=== PATIENT | male | born 2000 | race Caucasian/White ===

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

== ENCOUNTER 2019-01-18 17:23 | Emergency (ER) | payer OTHER ==
--- NOTE | 2019-01-18 18:19 | ED ---
General Adult HPI - General Chief complaint: Nausea/Vomiting/Diarrhea Stated complaint: NVD, FEVER Time Seen by Provider: 01/18/19 17:31 Source: patient, RN notes reviewed, old records reviewed Mode of arrival: ambulatory Limitations: no limitations - History of Present Illness Initial comments: 19-year-old male patient presents to ED with approximately 3 days of dry cough, sinus congestion, sore throat, nausea vomiting and diarrhea. Patient denies any abdominal pain. Patient denies any chest pain or shortness breath. Patient denies any other complaints. Patient denies any emesis today. Patient reports mild amount of loose stool today.Patient denies any headaches. Systemic: Pt denies fatigue, myalgia, fever/chills, rash. Pt denies weakness, n ight sweats, weight loss. Neuro: Pt denies headache, visual disturbances, syncope or pre-syncope. HEENT: Pt denies ocular discharge or irritation, otalgia, or notable lymphadenopathy. Cardiopulmonary: Pt denies chest pain, SOB, heart palpitations, dyspnea on exertion. Abdominal/GI: Pt denies abdominal pain. : Pt denies dysuria, burning w/ urination, frequency/urgency. Denies new onset urinary or bowel incontinence. MSK: Pt denies myalgia, loss of strength or function in extremities. Neuro: Pt denies new onset weakness, paresthesias. - Related Data Home Medications Medication Instructions Recorded Confirmed Phenyleph/Acetaminophn/Doxylam 1 cap PO BID PRN 01/18/19 01/18/19 [Vicks Dayquil-Nyquil Sinex Cap] guaiFENesin [Mucinex] 600 mg PO BID PRN 01/18/19 01/18/19 Previous Rx's Medication Instructions Recorded Doxycycline [Vibramycin] 100 mg PO BID 7 Days #14 cap 01/18/19 Ondansetron Odt [Zofran ODT] 4 mg PO Q8HR PRN #20 tab 01/18/19 Allergies Allergy/AdvReac Type Severity Reaction Status Date / Time aripiprazole [From Abilify] Allergy Unknown Verified 01/18/19 17:37 codeine Allergy Unknown Verified 01/18/19 17:37 Review of Systems ROS Statement: Those systems with pertinent positive or pertinent negative responses have been documented in the HPI. ROS Other: All systems not noted in ROS Statement are negative. Past Medical History Past Medical History: No Reported History Additional Past Medical History / Comment(s): hydrocephalus History of Any Multi-Drug Resistant Organisms: None Reported Past Surgical History: No Surgical Hx Reported Additional Past Surgical History / Comment(s): lumbar lp shunt Past Psychological History: No Psychological Hx Reported Smoking Status: Current every day smoker Past Alcohol Use History: None Reported Past Drug Use History: None Reported General Exam - General Exam Comments Initial Comments: Constitutional: NAD, AOX3, Pt has pleasant affect. HEENT: NC/AT, trachea midline, neck supple, no lymphadenopathy. Posterior pharynx non erythematous, without exudates. External ears appear normal, without discharge. Mucous membranes moist. Eyes PERRLA, EOM intact. There is no scleral icterus. No pallor noted. Cardiopulmonary: RRR, no murmurs, rubs or gallops, no JVD noted. Lungs CTAB in anterior and posterior cline. No peripheral edema. Abdominal exam: Abdomen soft and non-distended. Abdomen non-tender to palpation in all 4 quadrants. Bowel sounds active in LLQ. No hepatosplenomegaly. No ecchymosis Neuro: CN II-XII intact. No nuchal rigidity. MSK: No posterior calf tenderness bilaterally, homans sign negative bilaterally. Posterior tibialis and radial pulse +2 bilaterally. Sensation intact in upper and lower extremities. Full active ROM in upper and lower extremities, 5/5 stregnth. Limitations: no limitations Course Vital Signs 01/18/19 17:25 Temperature 98.3 F Pulse Rate 93 Respiratory 20 Rate Blood Pressure 137/75 O2 Sat by Pulse 99 Oximetry Medical Decision Making - Medical Decision Making 19-year-old male patient presents to ED with approximately 3 days of dry cough, sinus congestion, sore throat, nausea vomiting and diarrhea. Patient denies any abdominal pain. Patient denies any chest pain or shortness breath. Patient denies any other complaints. Patient denies any emesis today. Patient reports mild amount of loose stool today. Patient denies any headaches. Physical exam did not display acute pathology. Abdomen nontender to palpation. Chest x-ray did not display acute cardio pulmonary process. Patient to be discharged with one week of doxycycline for sinusitis. Patient additionally describes Zofran as needed for nausea. Patient will follow-up with primary care providers in 1-2 days. Patient return to ER condition worsens in any way. Return parameters discussed, patient was understanding. Case discussed with Dr. Lindo. - Lab Data Lab Results 01/18/19 Range/Units 18:25 Influenza Type A RNA Not Detected (Not Detectd) Influenza Type B (PCR) Not Detected (Not Detectd) Disposition Clinical Impression: Sinusitis, Nausea vomiting and diarrhea Disposition: HOME SELF-CARE Condition: Stable Instructions (If sedation given, give patient instructions): Acute Nausea and Vomiting (ED), Acute Diarrhea (ED), Sinusitis (ED) Additional Instructions: Patient to adhere to previously discussed treatment plan and will take medication(s) as directed. Patient to follow up with PCP in 1-2 days. Patient to return to ED if symptoms do not improve. Please take medication as prescribed. Please return to ER if condition worsens in anyway. Prescriptions: Doxycycline [Vibramycin] 100 mg PO BID 7 Days #14 cap Ondansetron Odt [Zofran ODT] 4 mg PO Q8HR PRN #20 tab PRN Reason: Nausea Is patient prescribed a controlled substance at d/c from ED?: No Referrals: None,Stated [Primary Care Provider] - 1-2 days [facility] [NON-STAFF] - 1-2 days
--- NOTE | 2019-01-18 18:31 | XR ---
EXAMINATION TYPE: XR chest 2V DATE OF EXAM: 01/18/2019 COMPARISON: NONE HISTORY: Fever TECHNIQUE: Frontal and lateral views of the chest are obtained. FINDINGS: Heart and mediastinum are normal. Lungs are clear. Diaphragm is normal. Bony thorax appear s intact. There is thoracic levoscoliosis. IMPRESSION: Scoliotic deformity. No cardiopulmonary disease.
[2019-01-18 19:41] VITALS: BP 131/88; RESP 18; TEMP 97.7
[2019-01-18 19:44] VITALS: PULSE 78
== END 2019-01-18 19:35 | disposition home or self-care (01) ==
LOC: EC 17:23
DX: J32.9 Chronic sinusitis, unspecified (principal); R11.2 Nausea with vomiting, unspecified; R19.7 Diarrhea, unspecified; G91.9 Hydrocephalus, unspecified; Z98.2 Presence of cerebrospinal fluid drainage device; F17.200 Nicotine dependence, unspecified, uncomplicated; Z88.5 Allergy status to narcotic agent; Z88.8 Allergy status to other drugs, medicaments and biological substances
CPT/HCPCS: 71046; 87502; 99284

== ENCOUNTER 2019-04-28 09:37 | Emergency (ER) | payer OTHER ==
[2019-04-28 09:43] VITALS: BP 125/56; PULSE 87; RESP 18; TEMP 97.6
--- NOTE | 2019-04-28 09:57 | ED ---
Upper Extremity HPI - General Chief Complaint: Extremity Injury, Upper Stated Complaint: POSS INFECTION ON SUTURES, 5TH DIGIT INJURY Time Seen by Provider: 04/28/19 09:44 Source: patient, RN notes reviewed Mode of arrival: ambulatory Limitations: no limitations - History of Present Illness Initial Comments: 19-year-old male presented from for possible infection to sutures. He had him placed on Tuesday at [facility] after laceration caused by razor grinder tetanus is updated no antibiotics given. Patient's noticed increasing redness last day or so. No fevers chills no drainage. Patient states that he smashed his finger in a door while back and states the nail still black and blue but no pain no redness no drainage. - Related Data Previous Rx's Medication Instructions Recorded Cephalexin [Keflex] 500 mg PO Q6HR #28 cap 04/28/19 Allergies Allergy/AdvReac Type Severity Reaction Status Date / Time aripiprazole [From Abilify] Allergy Unknown Verified 04/28/19 09:46 codeine Allergy Unknown Verified 04/28/19 09:46 Review of Systems ROS Statement: Those systems with pertinent positive or pertinent negative responses have been documented in the HPI. ROS Other: All systems not noted in ROS Statement are negative. Past Medical History Past Medical History: No Reported History Additional Past Medical History / Comment(s): hydrocephalus History of Any Multi-Drug Resistant Organisms: None Reported Past Surgical History: No Surgical Hx Reported Additional Past Surgical History / Comment(s): lumbar lp shunt Past Psychological History: No Psychological Hx Reported Smoking Status: Current every day smoker Past Alcohol Use History: None Reported Past Drug Use History: None Reported General Exam Limitations: no limitations General appearance: alert, in no apparent distress Head exam: Present: atraumatic, normocephalic, normal inspection Eye exam: Present: normal appearance, PERRL, EOMI. Absent: scleral icterus, conjunctival injection, periorbital swelling Respiratory exam: Present: normal lung sounds bilaterally. Absent: respiratory distress, wheezes, rales, rhonchi, stridor Cardiovascular Exam: Present: regular rate, normal rhythm, normal heart sounds. Absent: systolic murmur, diastolic murmur, rubs, gallop, clicks Extremities exam: Present: other (Left arm there is a laceration with sutures in place with mild erythema no purulent drainage, fifth digit there is a subungual hematoma which is old no tenderness no signs of infection.) Skin exam: Present: warm, dry, intact, normal color. Absent: rash Course Vital Signs 04/28/19 09:41 Temperature 97.6 F Pulse Rate 87 Respiratory 18 Rate Blood Pressure 125/56 O2 Sat by Pulse 100 Oximetry Medical Decision Making - Medical Decision Making 19-year-old male presented for possible infection. Patient has early signs of infection to his sutures. Patient placed on Keflex. We discussed wound care patient has a subungual hematoma which is old nail is loose there is no signs of necrotic skin no infection. Disposition Clinical Impression: Subungual hematoma, Infected wound Disposition: HOME SELF-CARE Condition: Stable Instructions (If sedation given, give patient instructions): Wound Infection (ED) Additional Instructions: Please return to the Emergency Department if symptoms worsen or any other concer ns. Prescriptions: Cephalexin [Keflex] 500 mg PO Q6HR #28 cap Is patient prescribed a controlled substance at d/c from ED?: No Referrals: None,Stated [Primary Care Provider] - 1-2 days Time of Disposition: 09:57
== END 2019-04-28 10:00 | disposition home or self-care (01) ==
LOC: EC 09:37
DX: S60.152A Contusion of left little finger with damage to nail, initial encounter (principal); T81.49XA Infection following a procedure, other surgical site, initial encounter; F17.200 Nicotine dependence, unspecified, uncomplicated; Z88.5 Allergy status to narcotic agent; Z88.8 Allergy status to other drugs, medicaments and biological substances; W23.0XXA Caught, crushed, jammed, or pinched between moving objects, initial encounter
CPT/HCPCS: 99283

== ENCOUNTER 2019-07-28 19:51 | Emergency (ER) | payer OTHER ==
[2019-07-28 20:02] VITALS: BP 127/68; PULSE 86; RESP 16; TEMP 98.4
--- NOTE | 2019-07-28 20:14 | ED ---
URI HPI - General Chief Complaint: Upper Respiratory Infection Stated Complaint: Cough,Runny Nose,Sore throat Source: patient Mode of arrival: ambulatory Limitations: no limitations - History of Present Illness Initial Comments: 19-year-old male with history of cough and congestion times one week. Patient states his cough and congestion for the past week. Patient states occasionally the pain is chest pain cough. Denies any chest pain and absence of cough he doesn't appear deep inspiration. Patient denies shortness of breath. Denies nausea vomiting diarrhea. Denies high fevers. Patient states he has a mild sore throats as a difficulty breathing or swallowing. Patient denies any hearing loss or ear pain. Patient denies any other complaints. Patient appears well upon arrival. Positive sick contacts grandfather has ever in the home has the same symptoms. Remaining abuse is negative. - Related Data Previous Rx's Medication Instructions Recorded Cephalexin [Keflex] 500 mg PO Q6HR #28 cap 04/28/19 Azithromycin [Zithromax Z-pack] 0 mg PO DIRECTED #6 tab 07/28/19 predniSONE 20 mg PO DAILY 5 Days #5 tab 07/28/19 Allergies Allergy/AdvReac Type Severity Reaction Status Date / Time aripiprazole [From Abilify] Allergy Unknown Verified 07/28/19 20:02 codeine Allergy Unknown Verified 07/28/19 20:02 Review of Systems ROS Statement: Those systems with pertinent positive or pertinent negative responses have been documented in the HPI. ROS Other: All systems not noted in ROS Statement are negative. Past Medical History Past Medical History: No Reported History Additional Past Medical History / Comment(s): hydrocephalus History of Any Multi-Drug Resistant Organisms: None Reported Past Surgical History: No Surgical Hx Reported Additional Past Surgical History / Comment(s): lumbar lp shunt Past Psychological History: No Psychological Hx Reported Smoking Status: Current every day smoker Past Alcohol Use History: None Reported Past Drug Use History: None Reported General Exam - General Exam Comments Initial Comments: General: The patient is awake and alert, in no distress, and does not appear acutely ill. Eye: +3 mm pupils are equal, round and reactive to light, extra-ocular movements are intact. No nystagmus. There is normal conjunctiva bilaterally. No signs of icterus. No photophobia Ears, nose, mouth and throat: There are moist mucous membranes and no oral lesions. Oropharynx was not erythematous there is no tonsillar enlargement exudates or lesions. Uvula midline. Tympanic membranes are not erythematous or is no effusions bulging or retraction. No tenderness to palpation of the mastoid. No anterior cervical lymphadenopathy. Rhinorrhea, clear and bilateral nares. No tripoding, no drooling. Neck: The neck is supple, there is no tenderness or JVD. No nuchal rigidity Cardiovascular: There is a regular rate and rhythm. No murmur, rub or gallop is appreciated. Respiratory: Lungs are clear to auscultation, respirations are non-labored, breath sounds are equal. No wheezes, stridor, rales, or rhonchi. No retractions or abdominal breathing. Gastrointestinal: Soft, non-distended, non-tender abdomen without masses or organomegaly noted. There is no rebound or guarding present. Bowel sounds are unremarkable. Musculoskeletal: Normal ROM, no tenderness. Strength 5/5. Sensation intact. Radial pulses equal bilaterally 2+. Neurological: A&O x 3. CN II-XII intact, There are no obvious motor or sensory deficits. Coordination appears grossly intact. Speech appears normal, no muffling. Skin: Skin is warm and dry and no rashes or lesions are noted. No extremity edema Psychiatric: Cooperative Limitations: no limitations Course Vital Signs 07/28/19 20:00 Temperature 98.4 F Pulse Rate 86 Respiratory 16 Rate Blood Pressure 127/68 O2 Sat by Pulse 99 Oximetry Medical Decision Making - Medical Decision Making 19-year-old male presents emergency department for chief complaint of congestion cough 1 week. Lungs clear chest x-ray no focal consolidation. Rapid strep negative. Patient appears well nontoxic vital signs stable afebrile. Positive sick contacts most likely viral syndrome patient discharged after discussing case with attending provider - Lab Data Lab Results 07/28/19 Range/Units 20:25 Group A Strep Rapid Negative (Negative) Disposition Clinical Impression: Upper respiratory infection Disposition: HOME SELF-CARE Condition: Good Instructions (If sedation given, give patient instructions): Upper Respiratory Infection (ED) Additional Instructions: Please use medication as discussed. Please follow-up with family doctor in the next 2 days. Please return to emergency room if the symptoms increase or worsen or for any other concerns. Prescriptions: predniSONE 20 mg PO DAILY 5 Days #5 tab Azithromycin [Zithromax Z-pack] 0 mg PO DIRECTED #6 tab Is patient prescribed a controlled substance at d/c from ED?: No Referrals: Meghan Griffin MD [Primary Care Provider] - 1-2 days Time of Disposition: 21:22
--- NOTE | 2019-07-28 20:38 | XR ---
EXAMINATION TYPE: XR chest 2V DATE OF EXAM: 07/28/2019 COMPARISON: 01/18/2019 HISTORY: Cough TECHNIQUE: Frontal and lateral views of the chest are obtained. FINDINGS: Heart and mediastinum are normal. Lungs are clear. There is thoracic levoscoliosis. Diaphr agm is normal. Bony thorax is intact. IMPRESSION: Levoscoliosis. No active cardiopulmonary disease. No change.
== END 2019-07-28 21:34 | disposition home or self-care (01) ==
LOC: EC 19:51
DX: J06.9 Acute upper respiratory infection, unspecified (principal); F17.200 Nicotine dependence, unspecified, uncomplicated; Z88.5 Allergy status to narcotic agent; Z88.8 Allergy status to other drugs, medicaments and biological substances
CPT/HCPCS: 71046; 87081; 87430; 99283

== ENCOUNTER 2020-02-20 19:18 | Inpatient (IN) | payer OTHER ==
[2020-02-20] MEDS: NALOXONE 0.4 MG/ML 10 ML VIAL IVP PRN ×2 (19:19→19:21)
[2020-02-20] MEDS ORDERED: ETOMIDATE 2 MG/ML 10 ML VIAL IVP STA (19:27)
[2020-02-20] MEDS ORDERED: SUCCINYLCHOLINE CHLORIDE VIAL 200 MG/10 ML VIAL IV STA (19:34)
[2020-02-20] MEDS ORDERED: LORazepam 2 MG/ML INJ IV PRN (19:36)
[2020-02-20] MEDS ORDERED: IPRATROPIUM-ALBUTEROL 3 ML NEB INHALATION PRN (19:36)
--- NOTE | 2020-02-20 19:38 | ED ---
General Adult HPI - General Chief complaint: Overdose Stated complaint: Overdose Time Seen by Provider: 02/20/20 19:23 Source: EMS, RN notes reviewed Mode of arrival: EMS Limitations: altered mental status, physical limitation - History of Present Illness Initial comments: Patient is unresponsive 20 male presenting to the emergency department with reported overdose. Patient supposedly took a large amount of alcohol as well as multiple muscle relaxers. Patient was helped into a room by his friend. Patient and friend then later found unresponsive. Patient given Narcan without improvement of symptoms by EMS. Patient is unresponsive and provides no history. - Related Data Home Medications Medication Instructions Recorded Confirmed No Known Home Medications 02/20/20 02/20/20 Allergies Allergy/AdvReac Type Severity Reaction Status Date / Time aripiprazole [From Abilify] Allergy Unknown Verified 02/20/20 19:47 codeine Allergy Unknown Verified 02/20/20 19:47 Review of Systems ROS Statement: Those systems with pertinent positive or pertinent negative responses have been documented in the HPI. ROS Other: All systems not noted in ROS Statement are negative. Limitations: ROS unobtainable due to patients medical condition Past Medical History Past Medical History: No Reported History Additional Past Medical History / Comment(s): hydrocephalus History of Any Multi-Drug Resistant Organisms: None Reported Past Surgical History: No Surgical Hx Reported Additional Past Surgical History / Comment(s): lumbar lp shunt Past Psychological History: No Psychological Hx Reported Smoking Status: Current every day smoker Past Alcohol Use History: None Reported Past Drug Use History: None Reported General Exam Limitations: altered mental status, physical limitation General appearance: obtunded, other (Marked decreased respirations. No response to pain.) Head exam: Present: atraumatic Eye exam: Present: normal appearance ENT exam: Present: normal oropharynx Neck exam: Present: normal inspection Respiratory exam: Present: other (Decreased respiratory rate) Cardiovascular Exam: Present: regular rate, normal rhythm GI/Abdominal exam: Present: soft. Absent: tenderness Extremities exam: Present: normal inspection Neurological exam: Present: altered Expanded Eye Response: (1) no response Motor Response: (4) withdraws to pain (Minimally with aggressive sternal rub) Verbal Response: (1) no verbal response Psychiatric exam: Present: other (Nonverbal) Skin exam: Present: other (Track oropeza) Course Vital Signs 02/20/20 02/20/20 02/20/20 19:19 19:29 19:39 Temperature 98 F 98.6 F Pulse Rate 56 L 47 L Pulse Rate [ Bilateral Supine Radial] Respiratory 16 10 L 9 L Rate Blood Pressure 143/104 164/143 O2 Sat by Pulse 94 L 100 Oximetry 02/20/20 02/20/20 02/20/20 19:45 20:00 20:15 Temperature Pulse Rate 47 L 44 L Pulse Rate [ Bilateral Supine Radial] Respiratory 9 L 16 Rate Blood Pressure 176/120 175/120 191/116 O2 Sat by Pulse 100 100 Oximetry 02/20/20 02/20/20 02/20/20 20:19 20:30 20:43 Temperature Pulse Rate 43 L 44 L Pulse Rate [ 48 L Bilateral Supine Radial] Respiratory 10 L 20 Rate Blood Pressure 177/117 179/118 O2 Sat by Pulse 100 100 Oximetry 02/20/20 02/20/20 02/20/20 20:44 20:45 20:46 Temperature Pulse Rate 43 L 44 L 44 L Pulse Rate [ Bilateral Supine Radial] Respiratory 16 22 16 Rate Blood Pressure 179/118 179/118 162/114 O2 Sat by Pulse 100 100 99 Oximetry 02/20/20 02/20/20 02/20/20 20:47 20:48 20:49 Temperature Pulse Rate 43 L 44 L 44 L Pulse Rate [ Bilateral Supine Radial] Respiratory 20 20 20 Rate Blood Pressure 162/114 162/114 162/114 O2 Sat by Pulse 99 100 98 Oximetry 02/20/20 02/20/20 02/20/20 20:50 20:51 20:52 Temperature Pulse Rate 43 L 44 L 44 L Pulse Rate [ Bilateral Supine Radial] Respiratory 20 20 20 Rate Blood Pressure 162/114 162/114 162/114 O2 Sat by Pulse 100 99 97 Oximetry 02/20/20 02/20/20 02/20/20 20:53 20:54 20:55 Temperature Pulse Rate 45 L 46 L 47 L Pulse Rate [ Bilateral Supine Radial] Respiratory 20 20 20 Rate Blood Pressure 162/114 162/114 162/114 O2 Sat by Pulse 97 100 100 Oximetry 02/20/20 02/20/20 02/20/20 20:56 20:57 20:58 Temperature Pulse Rate 47 L 46 L 43 L Pulse Rate [ Bilateral Supine Radial] Respiratory 26 H 20 20 Rate Blood Pressure 162/114 162/114 162/114 O2 Sat by Pulse 100 99 99 Oximetry 02/20/20 02/20/20 02/20/20 20:59 21:00 21:01 Temperature Pulse Rate 44 L 44 L 45 L Pulse Rate [ Bilateral Supine Radial] Respiratory 20 20 27 H Rate Blood Pressure 162/114 162/114 159/109 O2 Sat by Pulse 98 99 100 Oximetry - Reevaluation(s) Reevaluation #1: 02/20/20 19:45 Patient does not demonstrate ability to protect airway. Patient is not improved with 4 mg of Narcan. Patient was intubated by [facility] [employer] [facility] 02/20/20 21:08 Family states there was concern that patient reportedly took 20 baclofen. EKG Findings - EKG Comments: EKG Findings:: Normal sinus rhythm at 80. MD 140. QRS 104. QT 410. QTc 472. Normal axis. LVH criteria. Prominent T waves. Medical Decision Making - Medical Decision Making Patient again reevaluated and unchanged. Case was discussed with practitioner Mireya, covering for Dr. Angulo, who will admit. Case also discussed with Dr. Lopes, who will consult for critical care. - Lab Data Result diagrams: 02/20/20 19:18 02/20/20 19:18 Lab Results 02/20/20 02/20/20 02/20/20 Range/Units 19:18 19:18 19:18 WBC 17.1 H (3.8-10.6) k/uL RBC 5.30 (4.30-5.90) m/uL Hgb 16.5 (13.0-17.5) gm/dL Hct 48.9 (39.0-53.0) % MCV 92.2 (80.0-100.0) fL MCH 31.1 (25.0-35.0) pg MCHC 33.7 (31.0-37.0) g/dL RDW 12.7 (11.5-15.5) % Plt Count 266 (150-450) k/uL Neutrophils % 79 % Lymphocytes % 14 % Monocytes % 6 % Eosinophils % 0 % Basophils % 0 % Neutrophils # 13.5 H (1.3-7.7) k/uL Lymphocytes # 2.3 (1.0-4.8) k/uL Monocytes # 0.9 (0-1.0) k/uL Eosinophils # 0.1 (0-0.7) k/uL Basophils # 0.1 (0-0.2) k/uL PT 10.5 (9.0-12.0) sec INR 1.0 (<1.2) Carbon Monoxide, Quant (<10.0) % Sodium (137-145) mmol/L Potassium (3.5-5.1) mmol/L Chloride (98-107) mmol/L Carbon Dioxide (22-30) mmol/L Anion Gap mmol/L BUN (9-20) mg/dL Creatinine (0.66-1.25) mg/dL Est GFR (CKD-EPI)AfAm (>60 ml/min/1.73 sqM) Est GFR (CKD-EPI)NonAf (>60 ml/min/1.73 sqM) Glucose (74-99) mg/dL Calcium (8.4-10.2) mg/dL Magnesium (1.6-2.3) mg/dL Total Bilirubin (0.2-1.3) mg/dL AST (17-59) U/L ALT (4-49) U/L Alkaline Phosphatase (38-126) U/L Creatine Kinase (55-170) U/L Total Protein (6.3-8.2) g/dL Albumin (3.5-5.0) g/dL Salicylates mg/dL Urine Opiates Screen Not Detected (NotDetected) Ur Oxycodone Screen Not Detected (NotDetected) Urine Methadone Screen Not Detected (NotDetected) Ur Propoxyphene Screen Not Detected (NotDetected) Acetaminophen ug/mL Ur Barbiturates Screen Not Detected (NotDetected) U Tricyclic Antidepress Not Detected (NotDetected) Ur Phencyclidine Scrn Not Detected (NotDetected) Ur Amphetamines Screen Not Detected (NotDetected) U Methamphetamines Scrn Not Detected (NotDetected) U Benzodiazepines Scrn Not Detected (NotDetected) Urine Cocaine Screen Not Detected (NotDetected) U Marijuana (THC) Screen Detected H (NotDetected) Serum Alcohol mg/dL 02/20/20 02/20/20 02/20/20 Range/Units 19:18 19:18 20:55 WBC (3.8-10.6) k/uL RBC (4.30-5.90) m/uL Hgb (13.0-17.5) gm/dL Hct (39.0-53.0) % MCV (80.0-100.0) fL MCH (25.0-35.0) pg MCHC (31.0-37.0) g/dL RDW (11.5-15.5) % Plt Count (150-450) k/uL Neutrophils % % Lymphocytes % % Monocytes % % Eosinophils % % Basophils % % Neutrophils # (1.3-7.7) k/uL Lymphocytes # (1.0-4.8) k/uL Monocytes # (0-1.0) k/uL Eosinophils # (0-0.7) k/uL Basophils # (0-0.2) k/uL PT (9.0-12.0) sec INR (<1.2) Carbon Monoxide, Quant 6.4 (<10.0) % Sodium 137 (137-145) mmol/L Potassium 3.6 (3.5-5.1) mmol/L Chloride 106 (98-107) mmol/L Carbon Dioxide 26 (22-30) mmol/L Anion Gap 5 mmol/L BUN 15 (9-20) mg/dL Creatinine 0.64 L (0.66-1.25) mg/dL Est GFR (CKD-EPI)AfAm >90 (>60 ml/min/1.73 sqM) Est GFR (CKD-EPI)NonAf >90 (>60 ml/min/1.73 sqM) Glucose 99 (74-99) mg/dL Calcium 8.3 L (8.4-10.2) mg/dL Magnesium 2.0 (1.6-2.3) mg/dL Total Bilirubin 0.3 (0.2-1.3) mg/dL AST 34 (17-59) U/L ALT 12 (4-49) U/L Alkaline Phosphatase 67 (38-126) U/L Creatine Kinase 54 L 53 L (55-170) U/L Total Protein 6.2 L (6.3-8.2) g/dL Albumin 3.7 (3.5-5.0) g/dL Salicylates <1.0 mg/dL Urine Opiates Screen (NotDetected) Ur Oxycodone Screen (NotDetected) Urine Methadone Screen (NotDetected) Ur Propoxyphene Screen (NotDetected) Acetaminophen <10.0 ug/mL Ur Barbiturates Screen (NotDetected) U Tricyclic Antidepress (NotDetected) Ur Phencyclidine Scrn (NotDetected) Ur Amphetamines Screen (NotDetected) U Methamphetamines Scrn (NotDetected) U Benzodiazepines Scrn (NotDetected) Urine Cocaine Screen (NotDetected) U Marijuana (THC) Screen (NotDetected) Serum Alcohol <10 mg/dL - Radiology Data Radiology results: report reviewed (Computed tomography scan of the brain reveals no acute process), image reviewed (Chest x-ray shows appropriately placed ET tube as well as NG tube. Stable scatter left perihilar interstitial markings) Critical Care Time Critical Care Time: Yes Total Critical Care Time: 33 Disposition Clinical Impression: Accidental drug overdose, Respiratory arrest Disposition: ADMITTED IP TO THIS HOSP Is patient prescribed a controlled substance at d/c from ED?: No Referrals: None,Stated [Primary Care Provider] - 1-2 days Decision Time: 21:08
[2020-02-20] MEDS: PROPOFOL 1,000 MG in EMPTY BAG 1 BAG IV SCH (19:44)
--- NOTE | 2020-02-20 19:50 | XR ---
EXAMINATION TYPE: XR chest 1V DATE OF EXAM: 02/20/2020 COMPARISON: 07/28/2019 HISTORY: Line and tube placement TECHNIQUE: Single frontal view of the chest is obtained. FINDINGS: Levoscoliosis of the thoracic spine is seen with exaggerated left pulmonary vasculature an d interstitium. Left perihilar airspace disease is possible. Right lung remains clear. Endotracheal t ube is located approximately 4.5 cm from the winter. Orogastric tube is located appropriately in the left upper quadrant in the region of the gastric fundus with its fenestrated portion beyond the gastr oesophageal junction. IMPRESSION: 1. Endotracheal tube placed 4.5 cm from the winter and appropriately placed enteric tube. Line 2. Stable scattered left perihilar interstitial markings that may be secondary to the thoracic levosc oliosis and/or left perihilar airspace disease.
[2020-02-20 19:56] LABS: Basophils # (A) 0.1 k/uL (0-0.2); Basophils % (A) 0 %; Eosinophils # (A) 0.1 k/uL (0-0.7); Eosinophils % (A) 0 %; HCT 48.9 % (39.0-53.0); HGB 16.5 gm/dL (13.0-17.5); Lymphocytes # (A) 2.3 k/uL (1.0-4.8); Lymphocytes % (A) 14 %; MCH 31.1 pg (25.0-35.0); MCHC 33.7 g/dL (31.0-37.0); MCV 92.2 fL (80.0-100.0); Mean Platelet Volume 7.4; Monocytes # (A) 0.9 k/uL (0-1.0); Monocytes % (A) 6 %; Neutrophils # (A) 13.5 k/uL (1.3-7.7); Neutrophils % (A) 79 %; Platelet Count 266 k/uL (150-450); RDW 12.7 % (11.5-15.5); WBC 17.1 k/uL (3.8-10.6)
[2020-02-20 20:01] LABS: ALT 12 U/L (4-49); AST 34 U/L (17-59); Acetaminophen <10.0 ug/mL; African American GFR (CKD) >90 (>60 ml/min/1.73 sqM); Albumin 3.7 g/dL (3.5-5.0); Alcohol <10 mg/dL; Alkaline Phosphatase 67 U/L (38-126); Anion Gap 5 mmol/L; Blood Urea Nitrogen 15 mg/dL (9-20); Calcium 8.3 mg/dL (8.4-10.2); Carbon Dioxide 26 mmol/L (22-30); Chloride 106 mmol/L (98-107); Creatine Kinase 54 U/L (55-170); Glucose 99 mg/dL (74-99); Non-African American GFR(CKD) >90 (>60 ml/min/1.73 sqM); Potassium 3.6 mmol/L (3.5-5.1); Prothrombin Time 10.5 sec (9.0-12.0); Salicylate <1.0 mg/dL; Sodium 137 mmol/L (137-145); Total Bilirubin 0.3 mg/dL (0.2-1.3); Total Protein 6.2 g/dL (6.3-8.2)
[2020-02-20 20:13] LABS: Amphetamine Screen,Urine Not Detected (NotDetected); Barbiturate Screen,Urine Not Detected (NotDetected); Benzodiazepines Screen,Urine Not Detected (NotDetected); Cocaine Screen,Urine Not Detected (NotDetected); Methadone Screen, Urine Not Detected (NotDetected); Opiate Screen,Urine Not Detected (NotDetected); Oxycodone Screen, Urine Not Detected (NotDetected); Phencyclidine Screen,Urine Not Detected (NotDetected); Tricyclic Antidepressant,Urine Not Detected (NotDetected); Urn Cannabinoid Scrn Detected (NotDetected)
[2020-02-20] MEDS: LORazepam 2 MG/ML INJ IV PRN (20:14)
--- NOTE | 2020-02-20 20:35 | CT ---
EXAMINATION TYPE: CT brain wo con DATE OF EXAM: 02/20/2020 COMPARISON: 09/20/2012 HISTORY: Altered mental status. CT DLP: 1091.4 mGycm Automated exposure control for dose reduction was used. Ventricles and sulci appear normal. There is no mass effect nor midline shift. There is no sign of in tracranial hemorrhage. The calvarium is intact. IMPRESSION: Negative head CT scan. No change.
[2020-02-20 21:08] LABS: ABG Base Excess -2.1 mmol/L; ABG HCO3 23 mmol/L (21-25); ABG PCO2 36 mmHg (35-45); ABG PH 7.41 (7.35-7.45); ABG PO2 >400 mmHg (83-108); ABG TCO2 24 mmol/L (19-24); Allen Test Performed? Yes
[2020-02-20] MEDS ORDERED: NALOXONE 0.4 MG/ML 1 ML VIAL IV PRN (21:08)
[2020-02-20] MEDS: DEXTROSE 5%-0.45% NACL 1,000 ML IV SCH (21:43)
[2020-02-20 22:54] LABS: Glucose,Whole Blood 114 mg/dL (75-99)
[2020-02-20] MEDS: IPRATROPIUM-ALBUTEROL 3 ML NEB INHALATION SCH ×2 (23:25→23:49)
[2020-02-20] MEDS: CHLORHEXIDINE GLUCONATE 15 ML CUP MUCOUS MEM SCH (23:47)
[2020-02-21] MEDS: PROPOFOL 1,000 MG in EMPTY BAG 1 BAG IV SCH ×3 (00:38→20:19)
[2020-02-21] MEDS ORDERED: POTASSIUM BICARBONATE/CIT AC 20 MEQ TABLET.EFF NG-TUBE SCH (03:00)
[2020-02-21] MEDS: IPRATROPIUM-ALBUTEROL 3 ML NEB INHALATION SCH ×5 (04:20→19:28)
[2020-02-21] MEDS: DEXTROSE 5%-0.45% NACL 1,000 ML IV SCH ×3 (05:08→20:18)
[2020-02-21 05:44] LABS: Basophils % (A) 0 %; Eosinophils # (A) 0.1 k/uL (0-0.7); Eosinophils % (A) 1 %; HCT 49.7 % (39.0-53.0); HGB 16.2 gm/dL (13.0-17.5); Lymphocytes # (A) 2.4 k/uL (1.0-4.8); Lymphocytes % (A) 19 %; MCH 30.4 pg (25.0-35.0); MCHC 32.7 g/dL (31.0-37.0); MCV 93.1 fL (80.0-100.0); Mean Platelet Volume 7.2; Monocytes # (A) 0.9 k/uL (0-1.0); Monocytes % (A) 7 %; Neutrophils % (A) 72 %; Platelet Count 287 k/uL (150-450); RBC 5.34 m/uL (4.30-5.90); RDW 12.8 % (11.5-15.5); WBC 12.6 k/uL (3.8-10.6)
[2020-02-21 06:25] LABS: ALT 11 U/L (4-49); AST 19 U/L (17-59); African American GFR (CKD) >90 (>60 ml/min/1.73 sqM); Albumin 3.4 g/dL (3.5-5.0); Alkaline Phosphatase 65 U/L (38-126); Anion Gap 5 mmol/L; Blood Urea Nitrogen 9 mg/dL (9-20); Calcium 8.7 mg/dL (8.4-10.2); Carbon Dioxide 27 mmol/L (22-30); Chloride 105 mmol/L (98-107); Glucose 114 mg/dL (74-99); Non-African American GFR(CKD) >90 (>60 ml/min/1.73 sqM); Potassium 4.4 mmol/L (3.5-5.1); Sodium 137 mmol/L (137-145); Total Bilirubin 0.3 mg/dL (0.2-1.3); Total Protein 5.9 g/dL (6.3-8.2)
--- NOTE | 2020-02-21 06:39 | XR ---
EXAMINATION TYPE: XR chest 1V portable DATE OF EXAM: 02/21/2020 CLINICAL HISTORY: Difficulty breathing progress study. TECHNIQUE: Single AP portable upright view of the chest is obtained. COMPARISON: Chest x-ray from one day earlier FINDINGS: Stable endotracheal and orogastric tubes. No new suspicious focal airspace opacity, pleura l effusion, or pneumothorax seen bilaterally. Interval marked improvement in left perihilar airspace opacity. Cardiac silhouette size is stable and within normal limits. Underlying levoconvex scoliosis centered mid to lower thoracic spine redemonstrated. IMPRESSION: Marked interval improvement in left perihilar acute infiltrate and/or edema. No new infil trate is present.
[2020-02-21 07:38] LABS: ABG Base Excess 4.9 mmol/L; ABG HCO3 30 mmol/L (21-25); ABG Oxygen Saturation 99.5 % (94-97); ABG PCO2 47 mmHg (35-45); ABG PH 7.41 (7.35-7.45); ABG PO2 187 mmHg (83-108); ABG TCO2 31 mmol/L (19-24); Allen Test Performed? Yes
[2020-02-21] MEDS: PANTOPRAZOLE 40 MG/10 ML VIAL IV SCH (08:33)
[2020-02-21] MEDS: LORazepam 2 MG/ML INJ IV PRN (08:33)
[2020-02-21] MEDS: CHLORHEXIDINE GLUCONATE 15 ML CUP MUCOUS MEM SCH ×2 (08:33→20:18)
--- NOTE | 2020-02-21 11:47 | P.CNPUL ---
History of Present Illness Consult date: 02/21/20 Requesting physician: Zulema Angulo Reason for consult: other (Drug overdose) Chief complaint: Altered mental status History of present illness: This is a 20-year-old white male, unknown past medical history, patient was brought into the emergency room yesterday with reported overdose. Supposedly the patient took a large amount of alcohol and multiple muscle relaxers. Then the patient became unresponsive, and EMS was notified. Upon EMS arrival, patient received Narcan, he had no responses whatsoever. Patient was hemodynamically stable, but was unresponsive upon arrival to the ER. Upon arrival, patient was intubated, placed on mechanical ventilation. Poison control mostly recommended supportive care measures. His drug screen came back mostly negative except for positive for marijuana. His acetaminophen level was below 10 salicylates level was below 1 and his serum alcohol level was less than 10. Covid 19 PCR was negative. Chest x-ray showed no evidence of infiltrate. CT of the brain was also negative. Upon my evaluation today, patient is in the ICU, he is on mechanical ventilation. Assist control rate of 20, volume is 400 FiO2 is 40% PEEP of 5. ABG showed a pO2 of 187 pCO2 of 47 pH of 7.41. Patient again is hemodynamically stable, he is in sinus rhythm sometimes sinus tachycardia with a rate of 116. On propofol, and I have recommended stopping the propofol, addressing the patient's mental status, weaning parameters, and if possible the patient will be given a weaning trial in the next few hours. Review of Systems ROS unobtainable: due to endotracheal tube, due to mental status Past Medical History Past Medical History: No Reported History Additional Past Medical History / Comment(s): hydrocephalus History of Any Multi-Drug Resistant Organisms: None Reported Past Surgical History: No Surgical Hx Reported Additional Past Surgical History / Comment(s): lumbar lp shunt Past Psychological History: No Psychological Hx Reported Smoking Status: Unknown if ever smoked Past Alcohol Use History: Unable to Obtain Past Drug Use History: Marijuana Medications and Allergies Home Medications Medication Instructions Recorded Confirmed Type No Known Home Medications 02/20/20 02/20/20 History Allergies Allergy/AdvReac Type Severity Reaction Status Date / Time aripiprazole [From Abilify] Allergy Unknown Verified 02/20/20 19:47 codeine Allergy Unknown Verified 02/20/20 19:47 Physical Exam Vitals: Vital Signs Temp Pulse Pulse Resp BP Pulse Ox 04/30/20 10:26 58 L 02/21/20 10:12 69 02/21/20 09:00 64 20 148/98 98 02/21/20 08:30 62 20 146/96 98 02/21/20 08:00 99.3 F 60 13 156/102 98 02/21/20 07:30 64 20 152/108 97 02/21/20 07:00 63 20 148/106 96 02/21/20 06:30 60 20 144/100 96 02/21/20 06:00 60 20 138/94 95 02/21/20 05:30 62 20 154/101 95 02/21/20 05:00 64 20 132/92 98 02/21/20 04:39 61 02/21/20 04:30 68 20 136/95 97 02/21/20 04:25 64 02/21/20 04:00 97.9 F 59 L 20 139/99 98 02/21/20 03:44 20 02/21/20 03:30 63 16 157/107 98 02/21/20 03:00 55 L 20 158/103 98 02/21/20 02:30 62 20 144/95 97 02/21/20 02:00 64 20 143/107 98 02/21/20 01:30 70 20 137/106 99 02/21/20 01:00 68 20 134/96 99 02/21/20 00:45 74 20 134/96 99 02/21/20 00:30 62 20 135/97 99 02/21/20 00:21 63 20 135/97 99 02/21/20 00:15 58 L 20 138/98 99 02/21/20 00:00 97.5 F L 60 20 133/93 100 02/20/20 23:50 62 02/20/20 23:45 68 20 133/93 100 02/20/20 23:30 59 L 20 174/115 100 02/20/20 23:25 65 02/20/20 23:15 55 L 20 173/115 100 02/20/20 23:09 20 02/20/20 23:00 96.6 F L 52 L 20 152/103 100 02/20/20 22:50 47 L 24 02/20/20 22:00 50 L 20 152/106 100 04/29/20 21:45 50 L 20 156/107 100 02/20/20 21:30 47 L 20 162/109 100 02/20/20 21:15 46 L 20 159/109 100 02/20/20 21:01 45 L 27 H 159/109 100 02/20/20 21:00 44 L 20 162/114 99 02/20/20 20:59 44 L 20 162/114 98 02/20/20 20:58 43 L 20 162/114 99 02/20/20 20:57 46 L 20 162/114 99 02/20/20 20:56 47 L 26 H 162/114 100 02/20/20 20:55 47 L 20 162/114 100 02/20/20 20:54 46 L 20 162/114 100 02/20/20 20:53 45 L 20 162/114 97 02/20/20 20:52 44 L 20 162/114 97 02/20/20 20:51 44 L 20 162/114 99 02/20/20 20:50 43 L 20 162/114 100 02/20/20 20:49 44 L 20 162/114 98 02/20/20 20:48 44 L 20 162/114 100 02/20/20 20:47 43 L 20 162/114 99 02/20/20 20:46 44 L 16 162/114 99 02/20/20 20:45 44 L 22 179/118 100 02/20/20 20:44 43 L 16 179/118 02/20/20 20:43 44 L 20 179/118 100 02/20/20 20:30 43 L 10 L 177/117 100 02/20/20 20:19 48 L 02/20/20 20:15 44 L 16 191/116 100 02/20/20 20:00 175/120 02/20/20 19:45 47 L 9 L 176/120 100 02/20/20 19:39 98.6 F 47 L 9 L 164/143 100 02/20/20 19:29 98 F 56 L 10 L 143/104 94 L 02/20/20 19:21 16 02/20/20 19:19 10 L Intake and Output 02/20/20 02/21/20 02/21/20 22:59 06:59 14:59 Intake Total 2.803 1815.223 403.338 Output Total 275 690 225 Balance -789.063 2336.223 178.338 Intake: Amount of Fluid Infused ( 700 ml) Intake, IV Titration 2.803 1115.223 403.338 Amount Dextrose 5%-0.45% NaCl 1, 1000 375 000 ml @ 125 mls/hr IV . Q8H [facility] Rx#:[id number] Propofol 1,000 mg In 2.803 115.223 28.338 Empty Bag 1 bag @ Titrate IV .Q0M [facility] Rx#: [id number] Output: Urine 275 690 225 Other: Voiding Method Indwelling Catheter Indwelling Catheter Weight 58.4 kg 57.2 kg Physical Exam: Revealed a 20-year-old white male in no distress, on mechanical ventilation. Head: Atraumatic, normocephalic. Endotracheal tube and orogastric tube are intact. HEENT:[Neck is supple.] [No neck masses.] [No thyromegaly.] [No JVD.] PERRLA, EOMI, no icterus. Chest: [Clear throughout, no crackles, no rhonchi, no wheezes.] Cardiac Exam: [Normal S1 and S2, no S3 gallop, no murmur.] Abdomen: [Soft, nontender, no megaly, no rebound, no guarding, normal bowel sounds.] Extremities: [Positive clubbing, no edema, no cyanosis.] Neurological Exam: Sedated, on propofol, not following any instructions, not arousable. Psychiatric: Could not be assessed. We will assess was the patient is off propofol. Skin: No rashes. Results - Laboratory Findings CBC and BMP: 02/21/20 04:28 02/21/20 04:28 ABG ABG pH 7.41 (7.35-7.45) 02/21/20 07:23 ABG pCO2 47 mmHg (35-45) H 02/21/20 07:23 ABG pO2 187 mmHg (83-108) H 02/21/20 07:23 ABG O2 Saturation 99.5 % (94-97) H 02/21/20 07:23 PT/INR, D-dimer PT 10.5 sec (9.0-12.0) 02/20/20 19:18 INR 1.0 (<1.2) 02/20/20 19:18 Abnormal lab findings: Abnormal Labs 04/02/20/20 02/20/20 19:18 19:18 19:18 WBC 17.1 H Neutrophils # 13.5 H ABG pCO2 ABG pO2 ABG HCO3 ABG Total CO2 ABG O2 Saturation Creatinine 0.64 L Glucose POC Glucose (mg/dL) Calcium 8.3 L Creatine Kinase 54 L Total Protein 6.2 L Albumin U Marijuana (THC) Screen Detected H 02/20/20 02/20/20 02/20/20 20:55 21:04 22:52 WBC Neutrophils # ABG pCO2 ABG pO2 >400 H ABG HCO3 ABG Total CO2 ABG O2 Saturation 100.0 H Creatinine Glucose POC Glucose (mg/dL) 114 H Calcium Creatine Kinase 53 L Total Protein Albumin U Marijuana (THC) Screen 02/21/20 02/21/20 02/21/20 04:28 04:28 07:23 WBC 12.6 H Neutrophils # 9.0 H ABG pCO2 47 H ABG pO2 187 H ABG HCO3 30 H ABG Total CO2 31 H ABG O2 Saturation 99.5 H Creatinine 0.61 L Glucose 114 H POC Glucose (mg/dL) Calcium Creatine Kinase Total Protein 5.9 L Albumin 3.4 L U Marijuana (THC) Screen - Diagnostic Findings Chest x-ray: image reviewed (No evidence of active disease.) Assessment and Plan Assessment: Impression: Acute hypoxic respiratory failure secondary to drug overdose, Supposedly baclofen overdose.. Failure to respond to Narcan upon presentation. Digital clubbing on physical examination, exact etiology is not clear, would have to be investigated on outpatient basis. Recommendation: Continue ventilatory support. Hold propofol and assess possibility of weaning and extubation today. Continue GI and DVT prophylaxis. Supportive care measures. Consider psychiatric consultation once the patient is extubated. We'll continue to follow. Time with Patient: Greater than 30
--- NOTE | 2020-02-21 11:50 | P.HPIM ---
History of Present Illness Patient is admitted with the possible and reported overdose exact overdose medication is unknown urine drug screen was only positive for tetrahydrocannabinol, because of unresponsiveness patient was intubated for protection of airway. The friend who brought into ER later found unresponsive as well with the similar urine drug screen was subsequently intubated as well. Patient is mildly bradycardic at this time patient is on sedation with baseline settings patient is undergoing weaning trial once he is more awake after sedation vacation plan is to extubate him today. Chest x-ray from today is better than yesterday without any infiltrate no fever Review of Systems Unable to assess as patient is intubated Past Medical History Past Medical History: No Reported History Additional Past Medical History / Comment(s): hydrocephalus History of Any Multi-Drug Resistant Organisms: None Reported Past Surgical History: No Surgical Hx Reported Additional Past Surgical History / Comment(s): lumbar lp shunt Past Psychological History: No Psychological Hx Reported Smoking Status: Unknown if ever smoked Past Alcohol Use History: Unable to Obtain Past Drug Use History: Marijuana Medications and Allergies Home Medications Medication Instructions Recorded Confirmed Type No Known Home Medications 02/20/20 02/20/20 History Allergies Allergy/AdvReac Type Severity Reaction Status Date / Time aripiprazole [From Abilify] Allergy Unknown Verified 02/20/20 19:47 codeine Allergy Unknown Verified 02/20/20 19:47 Physical Exam Vitals: Vital Signs Temp Pulse Pulse Resp BP Pulse Ox 02/21/20 10:26 58 L 02/21/20 10:12 69 02/21/20 09:00 64 20 148/98 98 02/21/20 08:30 62 20 146/96 98 02/21/20 08:00 99.3 F 60 13 156/102 98 02/21/20 07:30 64 20 152/108 97 02/21/20 07:00 63 20 148/106 96 02/21/20 06:30 60 20 144/100 96 02/21/20 06:00 60 20 138/94 95 02/21/20 05:30 62 20 154/101 95 02/21/20 05:00 64 20 132/92 98 02/21/20 04:39 61 02/21/20 04:30 68 20 136/95 97 02/21/20 04:25 64 02/21/20 04:00 97.9 F 59 L 20 139/99 98 02/21/20 03:44 20 02/21/20 03:30 63 16 157/107 98 02/21/20 03:00 55 L 20 158/103 98 02/21/20 02:30 62 20 144/95 97 02/21/20 02:00 64 20 143/107 98 02/21/20 01:30 70 20 137/106 99 02/21/20 01:00 68 20 134/96 99 02/21/20 00:45 74 20 134/96 99 02/21/20 00:30 62 20 135/97 99 02/21/20 00:21 63 20 135/97 99 02/21/20 00:15 58 L 20 138/98 99 02/21/20 00:00 97.5 F L 60 20 133/93 100 02/20/20 23:50 62 02/20/20 23:45 68 20 133/93 100 02/20/20 23:30 59 L 20 174/115 100 02/20/20 23:25 65 02/20/20 23:15 55 L 20 173/115 100 02/20/20 23:09 20 02/20/20 23:00 96.6 F L 52 L 20 152/103 100 02/20/20 22:50 47 L 24 02/20/20 22:00 50 L 20 152/106 100 02/20/20 21:45 50 L 20 156/107 100 02/20/20 21:30 47 L 20 162/109 100 02/20/20 21:15 46 L 20 159/109 100 02/20/20 21:01 45 L 27 H 159/109 100 02/20/20 21:00 44 L 20 162/114 99 02/20/20 20:59 44 L 20 162/114 98 02/20/20 20:58 43 L 20 162/114 99 02/20/20 20:57 46 L 20 162/114 99 02/20/20 20:56 47 L 26 H 162/114 100 02/20/20 20:55 47 L 20 162/114 100 02/20/20 20:54 46 L 20 162/114 100 02/20/20 20:53 45 L 20 162/114 97 02/20/20 20:52 44 L 20 162/114 97 02/20/20 20:51 44 L 20 162/114 99 02/20/20 20:50 43 L 20 162/114 100 02/20/20 20:49 44 L 20 162/114 98 02/20/20 20:48 44 L 20 162/114 100 02/20/20 20:47 43 L 20 162/114 99 02/20/20 20:46 44 L 16 162/114 99 02/20/20 20:45 44 L 22 179/118 100 02/20/20 20:44 43 L 16 179/118 100 02/20/20 20:43 44 L 20 179/118 100 02/20/20 20:30 43 L 10 L 177/117 100 02/20/20 20:19 48 L 02/20/20 20:15 44 L 16 191/116 100 02/20/20 20:00 175/120 02/20/20 19:45 47 L 9 L 176/120 100 02/20/20 19:39 98.6 F 47 L 9 L 164/143 100 02/20/20 19:29 98 F 56 L 10 L 143/104 94 L 02/20/20 19:21 16 02/20/20 19:19 10 L Intake and Output 02/20/20 02/21/20 02/21/20 22:59 06:59 14:59 Intake Total 2.803 1815.223 403.338 Output Total 275 690 225 Balance -688.359 2016.223 178.338 Intake: Amount of Fluid Infused ( 700 ml) Intake, IV Titration 2.803 1115.223 403.338 Amount Dextrose 5%-0.45% NaCl 1, 1000 375 000 ml @ 125 mls/hr IV . Q8H [facility] Rx#:[id number] Propofol 1,000 mg In 2.803 115.223 28.338 Empty Bag 1 bag @ Titrate IV .Q0M [facility] Rx#: [id number] Output: Urine 275 690 225 Other: Voiding Method Indwelling Catheter Indwelling Catheter Weight 58.4 kg 57.2 kg PHYSICAL EXAMINATION: GENERAL: Patient is intubated is coming out of sedation is bit agitated now HEENT: Pupils are round and equally reacting to light. EOMI. No scleral icterus. No conjunctival pallor. Normocephalic, atraumatic. No pharyngeal erythema. No thyromegaly. CARDIOVASCULAR: S1 and S2 present. No murmurs, rubs, or gallops. PULMONARY: Chest is clear to auscultation, no wheezing or crackles. ABDOMEN: Soft, nontender, nondistended, normoactive bowel sounds. No palpable organomegaly. MUSCULOSKELETAL: No joint swelling or deformity. EXTREMITIES: No cyanosis, clubbing, or pedal edema. NEUROLOGICAL: Moving 4 limbs SKIN: No rashes. Results CBC & Chem 7: 02/21/20 04:28 02/21/20 04:28 Labs: Abnormal Lab Results - Last 24 Hours (Table) 02/20/20 02/20/20 02/20/20 Range/Units 19:18 19:18 19:18 WBC 17.1 H (3.8-10.6) k/uL Neutrophils # 13.5 H (1.3-7.7) k/uL ABG pCO2 (35-45) mmHg ABG pO2 (83-108) mmHg ABG HCO3 (21-25) mmol/L ABG Total CO2 (19-24) mmol/L ABG O2 Saturation (94-97) % Creatinine 0.64 L (0.66-1.25) mg/dL Glucose (74-99) mg/dL POC Glucose (mg/dL) (75-99) mg/dL Calcium 8.3 L (8.4-10.2) mg/dL Creatine Kinase 54 L (55-170) U/L Total Protein 6.2 L (6.3-8.2) g/dL Albumin (3.5-5.0) g/dL U Marijuana (THC) Screen Detected H (NotDetected) 02/20/20 02/20/20 02/20/20 Range/Units 20:55 21:04 22:52 WBC (3.8-10.6) k/uL Neutrophils # (1.3-7.7) k/uL ABG pCO2 (35-45) mmHg ABG pO2 >400 H (83-108) mmHg ABG HCO3 (21-25) mmol/L ABG Total CO2 (19-24) mmol/L ABG O2 Saturation 100.0 H (94-97) % Creatinine (0.66-1.25) mg/dL Glucose (74-99) mg/dL POC Glucose (mg/dL) 114 H (75-99) mg/dL Calcium (8.4-10.2) mg/dL Creatine Kinase 53 L (55-170) U/L Total Protein (6.3-8.2) g/dL Albumin (3.5-5.0) g/dL U Marijuana (THC) Screen (NotDetected) 02/21/20 02/21/20 02/21/20 Range/Units 04:28 04:28 07:23 WBC 12.6 H (3.8-10.6) k/uL Neutrophils # 9.0 H (1.3-7.7) k/uL ABG pCO2 47 H (35-45) mmHg ABG pO2 187 H (83-108) mmHg ABG HCO3 30 H (21-25) mmol/L ABG Total CO2 31 H (19-24) mmol/L ABG O2 Saturation 99.5 H (94-97) % Creatinine 0.61 L (0.66-1.25) mg/dL Glucose 114 H (74-99) mg/dL POC Glucose (mg/dL) (75-99) mg/dL Calcium (8.4-10.2) mg/dL Creatine Kinase (55-170) U/L Total Protein 5.9 L (6.3-8.2) g/dL Albumin 3.4 L (3.5-5.0) g/dL U Marijuana (THC) Screen (NotDetected) Microbiology - Last 24 Hours (Table) 02/20/20 20:37 Gram Stain - Preliminary Sputum Sputum Culture - Preliminary Thrombosis Risk Factor Assmnt - Choose All That Apply Any of the Below Risk Factors Present?: No Other Risk Factors: No Thrombosis Risk Factor Assessment Level: Very Low Risk Assessment and Plan Plan: Acute respiratory failure, altered mental status secondary to toxic encephalopathy and acute respiratory failure is secondary to drug overdose patient is intubated for protection of airway patient doesn't have hypoxic and hypercapnic respiratory failure. Continue weaning trial if patient is more awake and if he meets weaning parameters patient will be extubated today. Possible culprit drug is believed to be Car fentanyl Her leukocytosis improving no evidence of infection reactive in nature -Marijuana use
[2020-02-22] MEDS: IPRATROPIUM-ALBUTEROL 3 ML NEB INHALATION SCH ×7 (00:41→23:42)
[2020-02-22] MEDS: DEXTROSE 5%-0.45% NACL 1,000 ML IV SCH ×3 (02:24→20:08)
[2020-02-22] MEDS: PROPOFOL 1,000 MG in EMPTY BAG 1 BAG IV SCH ×4 (02:48→14:17)
[2020-02-22 04:48] LABS: Basophils % (A) 0 %; Eosinophils # (A) 0.1 k/uL (0-0.7); Eosinophils % (A) 1 %; HCT 47.2 % (39.0-53.0); HGB 15.9 gm/dL (13.0-17.5); Lymphocytes % (A) 14 %; MCHC 33.7 g/dL (31.0-37.0); MCV 92.1 fL (80.0-100.0); Mean Platelet Volume 7.1; Monocytes % (A) 7 %; Neutrophils # (A) 11.2 k/uL (1.3-7.7); Neutrophils % (A) 77 %; Platelet Count 230 k/uL (150-450); RBC 5.13 m/uL (4.30-5.90); RDW 12.8 % (11.5-15.5); WBC 14.5 k/uL (3.8-10.6)
[2020-02-22 05:37] LABS: ALT 13 U/L (4-49); AST 54 U/L (17-59); African American GFR (CKD) >90 (>60 ml/min/1.73 sqM); Albumin 3.6 g/dL (3.5-5.0); Alkaline Phosphatase 111 U/L (38-126); Anion Gap 6 mmol/L; Blood Urea Nitrogen 5 mg/dL (9-20); Calcium 9.3 mg/dL (8.4-10.2); Carbon Dioxide 26 mmol/L (22-30); Chloride 106 mmol/L (98-107); Glucose 118 mg/dL (74-99); Non-African American GFR(CKD) >90 (>60 ml/min/1.73 sqM); Sodium 138 mmol/L (137-145); Total Bilirubin 0.7 mg/dL (0.2-1.3); Total Protein 6.1 g/dL (6.3-8.2)
[2020-02-22 06:09] LABS: Potassium 4.7 mmol/L (3.5-5.1)
[2020-02-22 07:35] LABS: ABG Base Excess 6.1 mmol/L; ABG HCO3 30 mmol/L (21-25); ABG Oxygen Saturation 98.6 % (94-97); ABG PCO2 45 mmHg (35-45); ABG PH 7.44 (7.35-7.45); ABG PO2 194 mmHg (83-108); ABG TCO2 32 mmol/L (19-24); Allen Test Performed? Yes
[2020-02-22] MEDS: CHLORHEXIDINE GLUCONATE 15 ML CUP MUCOUS MEM SCH ×2 (08:57→20:07)
[2020-02-22] MEDS: PANTOPRAZOLE 40 MG/10 ML VIAL IV SCH (08:57)
[2020-02-22] MEDS: HALOPERIDOL LACTATE 5 MG/ML 1 ML VIAL IVP PRN ×2 (09:24→12:04)
--- NOTE | 2020-02-22 09:45 | XR ---
EXAMINATION TYPE: XR chest 1V portable DATE OF EXAM: 02/22/2020 COMPARISON: 02/21/2020 HISTORY: Ventilatory dependent respiratory failure. TECHNIQUE: Single frontal view of the chest is obtained. FINDINGS: Cephalad placement of the endotracheal tube terminating 6.8 cm from the winter. Enteric tu be courses off the distal [id number] appearing overall appropriately placed. There is no focal air space opacity, pleural effusion, or pneumothorax seen. Resolved left perihilar airspace disease. Th e cardiac silhouette size is within normal limits. The osseous structures are intact. Severe levosc oliosis of the thoracic spine. IMPRESSION: 1. Resolved left perihilar airspace disease. 2. Cephalad placement of the endotracheal tube terminating 6.8 cm from winter. This should be advance d 2 to 3 cm for optimal placement.
--- NOTE | 2020-02-22 13:01 | P.PN ---
Subjective Progress Note Date: 02/22/20 Principal diagnosis: Drug overdose This is a 20-year-old white male, unknown past medical history, patient was brought into the emergency room yesterday with reported overdose. Supposedly the patient took a large amount of alcohol and multiple muscle relaxers. Then the patient became unresponsive, and EMS was notified. Upon EMS arrival, patient received Narcan, he had no responses whatsoever. Patient was hemodynamically stable, but was unresponsive upon arrival to the ER. Upon arrival, patient was intubated, placed on mechanical ventilation. Poison control mostly recommended supportive care measures. His drug screen came back mostly negative except for positive for marijuana. His acetaminophen level was below 10 salicylates level was below 1 and his serum alcohol level was less than 10. Covid 19 PCR was negative. Chest x-ray showed no evidence of infiltrate. CT of the brain was also negative. Upon my evaluation today, patient is in the ICU, he is on mechanical ventilation. Assist control rate of 20, volume is 400 FiO2 is 40% PEEP of 5. ABG showed a pO2 of 187 pCO2 of 47 pH of 7.41. Patient again is hemodynamically stable, he is in sinus rhythm sometimes sinus tachycardia with a rate of 116. On propofol, and I have recommended stopping the propofol, addressing the patient's mental status, weaning parameters, and if possible the patient will be given a weaning trial in the next few hours. Patient was reevaluated today on 02/22/20, patient remains in the ICU, intubated and mechanically ventilated. Presently on assist control rate of 20 tidal volume is 400 FiO2 is 30% PEEP of 5. His ABG showed a pO2 of 194 pCO2 of 45 pH of 7.44. Patient is on propofol at 50 mcg/m, IV fluid D5 45 at 1 25 mL per hour. His chest x-ray showed no evidence of infiltrates. Patient was given a sedation interruption trial, however as soon as the propofol when down to a lower dose, patient became extremely agitated, restless, violent in bed, and he was about to pull out his endotracheal tube and his lines. Then I had to put him back again on propofol, he was bolused with propofol, and felt that the patient is not quite ready for weaning. When he was agitated, patient would not open his eyes, would not follow any instructions, and would not maintain any eye contact. Obviously he is not ready for weaning at this point yet. Hence I placed him back on propofol, back on his before meals mode of mechanical ventilation, and we'll start enteral feeding. May also recommended neurological evaluation on this patient. Objective - Vital Signs Vital signs: Vital Signs Temp 98.3 F 02/22/20 08:00 Pulse 82 02/22/20 11:23 Resp 20 02/22/20 11:00 BP 121/73 02/22/20 11:00 Pulse Ox 99 02/22/20 11:00 Intake & Output 02/21/20 02/22/20 02/22/20 18:59 06:59 18:59 Intake Total 2259.953 6988.730 689.113 Output Total 1165 780 505 Balance 488.338 834.730 184.113 Weight 57.9 kg 57.9 kg Intake: Intake, IV Titration 6807.474 0964.730 689.113 Amount Dextrose 5%-0.45% NaCl 1, 1625 1375 620 000 ml @ 125 mls/hr IV . Q8H [facility] Rx#:[id number] Propofol 1,000 mg In 28.338 239.730 69.113 Empty Bag 1 bag @ Titrate IV .Q0M [facility] Rx#: [id number] Output: Urine 1165 780 505 Other: Voiding Method Indwelling Catheter Indwelling Catheter Indwelling Catheter - Exam Physical Exam: Revealed a 20-year-old white male in no distress, on mechanical ventilation. Head: Atraumatic, normocephalic. Endotracheal tube and orogastric tube are intact. HEENT:[Neck is supple.] [No neck masses.] [No thyromegaly.] [No JVD.] PERRLA, EOMI, no icterus. Chest: [Clear throughout, no crackles, no rhonchi, no wheezes.] Cardiac Exam: [Normal S1 and S2, no S3 gallop, no murmur.] Abdomen: [Soft, nontender, no megaly, no rebound, no guarding, normal bowel sounds.] Extremities: [Positive clubbing, no edema, no cyanosis.] Neurological Exam: Sedated, on propofol, extreme agitation was noted, would not follow any instructions, off propofol for a very short time. Psychiatric: Could not be assessed. Skin: No rashes. - Labs CBC & Chem 7: 02/22/20 04:28 02/22/20 04:28 Labs: Abnormal Lab Results - Last 24 Hours (Table) 02/22/20 02/22/20 02/22/20 Range/Units 01:33 04:28 04:28 WBC 14.5 H (3.8-10.6) k/uL Neutrophils # 11.2 H (1.3-7.7) k/uL ABG pO2 (83-108) mmHg ABG HCO3 (21-25) mmol/L ABG Total CO2 (19-24) mmol/L ABG O2 Saturation (94-97) % Sodium 135 L (137-145) mmol/L BUN 5 L (9-20) mg/dL Creatinine 0.59 L (0.66-1.25) mg/dL Glucose 118 H (74-99) mg/dL Total Protein 6.1 L (6.3-8.2) g/dL 02/22/20 Range/Units 07:29 WBC (3.8-10.6) k/uL Neutrophils # (1.3-7.7) k/uL ABG pO2 194 H (83-108) mmHg ABG HCO3 30 H (21-25) mmol/L ABG Total CO2 32 H (19-24) mmol/L ABG O2 Saturation 98.6 H (94-97) % Sodium (137-145) mmol/L BUN (9-20) mg/dL Creatinine (0.66-1.25) mg/dL Glucose (74-99) mg/dL Total Protein (6.3-8.2) g/dL Microbiology - Last 24 Hours (Table) 02/20/20 20:37 Gram Stain - Preliminary Sputum Sputum Culture - Preliminary Assessment and Plan Assessment: Impression: Acute hypoxic respiratory failure secondary to drug overdose, Supposedly baclofen overdose.. Failure to respond to Narcan upon presentation. Digital clubbing on physical examination, exact etiology is not clear, would have to be investigated on outpatient basis. Extreme agitation off propofol, hence could not wean the patient today. And I have recommended neurological evaluation. Recommendation: Continue ventilatory support. Resume propofol, keep the patient sedated, not ready for weaning. Start enteral feeding. Neurology consultation. Continue GI and DVT prophylaxis. Supportive care measures. Consider psychiatric consultation once the patient is extubated. We'll continue to follow. Critical care time is 35 minutes Time with Patient: Greater than 30
[2020-02-22] MEDS ORDERED: BACLOFEN 10 MG TAB PO PRN (13:28)
[2020-02-22] MEDS ORDERED: MIDAZOLAM HCL 50 MG in SODIUM CHLORIDE 0.9% 40 ML IV SCH (14:00)
--- NOTE | 2020-02-22 14:30 | P.CNNES ---
History of Present Illness Consult date: 02/22/20 Reason for Consult: Drug overdose/neurotoxicity Chief complaint: Potential drug overdose withdrawal on baclofen and alcohol withdrawal History of Present Illness: This is a new neurology consult requested for further advice and recommendations for 20-year-old male who is brought in along with his friend who is also admitted in ICU intubated, for bradycardia and sedation. The patient was found down like his friend unresponsive and then became very agitated and unresponsive again. He was attended to by EMS in the field and then later had to be intubated for acute respiratory failure. He is undergoing further workup for toxic meta-toxic encephalopathy. The patient has the same risk factors involved as his friend namely drug abuse involving baclofen and alcohol and marijuana. The patient however according to his mother does take baclofen as prescription. He has a history of hydrocephalus as a child requiring a shunt. He is most likely based on this remote history a patient with cerebral palsy still requiring baclofen for spasticity. Apparently the impression is that he abuses it with his friend while they drink alcohol and uses marijuana. It is unclear if he uses other substances of abuse. On admission he had a computed tomography scan of the head that was negative. His labs were significant for persistent elevated white count with left shift. Sodium has remained low at 135. The patient continues to remain hypertensive with diastolics in the 3 digits on and off propofol. Gram stain of sputum has now come back positive for gram-positive cocci in pairs and clusters as well as rare gram-negative axillae. This patient has had no clear spontaneous eye opening on attempts to lower sedation. He also appears to be quite difficult to tolerate lowering of sedation. This raises suspicion for baclofen withdrawal. Past Medical History Past Medical History: No Reported History Additional Past Medical History / Comment(s): hydrocephalus History of Any Multi-Drug Resistant Organisms: None Reported Past Surgical History: No Surgical Hx Reported Additional Past Surgical History / Comment(s): lumbar lp shunt Past Psychological History: No Psychological Hx Reported Smoking Status: Unknown if ever smoked Past Alcohol Use History: Unable to Obtain Past Drug Use History: Marijuana Medications and Allergies Home Medications Medication Instructions Recorded Confirmed Type No Known Home Medications 02/20/20 02/20/20 History Allergies Allergy/AdvReac Type Severity Reaction Status Date / Time aripiprazole [From Abilify] Allergy Unknown Verified 02/20/20 19:47 codeine Allergy Unknown Verified 02/20/20 19:47 Physical Examination - Vital Signs Vital Signs: Vital Signs Temp Pulse Resp BP Pulse Ox 02/22/20 13:00 90 20 96/58 98 02/22/20 12:00 98.3 F 126 H 20 106/73 100 02/22/20 11:23 82 02/22/20 11:13 84 02/22/20 11:00 84 20 121/73 99 02/22/20 10:00 98 20 125/77 99 02/22/20 09:00 61 20 120/75 100 02/22/20 08:00 98.3 F 67 20 127/82 99 02/22/20 07:39 70 02/22/20 07:29 66 02/22/20 07:00 80 20 160/111 100 02/22/20 06:30 105 H 18 148/101 100 02/22/20 06:00 80 20 136/88 99 02/22/20 05:30 81 20 140/100 99 02/22/20 05:00 81 20 157/104 100 02/22/20 04:36 67 02/22/20 04:30 101 H 20 145/103 100 02/22/20 04:07 93 02/22/20 04:00 98.4 F 85 20 132/84 99 02/22/20 03:30 78 20 135/85 99 02/22/20 03:00 75 20 144/100 100 02/22/20 02:30 79 20 138/93 100 02/22/20 02:00 68 20 147/98 99 02/22/20 01:30 87 20 148/100 98 02/22/20 01:00 90 20 150/106 95 02/22/20 00:55 71 02/22/20 00:41 77 02/22/20 00:30 84 20 126/75 99 02/22/20 00:01 73 20 130/86 100 02/22/20 00:00 98.6 F 67 20 128/84 100 02/21/20 23:30 74 20 126/87 99 02/21/20 23:00 83 20 147/100 99 02/21/20 22:30 108 H 18 172/122 99 02/21/20 22:00 81 20 120/76 99 02/21/20 21:30 87 20 114/64 99 04/30/20 21:00 93 20 114/70 98 02/21/20 20:30 94 20 117/77 98 02/21/20 20:00 98.9 F 92 20 150/105 99 02/21/20 19:43 86 02/21/20 19:30 85 20 130/93 99 02/21/20 19:29 100 02/21/20 19:00 76 20 124/88 98 02/21/20 18:30 73 20 126/88 97 02/21/20 18:00 77 20 130/92 98 02/21/20 17:30 79 20 137/78 98 02/21/20 17:00 80 20 133/88 98 02/21/20 16:30 95 20 129/80 98 02/21/20 16:00 98.3 F 93 20 122/71 99 02/21/20 15:57 96 02/21/20 15:46 100 02/21/20 15:30 112 H 20 142/91 97 02/21/20 15:00 129 H 28 H 145/101 100 02/21/20 14:30 59 L 21 151/100 100 Intake and Output 02/21/20 02/22/20 02/22/20 22:59 06:59 14:59 Intake Total 903.203 6819.068 1009.113 Output Total 705 540 655 Balance 241.662 628.068 354.113 Intake: Intake, IV Titration 732.921 1942.068 939.113 Amount Dextrose 5%-0.45% NaCl 1, 875 1000 870 000 ml @ 125 mls/hr IV . Q8H [facility] Rx#:[id number] Propofol 1,000 mg In 71.662 168.068 69.113 Empty Bag 1 bag @ Titrate IV .Q0M [facility] Rx#: [id number] Tube Feeding 40 Other 30 Output: Urine 705 540 655 Other: Voiding Method Indwelling Catheter Indwelling Catheter Indwelling Catheter Weight 57.9 kg 57.9 kg The exam performed was with the patient intubated. Propofol was lowered. The pump pocket only be lowered briefly as the patient's blood pressure increased to 104/108 with tachypnea. Gen. exam: Small frail frame for the patient's stated age. HEENT: Clear sclera. Mucous membranes moist. Neck appears supple. Pulses radial pedal pulses are equal and symmetric. Skin: Multiple tattoos no rash bruising or petechia noted. No needle oropeza. Extremities: Clubbing of the digits noted. Slight dysmorphic features noted in the chest with past cavum and small feet out of proportion for his body habitus. Neurological exam Mental status: Off sedation there was no spontaneous eye opening. Pupils: 3 mm sluggishly reactive to light. Cranial nerves: Roving eye movements no nystagmus noted. There is a slight notable left gaze deviation. Face appears symmetric. Cough/gag reflex is intact. Motor examination increased tone noted bilaterally in the hands on sedation and off sedation. Consistent with spasticity. Increased tone noted also in the lower extremities equally. Off sedation there was minimal movement spontaneously. No fasciculations or tremor noted. Next Deep tendon reflexes are absent throughout. No ankle clonus elicited. No response elicited from plantar stimulation. Results - Laboratory Findings CBC and BMP: 02/22/20 04:28 02/22/20 04:28 Abnormal Lab Findings: Abnormal Labs 02/20/20 02/20/20 02/20/20 19:18 19:18 19:18 WBC 17.1 H Neutrophils # 13.5 H ABG pCO2 ABG pO2 ABG HCO3 ABG Total CO2 ABG O2 Saturation Sodium BUN Creatinine 0.64 L Glucose POC Glucose (mg/dL) Calcium 8.3 L Creatine Kinase 54 L Total Protein 6.2 L Albumin U Marijuana (THC) Screen Detected H 02/20/20 02/20/20 02/20/20 20:55 21:04 22:52 WBC Neutrophils # ABG pCO2 ABG pO2 >400 H ABG HCO3 ABG Total CO2 ABG O2 Saturation 100.0 H Sodium BUN Creatinine Glucose POC Glucose (mg/dL) 114 H Calcium Creatine Kinase 53 L Total Protein Albumin U Marijuana (THC) Screen 02/21/20 02/21/20 02/21/20 04:28 04:28 07:23 WBC 12.6 H Neutrophils # 9.0 H ABG pCO2 47 H ABG pO2 187 H ABG HCO3 30 H ABG Total CO2 31 H ABG O2 Saturation 99.5 H Sodium BUN Creatinine 0.61 L Glucose 114 H POC Glucose (mg/dL) Calcium Creatine Kinase Total Protein 5.9 L Albumin 3.4 L U Marijuana (THC) Screen 02/22/20 02/22/20 02/22/20 01:33 04:28 04:28 WBC 14.5 H Neutrophils # 11.2 H ABG pCO2 ABG pO2 ABG HCO3 ABG Total CO2 ABG O2 Saturation Sodium 135 L BUN 5 L Creatinine 0.59 L Glucose 118 H POC Glucose (mg/dL) Calcium Creatine Kinase Total Protein 6.1 L Albumin U Marijuana (THC) Screen 02/22/20 07:29 WBC Neutrophils # ABG pCO2 ABG pO2 194 H ABG HCO3 30 H ABG Total CO2 32 H ABG O2 Saturation 98.6 H Sodium BUN Creatinine Glucose POC Glucose (mg/dL) Calcium Creatine Kinase Total Protein Albumin U Marijuana (THC) Screen - Diagnostic Findings EKG: report reviewed Chest x-ray: report reviewed (CT of the head reviewed.) Assessment and Plan Assessment: 20-year-old white male brought in with his friend and similar condition of acute respiratory failure requiring's immediate ventilation and now difficulty with lowering sedation due to increased agitation. The patient has a history per his mother of being on baclofen. I suspect this patient with his history of hydrocephalus and shunt as a child has mild cerebral palsy requiring him to be on baclofen. Nevertheless he presented in acute respiratory report failure and now extreme difficulty weaning. This case was also discussed with poison control. I agree with. Their assessment of the increased risk for not only baclofen toxicity but now baclofen withdrawal. Due to the prolonged half-life of baclofen patients can be on a ventilator for up to 7-10 days and her clinical presentation can appear as an anoxic brain injury. This important to restart baclofen at 10 mg every 8 scheduled then titrate accordingly until the patient can be safely weaned off the ventilator without severe agitation and respiratory distress. In addition since this patient has a history of abuse with alcohol even though alcohol negative on screen, there could be an increased likelihood of alcohol withdrawal during this admission. Therefore recommendations would be to switch from propofol to Versed for sedation for benzo for detection. Once the patient is extubated and more stable C1 protocol could be implemented. Due to this patient's early neurological condition as a child he would be more susceptible for seizure risks in this setting. Would recommend an EEG and if abnormal would consider starting this patient on Keppra 500 mg every 12 Summary 1. Acute respiratory failure secondary to drug overdose with baclofen and possibly synthetic drugs. 2. Childhood history of hydrocephalus and spasticity. Legally on prescription for baclofen. 3. Autonomic instability/acute respiratory failure/toxic encephalopathy 4. Inability to wean and lower sedation at this time without extreme agitation and autonomic instability Plan: Recommendations: 1. Begin baclofen 10 mg via NG tube every 8 hours scheduled. Titrate based on persistent agitation when trying to wean and lower sedation. Would titrate slowly only at 5 mg Dilia. 2. Would recommend transitioning off of propofol onto Versed drip for sedation. The this benzodiazepine would get better protection for potential alcohol withdrawal. Once the patient is more stable CIWA protocol could be implemented. 3. Labs: CK and prolactin level area 4. EEG today. If abnormal will start Keppra 500 mg every 12. Due to this patient's history of neurological problems as a child and currently with evidence of cerebral palsy this patient would be at a higher risk for seizures in the setting. Thank you for this consult. Neurology will be covering this weekend for Dr. Mendoza. On Tuesday Dr. Mendoza will take over the case. If there any questions over the weekend I can be reached either be a perfect serve or on my mobile at [phone] This patient's prognosis remains very guarded. Would anticipate this patient may have a very prolonged course on the ventilator if indeed he is undergoing baclofen withdrawal. Amaris Mendoza MD Board Certified in neurology and Sleep Medicine
--- NOTE | 2020-02-22 14:49 | P.PN ---
Subjective Progress Note Date: 02/22/20 Principal diagnosis: Patient is admitted with the possible and reported overdose exact overdose medication is unknown urine drug screen was only positive for tetrahydrocannabinol, because of unresponsiveness patient was intubated for protection of airway. The friend who brought into ER later found unresponsive as well with the similar urine drug screen was subsequently intubated as well. Patient is mildly bradycardic at this time patient is on sedation with baseline settings patient is undergoing weaning trial once he is more awake after sedation vacation plan is to extubate him today. Chest x-ray from today is better than yesterday without any infiltrate no fever 02/22/2020 Patient is seen and evaluated in follow-up and remains in the ICU intubated and on mechanical vent. Weaning was attempted today although patient became extremely agitated and restless and unable to follow any commands and was reinitiated on propofol. Neurology consulted and pending at this time. Per ER notes it was suggested of possible overdose baclofen ingestion per family although unwitnessed. Testing was sent out for baclofen level although this is a send out will await report. Patient to remain sedated at this time. This morning's chest x-ray shows resolved left periHilar airspace disease. Endotracheal tube noted. Objective - Vital Signs Vital signs: Vital Signs Temp 98.3 F 02/22/20 08:00 Pulse 82 02/22/20 11:23 Resp 20 02/22/20 11:00 BP 121/73 02/22/20 11:00 Pulse Ox 99 02/22/20 11:00 Intake & Output 02/21/20 02/22/20 02/22/20 18:59 06:59 18:59 Intake Total 1517.968 3557.730 689.113 Output Total 1165 780 505 Balance 488.338 834.730 184.113 Weight 57.9 kg 57.9 kg Intake: Intake, IV Titration 5186.533 3208.730 689.113 Amount Dextrose 5%-0.45% NaCl 1, 1625 1375 620 000 ml @ 125 mls/hr IV . Q8H [facility] Rx#:[id number] Propofol 1,000 mg In 28.338 239.730 69.113 Empty Bag 1 bag @ Titrate IV .Q0M [facility] Rx#: [id number] Output: Urine 1165 780 505 Other: Voiding Method Indwelling Catheter Indwelling Catheter Indwelling Catheter - Exam GENERAL: 20-year-old male intubated and remains sedated on propofol with previous attempt at weaning although experienced extreme agitation and restlessness with inability to follow commands. HEENT: Pupils are round and equally reacting to light. EOMI. No scleral icterus. No conjunctival pallor. Normocephalic, atraumatic. No pharyngeal erythema. No thyromegaly. CARDIOVASCULAR: S1 and S2 present. No murmurs, rubs, or gallops. PULMONARY: Chest is clear to auscultation, no wheezing or crackles. ABDOMEN: Soft, nondistended, normoactive bowel sounds. No palpable organomegaly. MUSCULOSKELETAL: No joint swelling or deformity. EXTREMITIES: No cyanosis, or pedal edema. NEUROLOGICAL: Intubated and sedated SKIN: No rashes. - Labs CBC & Chem 7: 02/22/20 04:28 02/22/20 04:28 Labs: Abnormal Lab Results - Last 24 Hours (Table) 02/22/20 02/22/20 02/22/20 Range/Units 01:33 04:28 04:28 WBC 14.5 H (3.8-10.6) k/uL Neutrophils # 11.2 H (1.3-7.7) k/uL ABG pO2 (83-108) mmHg ABG HCO3 (21-25) mmol/L ABG Total CO2 (19-24) mmol/L ABG O2 Saturation (94-97) % Sodium 135 L (137-145) mmol/L BUN 5 L (9-20) mg/dL Creatinine 0.59 L (0.66-1.25) mg/dL Glucose 118 H (74-99) mg/dL Total Protein 6.1 L (6.3-8.2) g/dL 02/22/20 Range/Units 07:29 WBC (3.8-10.6) k/uL Neutrophils # (1.3-7.7) k/uL ABG pO2 194 H (83-108) mmHg ABG HCO3 30 H (21-25) mmol/L ABG Total CO2 32 H (19-24) mmol/L ABG O2 Saturation 98.6 H (94-97) % Sodium (137-145) mmol/L BUN (9-20) mg/dL Creatinine (0.66-1.25) mg/dL Glucose (74-99) mg/dL Total Protein (6.3-8.2) g/dL Microbiology - Last 24 Hours (Table) 02/20/20 20:37 Gram Stain - Preliminary Sputum Sputum Culture - Preliminary Assessment and Plan Assessment: -Acute respiratory failure, altered mental status secondary to toxic encephalopathy and acute respiratory failure is secondary to drug overdose patient is intubated for protection of airway patient doesn't have hypoxic and hypercapnic respiratory failure. Possible culprit drug is baclofen. Pending additional drug screen report that was a send out today. -Mild leukocytosis; no evidence of infection, most likely reactive in nature -Marijuana use Plan: Continue with close monitoring in the ICU as patient is intubated and on mechani sherie vent. No further attempts at weaning today as this morning's attempt was with display of increased agitation and attempts at pulling out endotracheal tube. Intensive is following closely. Neurology consulted and pending at this time. Will await toxicology report as it was a send out today. Possible overdose drug culprit is baclofen. Further recommendations to follow.
[2020-02-22 15:13] LABS: Comprehensive Drug Screen Ur SeeBelow; Creatinine, Random Urine 127 mg/dL
[2020-02-22] MEDS: MIDAZOLAM HCL 200 MG in SODIUM CHLORIDE 0.9% 60 ML IV SCH (17:16)
--- NOTE | 2020-02-22 19:51 | OP ---
OPERATIVE REPORT OPERATIVE PROCEDURE: Placement of a right femoral triple-lumen catheter. PREOPERATIVE DIAGNOSIS: Acute respiratory failure secondary to drug overdose. POSTOPERATIVE DIAGNOSIS: Acute respiratory failure secondary to drug overdose. ANESTHESIA USED: 2 mL of 1% lidocaine. PROCEDURE DESCRIPTION: The patient was placed in a supine position. The right groin was prepared in a sterile fashion and drapes were applied. The right groin was locally anesthetized with lidocaine. Then the right femoral vein was easily cannulated, a guidewire was placed, and a triple-lumen catheter was inserted over the guidewire. The guidewire was removed. Good blood flow was noted in the 3 different ports of the triple-lumen catheter. The procedure was well tolerated. No evidence of any immediate complications. Line was secured using 3.0 silk sutures. MMODL / IJN: [id number] /
--- NOTE | 2020-02-22 19:53 | OP ---
OPERATIVE REPORT OPERATIVE PROCEDURE: Placement of a right femoral arterial line. PREOPERATIVE DIAGNOSIS: Respiratory failure secondary to drug overdose. POSTOPERATIVE DIAGNOSIS: Respiratory failure secondary to drug overdose. ANESTHESIA USED: None deployed. PROCEDURE DESCRIPTION: The right groin was prepared in a sterile fashion and drapes were applied. The right femoral artery was palpated, easily cannulated, and a guidewire was placed. A Cook's femoral arterial line was placed over the guidewire, and the guidewire was removed. Good blood flow and good waveform were noted in the line, and there was no evidence of any immediate complication. Line was secured using 3.0 silk sutures. MMODL / IJN: [id number] /
[2020-02-22] MEDS: QUEtiapine 50 MG TAB PO SCH (20:08)
--- NOTE | 2020-02-22 22:34 | EEG ---
ELECTROENCEPHALOGRAM REPORT DATE OF SERVICE: 02/22/2020. HISTORY: This is an inpatient EEG performed on a 20-year-old gentleman in the ICU who was brought in after being found down and unresponsive, requiring intubation in the field. The history is significant for substance abuse with baclofen, alcohol and marijuana. The patient's drug screen was only positive for marijuana. There is presumed initially toxicity followed by baclofen withdrawal. Current medications are baclofen and Keppra. Sedation was turned off midway into this study in order to avoid excessive agitation. TECHNICAL REPORT: This is an inpatient EEG performed on the Nanoference EEG monitor with electrodes placed according to the international 10-20 system and a single EKG channel. Simultaneous video EEG monitoring was performed. This EEG was reviewed in both longitudinal bipolar common average referential and transverse montages. Photic stimulation was performed. The recording begins with severe generalized slowing and suppression of the background. Theta frequencies primarily 5-6 Hz are prominent throughout the study over the midline vertex. At 17:00:01 a single sharp wave is noted over the right frontal head region. Throughout the study, there are periods of severe suppression consistent with electrode decremental response lasting between 1 and 3 seconds. At 17:07:08 sedation was turned off for 5 minutes. The background was still extremely suppressed. 17:09:47: Semi-rhythmic bifrontal sharp wave activities were seen over a one- second duration. When reviewed in the referential montage, maximum negativity occurred over the right frontal parietal head region. At 17:13:30 there was questionable arrhythmia versus EKG artifact. Throughout this entire recording, there is severe suppression in the posterior head region. Photic stimulation was performed at various flash frequencies and did not elicit any driving response or any significant change in the suppression of the background. IMPRESSION: This EEG does not contain a normal wake sleep or drowsy architecture. This EEG is consistent with generalized encephalopathy seen in diffuse cerebral dysfunction. This EEG did contain two episodes of epileptiform activity which appear lateralized to the right frontal polar head region. No abnormalities were noted in photic. There was a questionable abnormality noted in the EKG either as atrial fibrillation versus artifact. CLINICAL CORRELATION: This EEG is consistent with generalized diffuse cerebral dysfunction as seen in encephalopathic states. This EEG also suggests this patient has an increased risk for seizures with lateralized epileptiform activity over the right frontal parietal head region. RECOMMENDATIONS: Neuro imaging studies are recommended to rule out possible underlying structural mass lesion due to the epileptiform discharges that were noted over the right frontal parietal head region. Serial EEGs are recommended and/or if clinically indicated, a more prolonged overnight study would be important. A verbal report of this EEG was given to the nurse, notifying her of increased risk for seizure activity and need to begin medications. MMODL / IJN: [id number] / MTDD
[2020-02-23 04:50] LABS: Basophils % (A) 0 %; Eosinophils # (A) 0.1 k/uL (0-0.7); Eosinophils % (A) 1 %; HCT 40.1 % (39.0-53.0); HGB 13.2 gm/dL (13.0-17.5); Lymphocytes # (A) 1.9 k/uL (1.0-4.8); Lymphocytes % (A) 20 %; MCH 31.2 pg (25.0-35.0); MCV 94.6 fL (80.0-100.0); Mean Platelet Volume 7.1; Monocytes # (A) 0.9 k/uL (0-1.0); Monocytes % (A) 9 %; Neutrophils # (A) 6.4 k/uL (1.3-7.7); Neutrophils % (A) 68 %; Platelet Count 197 k/uL (150-450); RBC 4.23 m/uL (4.30-5.90); RDW 12.8 % (11.5-15.5); WBC 9.5 k/uL (3.8-10.6)
[2020-02-23] MEDS: IPRATROPIUM-ALBUTEROL 3 ML NEB INHALATION SCH ×6 (05:25→23:44)
[2020-02-23 05:26] LABS: ALT 9 U/L (4-49); AST 13 U/L (17-59); African American GFR (CKD) >90 (>60 ml/min/1.73 sqM); Albumin 2.8 g/dL (3.5-5.0); Alkaline Phosphatase 57 U/L (38-126); Anion Gap 4 mmol/L; Blood Urea Nitrogen 6 mg/dL (9-20); Calcium 8.5 mg/dL (8.4-10.2); Carbon Dioxide 28 mmol/L (22-30); Chloride 105 mmol/L (98-107); Glucose 102 mg/dL (74-99); Non-African American GFR(CKD) >90 (>60 ml/min/1.73 sqM); Potassium 3.8 mmol/L (3.5-5.1); Sodium 137 mmol/L (137-145); Total Bilirubin 0.4 mg/dL (0.2-1.3); Total Protein 5.3 g/dL (6.3-8.2)
[2020-02-23 05:54] LABS: Glucose,Whole Blood 138 mg/dL (75-99)
--- NOTE | 2020-02-23 06:38 | XR ---
EXAMINATION TYPE: XR chest 1V portable DATE OF EXAM: 02/23/2020 HISTORY: Tube placement. REFERENCE: Previous study dated 02/22/2020. FINDINGS: The patient's ET tube and NG tube remain in place, unchanged in appearance. The lungs appear clear. Pleural space are clear. Heart there is a moderate levoscoliosis IMPRESSION: NO ACUTE INTRATHORACIC ABNORMALITY.
[2020-02-23] MEDS: DEXTROSE 5%-0.45% NACL 1,000 ML IV SCH ×3 (06:55→19:53)
[2020-02-23] MEDS: MIDAZOLAM HCL 200 MG in SODIUM CHLORIDE 0.9% 60 ML IV SCH ×2 (06:58→18:07)
[2020-02-23 07:56] LABS: ABG HCO3 28 mmol/L (21-25); ABG Oxygen Saturation 98.7 % (94-97); ABG PCO2 43 mmHg (35-45); ABG PH 7.43 (7.35-7.45); ABG PO2 121 mmHg (83-108); ABG TCO2 30 mmol/L (19-24)
[2020-02-23 07:57] LABS: Allen Test Performed? no
[2020-02-23] MEDS: CHLORHEXIDINE GLUCONATE 15 ML CUP MUCOUS MEM SCH ×2 (08:16→19:51)
[2020-02-23] MEDS: PANTOPRAZOLE 40 MG/10 ML VIAL IV SCH (08:16)
[2020-02-23] MEDS: HALOPERIDOL LACTATE 5 MG/ML 1 ML VIAL IVP PRN (09:49)
[2020-02-23] MEDS: LORazepam 2 MG/ML INJ IV PRN (10:00)
[2020-02-23] MEDS: PROPOFOL 1,000 MG in EMPTY BAG 1 BAG IV SCH ×2 (10:39→14:30)
[2020-02-23] MEDS: METOPROLOL TARTRATE 25 MG TAB PO SCH ×2 (12:50→19:51)
[2020-02-23 13:32] LABS: Glucose,Whole Blood 98 mg/dL (75-99)
--- NOTE | 2020-02-23 13:38 | P.PN ---
Subjective Progress Note Date: 02/23/20 Principal diagnosis: Drug overdose This is a 20-year-old white male, unknown past medical history, patient was brought into the emergency room yesterday with reported overdose. Supposedly the patient took a large amount of alcohol and multiple muscle relaxers. Then the patient became unresponsive, and EMS was notified. Upon EMS arrival, patient received Narcan, he had no responses whatsoever. Patient was hemodynamically stable, but was unresponsive upon arrival to the ER. Upon arrival, patient was intubated, placed on mechanical ventilation. Poison control mostly recommended supportive care measures. His drug screen came back mostly negative except for positive for marijuana. His acetaminophen level was below 10 salicylates level was below 1 and his serum alcohol level was less than 10. Covid 19 PCR was negative. Chest x-ray showed no evidence of infiltrate. CT of the brain was also negative. Upon my evaluation today, patient is in the ICU, he is on mechanical ventilation. Assist control rate of 20, volume is 400 FiO2 is 40% PEEP of 5. ABG showed a pO2 of 187 pCO2 of 47 pH of 7.41. Patient again is hemodynamically stable, he is in sinus rhythm sometimes sinus tachycardia with a rate of 116. On propofol, and I have recommended stopping the propofol, addressing the patient's mental status, weaning parameters, and if possible the patient will be given a weaning trial in the next few hours. Patient was reevaluated today on 02/22/20, patient remains in the ICU, intubated and mechanically ventilated. Presently on assist control rate of 20 tidal volume is 400 FiO2 is 30% PEEP of 5. His ABG showed a pO2 of 194 pCO2 of 45 pH of 7.44. Patient is on propofol at 50 mcg/m, IV fluid D5 45 at 1 25 mL per hour. His chest x-ray showed no evidence of infiltrates. Patient was given a sedation interruption trial, however as soon as the propofol when down to a lower dose, patient became extremely agitated, restless, violent in bed, and he was about to pull out his endotracheal tube and his lines. Then I had to put him back again on propofol, he was bolused with propofol, and felt that the patient is not quite ready for weaning. When he was agitated, patient would not open his eyes, would not follow any instructions, and would not maintain any eye contact. Obviously he is not ready for weaning at this point yet. Hence I placed him back on propofol, back on his before meals mode of mechanical ventilation, and we'll start enteral feeding. May also recommended neurological evaluation on this patient. Reevaluated today on 02/23/20, patient remains in the ICU, intubated, mechanically ventilated. EEG showed evidence of diffuse cerebral dysfunction. Patient remains on assist control mode of mechanical ventilation, tidal volume is 400 FiO2 is 30%, assist control rate of 20 PEEP of 5. ABG showed a pO2 of 121 pCO2 of 43 pH of 7.43. Chest x-ray remains clear, no evidence of infiltrate. Patient continues to have episodes of extreme agitation to the point of practically sitting in bed, thrashing restless, and biting on the endotracheal tube. Could not get the patient in the last 24 hours to open his eyes, maintain any eye contact, or follow any simple instructions. Considering the extreme agitation, patient was placed on Versed which I have increased to 20 mg per hour, and I recommended propofol to be restarted and go as high as 50 mcg/kg/m. Patient remains tachycardic, rate is in the 130-140, and I recommended small d ose of beta nereyda/Lopressor. 25 mg twice a day. I have also recommended that the patient to receive Ativan as needed for extreme agitation. The last resort would be to start the patient on Nimbex. However I will try to avoid paralytics as much as possible. Objective - Vital Signs Vital signs: Vital Signs Temp 100.6 F H 02/23/20 12:00 Pulse 141 H 02/23/20 13:00 Resp 20 02/23/20 13:00 BP 115/66 02/23/20 13:00 Pulse Ox 97 02/23/20 13:00 Intake & Output 02/22/20 02/23/20 02/23/20 18:59 06:59 18:59 Intake Total 1462.227 0398.06 172.758 Output Total 1145 870 50 Balance 736.725 999.06 122.758 Weight 57.9 kg Intake: Intake, IV Titration 9580.605 9093.06 143.758 Amount Dextrose 5%-0.45% NaCl 1, 1495 1500 125 000 ml @ 125 mls/hr IV . Q8H [facility] Rx#:[id number] Midazolam HCl 200 mg In 68.5 18.758 Sodium Chloride 0.9% 60 ml @ 10 MG/HR 5 mls/hr IV .Q20H [facility] Rx#:[id number] Midazolam HCl 50 mg In 1.667 Sodium Chloride 0.9% 40 ml @ 1 MG/HR 1 mls/hr IV .Q24H [facility] Rx#:[id number] Propofol 1,000 mg In 185.058 33.56 Empty Bag 1 bag @ Titrate IV .Q0M [facility] Rx#: [id number] Tube Feeding 140 267 29 Other 60 Output: Urine 1145 870 50 Other: Voiding Method Indwelling Catheter Indwelling Catheter ABP, PAP, CO, CI - Last Documented Arterial Blood Pressure 129/73 - Exam Physical Exam: Revealed a 20-year-old white male in no distress, on mechanical ventilation. Head: Atraumatic, normocephalic. Endotracheal tube and orogastric tube are intact. HEENT:[Neck is supple.] [No neck masses.] [No thyromegaly.] [No JVD.] PERRLA, EOMI, no icterus. Chest: [Clear throughout, no crackles, no rhonchi, no wheezes.] Cardiac Exam: Tachycardic, sinus tachycardia. [Normal S1 and S2, no S3 gallop, no murmur.] Abdomen: [Soft, nontender, no megaly, no rebound, no guarding, normal bowel sounds.] Extremities: [Positive clubbing, no edema, no cyanosis.] Neurological Exam: Sedated, with propofol and Versed. Psychiatric: Could not be assessed. Skin: No rashes. - Labs CBC & Chem 7: 02/23/20 04:30 02/23/20 04:30 Labs: Abnormal Lab Results - Last 24 Hours (Table) 02/22/20 02/23/20 02/23/20 Range/Units 13:50 04:30 04:30 RBC 4.23 L (4.30-5.90) m/uL ABG pO2 (83-108) mmHg ABG HCO3 (21-25) mmol/L ABG Total CO2 (19-24) mmol/L ABG O2 Saturation (94-97) % BUN 6 L (9-20) mg/dL Creatinine 0.62 L (0.66-1.25) mg/dL Glucose 102 H (74-99) mg/dL POC Glucose (mg/dL) (75-99) mg/dL AST 13 L (17-59) U/L C-Reactive Protein 17.0 H (<10.0) mg/L Total Protein 5.3 L (6.3-8.2) g/dL Albumin 2.8 L (3.5-5.0) g/dL 02/23/20 02/23/20 Range/Units 05:52 07:52 RBC (4.30-5.90) m/uL ABG pO2 121 H (83-108) mmHg ABG HCO3 28 H (21-25) mmol/L ABG Total CO2 30 H (19-24) mmol/L ABG O2 Saturation 98.7 H (94-97) % BUN (9-20) mg/dL Creatinine (0.66-1.25) mg/dL Glucose (74-99) mg/dL POC Glucose (mg/dL) 138 H (75-99) mg/dL AST (17-59) U/L C-Reactive Protein (<10.0) mg/L Total Protein (6.3-8.2) g/dL Albumin (3.5-5.0) g/dL Microbiology - Last 24 Hours (Table) 02/20/20 20:37 Gram Stain - Final Sputum Sputum Culture - Final Assessment and Plan Assessment: Impression: Acute hypoxic respiratory failure secondary to drug overdose, Supposedly baclofen overdose.. Failure to respond to Narcan upon presentation. Digital clubbing on physical examination, exact etiology is not clear, would have to be investigated on outpatient basis. Extreme agitation requiring significant amount of propofol and Versed for sedation, may consider adding fentanyl. Try to avoid paralytic agents. Possible baclofen withdrawal. Recommendation: Continue ventilatory support. Continue propofol and Versed. Continue enteral feeding Continue GI and DVT prophylaxis. Supportive care measures. We'll continue to follow. Critical care time is 32 minutes Time with Patient: Greater than 30
--- NOTE | 2020-02-23 15:31 | P.PN ---
Subjective Patient is admitted with the possible and reported overdose exact overdose medication is unknown urine drug screen was only positive for tetrahydroc annabinol, because of unresponsiveness patient was intubated for protection of airway. The friend who brought into ER later found unresponsive as well with the similar urine drug screen was subsequently intubated as well. Patient is mildly bradycardic at this time patient is on sedation with baseline settings patient is undergoing weaning trial once he is more awake after sedation vacation plan is to extubate him today. Chest x-ray from today is better than yesterday without any infiltrate no fever 02/22/2020 Patient is seen and evaluated in follow-up and remains in the ICU intubated and on mechanical vent. Weaning was attempted today although patient became extremely agitated and restless and unable to follow any commands and was reinitiated on propofol. Neurology consulted and pending at this time. Per ER notes it was suggested of possible overdose baclofen ingestion per family although unwitnessed. Testing was sent out for baclofen level although this is a send out will await report. Patient to remain sedated at this time. This morning's chest x-ray shows resolved left periHilar airspace disease. 02/23/2020 As for toxicology patient appears to have overdosed on baclofen which he sharing with his friend who was also intubated at this time. Neurology evaluated the patient patient again remains on high sedation EEG showed epileptiform focus patient does have history of cerebral palsy and has been using baclofen for spasticity patient was started back on baclofen is of concern of baclofen withdrawal and patient aspirin neurology will benefit from continuous EEG monitoring. Patient was started on antiseizure medications. Patient has autonomic instability patient appears to have overdosed on baclofen alcohol and marijuana may be synthetic marijuana. Patient is presently on Versed. A she is also antipsychotic which was resumed. Patient remains on ventilator support with PEEP of 5 episode of 30% and volume of 400 set up respiratory rate of 20 bleeding or the ventilator. Patient was having episodes of agitation patient is occasionally tachycardic was started on beta nereyda. Review of systems: Unable to obtain due to his clinical condition All inpatient medications were reviewed and appropriate changes in these medications as dictated in the interval history and assessment and plan. Objective - Vital Signs Vital signs: Vital Signs Temp 100.6 F H 02/23/20 12:00 Pulse 107 H 02/23/20 15:00 Resp 20 05/02/20 15:00 BP 118/64 02/23/20 15:00 Pulse Ox 100 02/23/20 15:00 Intake & Output 02/22/20 02/23/20 02/23/20 18:59 06:59 18:59 Intake Total 6914.310 5995.06 797.758 Output Total 1145 870 955 Balance 736.725 999.06 -157.242 Weight 57.9 kg Intake: Intake, IV Titration 3864.577 8723.06 768.758 Amount Dextrose 5%-0.45% NaCl 1, 1495 1500 750 000 ml @ 125 mls/hr IV . Q8H [facility] Rx#:[id number] Midazolam HCl 200 mg In 68.5 18.758 Sodium Chloride 0.9% 60 ml @ 10 MG/HR 5 mls/hr IV .Q20H [facility] Rx#:[id number] Midazolam HCl 50 mg In 1.667 Sodium Chloride 0.9% 40 ml @ 1 MG/HR 1 mls/hr IV .Q24H [facility] Rx#:[id number] Propofol 1,000 mg In 185.058 33.56 Empty Bag 1 bag @ Titrate IV .Q0M [facility] Rx#: [id number] Tube Feeding 140 267 29 Other 60 Output: Urine 1145 870 955 Other: Voiding Method Indwelling Catheter Indwelling Catheter ABP, PAP, CO, CI - Last Documented Arterial Blood Pressure 121/68 - Exam GENERAL: 20-year-old male intubated and remains sedated on propofol with p revious attempt at weaning although experienced extreme agitation and restlessness with inability to follow commands. HEENT: Pupils are round and equally reacting to light. EOMI. No scleral icterus. No conjunctival pallor. Normocephalic, atraumatic. No pharyngeal erythema. No thyromegaly. CARDIOVASCULAR: S1 and S2 present. No murmurs, rubs, or gallops. PULMONARY: Chest is clear to auscultation, no wheezing or crackles. ABDOMEN: Soft, nondistended, normoactive bowel sounds. No palpable organomegaly. MUSCULOSKELETAL: No joint swelling or deformity. EXTREMITIES: No cyanosis, or pedal edema. NEUROLOGICAL: Intubated and sedated SKIN: No rashes. - Labs CBC & Chem 7: 02/23/20 04:30 02/23/20 04:30 Labs: Abnormal Lab Results - Last 24 Hours (Table) 02/22/20 02/23/20 02/23/20 Range/Units 13:50 04:30 04:30 RBC 4.23 L (4.30-5.90) m/uL ABG pO2 (83-108) mmHg ABG HCO3 (21-25) mmol/L ABG Total CO2 (19-24) mmol/L ABG O2 Saturation (94-97) % BUN 6 L (9-20) mg/dL Creatinine 0.62 L (0.66-1.25) mg/dL Glucose 102 H (74-99) mg/dL POC Glucose (mg/dL) (75-99) mg/dL AST 13 L (17-59) U/L C-Reactive Protein 17.0 H (<10.0) mg/L Total Protein 5.3 L (6.3-8.2) g/dL Albumin 2.8 L (3.5-5.0) g/dL 02/23/20 02/23/20 Range/Units 05:52 07:52 RBC (4.30-5.90) m/uL ABG pO2 121 H (83-108) mmHg ABG HCO3 28 H (21-25) mmol/L ABG Total CO2 30 H (19-24) mmol/L ABG O2 Saturation 98.7 H (94-97) % BUN (9-20) mg/dL Creatinine (0.66-1.25) mg/dL Glucose (74-99) mg/dL POC Glucose (mg/dL) 138 H (75-99) mg/dL AST (17-59) U/L C-Reactive Protein (<10.0) mg/L Total Protein (6.3-8.2) g/dL Albumin (3.5-5.0) g/dL Microbiology - Last 24 Hours (Table) 02/20/20 20:37 Gram Stain - Final Sputum Sputum Culture - Final Assessment and Plan Plan: -Acute hypoxic respiratory failure, altered mental status secondary to toxic encephalopathy and acute respiratory failure is secondary to drug overdose patient is intubated for protection of airway. Possibility of baclofen overdose patient appears to have been undergoing baclofen withdrawals at this time. Patient has extreme agitation. Patient was started back on baclofen as recommended by toxicology. Patient is requiring high amounts of sedation, presently possible withdrawal from baclofen -Epileptiform activity on the EEG patient was started on antiseizure medications patient does have history of cerebral palsy for which patient is on baclofen for rigidity. -History of cerebral palsy -Alcohol abuse and marijuana overdose -Mild leukocytosis; no evidence of infection, most likely reactive in nature
[2020-02-23] MEDS ORDERED: ACETAMINOPHEN IV (For NPO) 1,000 MG in EMPTY BAG 1 BAG IVPB PRN (16:29)
[2020-02-23 17:52] LABS: Glucose,Whole Blood 115 mg/dL (75-99)
[2020-02-23] MEDS: BACLOFEN 10 MG TAB PO SCH (19:51)
[2020-02-23] MEDS: QUEtiapine 50 MG TAB PO SCH (19:51)
[2020-02-23] MEDS: levETIRAcetam IV 500 MG in SODIUM CHLORIDE 0.9% 100 ML IVPB SCH (19:52)
[2020-02-23 23:48] LABS: Glucose,Whole Blood 100 mg/dL (75-99)
[2020-02-24] MEDS: IPRATROPIUM-ALBUTEROL 3 ML NEB INHALATION SCH ×6 (03:02→23:49)
[2020-02-24] MEDS: DEXTROSE 5%-0.45% NACL 1,000 ML IV SCH ×3 (03:25→18:42)
[2020-02-24] MEDS: MIDAZOLAM HCL 200 MG in SODIUM CHLORIDE 0.9% 60 ML IV SCH (03:26)
[2020-02-24 04:46] LABS: Basophils # (A) 0.1 k/uL (0-0.2); Basophils % (A) 0 %; Eosinophils # (A) 0.2 k/uL (0-0.7); Eosinophils % (A) 1 %; HCT 39.3 % (39.0-53.0); HGB 12.3 gm/dL (13.0-17.5); Lymphocytes # (A) 1.3 k/uL (1.0-4.8); Lymphocytes % (A) 9 %; MCH 30.1 pg (25.0-35.0); MCHC 31.4 g/dL (31.0-37.0); MCV 95.9 fL (80.0-100.0); Mean Platelet Volume 7.5; Monocytes # (A) 1.2 k/uL (0-1.0); Monocytes % (A) 9 %; Neutrophils # (A) 11.3 k/uL (1.3-7.7); Neutrophils % (A) 80 %; Platelet Count 193 k/uL (150-450); RDW 12.7 % (11.5-15.5); WBC 14.2 k/uL (3.8-10.6)
[2020-02-24 04:58] LABS: ALT 8 U/L (4-49); AST 14 U/L (17-59); African American GFR (CKD) >90 (>60 ml/min/1.73 sqM); Albumin 2.7 g/dL (3.5-5.0); Alkaline Phosphatase 63 U/L (38-126); Anion Gap 5 mmol/L; Blood Urea Nitrogen 8 mg/dL (9-20); Calcium 8.5 mg/dL (8.4-10.2); Carbon Dioxide 30 mmol/L (22-30); Chloride 105 mmol/L (98-107); Glucose 111 mg/dL (74-99); Non-African American GFR(CKD) >90 (>60 ml/min/1.73 sqM); Potassium 4.2 mmol/L (3.5-5.1); Sodium 140 mmol/L (137-145); Total Bilirubin 0.6 mg/dL (0.2-1.3); Total Protein 5.2 g/dL (6.3-8.2)
[2020-02-24] MEDS: PROPOFOL 1,000 MG in EMPTY BAG 1 BAG IV SCH ×5 (05:16→23:16)
--- NOTE | 2020-02-24 06:29 | XR ---
EXAMINATION TYPE: XR chest 1V portable DATE OF EXAM: 02/24/2020 HISTORY: Tube placement. REFERENCE: Previous study dated 02/23/2020. FINDINGS: The patient's ET tube and NG tube remain in place, unchanged in appearance. There is a moderate levoscoliosis. The lungs remain clear. Pleural space are clear. The heart is not enlarged. IMPRESSION: NO ACUTE INTRATHORACIC DISEASE.
[2020-02-24 07:17] LABS: ABG Base Excess 3.5 mmol/L; ABG HCO3 28 mmol/L (21-25); ABG Oxygen Saturation 98.5 % (94-97); ABG PCO2 46 mmHg (35-45); ABG PO2 117 mmHg (83-108); ABG TCO2 30 mmol/L (19-24)
[2020-02-24 07:18] LABS: Allen Test Performed? no
[2020-02-24] MEDS: PANTOPRAZOLE 40 MG/10 ML VIAL IV SCH (08:56)
[2020-02-24] MEDS: BACLOFEN 10 MG TAB PO SCH ×3 (08:56→21:39)
[2020-02-24] MEDS: levETIRAcetam IV 500 MG in SODIUM CHLORIDE 0.9% 100 ML IVPB SCH (08:56)
[2020-02-24] MEDS: METOPROLOL TARTRATE 25 MG TAB PO SCH ×2 (08:56→21:39)
[2020-02-24] MEDS: CHLORHEXIDINE GLUCONATE 15 ML CUP MUCOUS MEM SCH ×2 (08:56→21:39)
--- NOTE | 2020-02-24 10:59 | P.PN ---
Subjective Progress Note Date: 02/24/20 Principal diagnosis: Baclofen overdose This is a 20-year-old white male, unknown past medical history, patient was brought into the emergency room yesterday with reported overdose. Supposedly the patient took a large amount of alcohol and multiple muscle relaxers. Then the patient became unresponsive, and EMS was notified. Upon EMS arrival, patient received Narcan, he had no responses whatsoever. Patient was hemodynamically stable, but was unresponsive upon arrival to the ER. Upon arrival, patient was intubated, placed on mechanical ventilation. Poison control mostly recommended supportive care measures. His drug screen came back mostly negative except for positive for marijuana. His acetaminophen level was below 10 salicylates level was below 1 and his serum alcohol level was less than 10. Covid 19 PCR was negative. Chest x-ray showed no evidence of infiltrate. CT of the brain was also negative. Upon my evaluation today, patient is in the ICU, he is on mechanical ventilation. Assist control rate of 20, volume is 400 FiO2 is 40% PEEP of 5. ABG showed a pO2 of 187 pCO2 of 47 pH of 7.41. Patient again is hemodynamically stable, he is in sinus rhythm sometimes sinus tachycardia with a rate of 116. On propofol, and I have recommended stopping the propofol, addressing the patient's mental status, weaning parameters, and if possible the patient will be given a weaning trial in the next few hours. Patient was reevaluated today on 02/22/20, patient remains in the ICU, intubated and mechanically ventilated. Presently on assist control rate of 20 tidal volume is 400 FiO2 is 30% PEEP of 5. His ABG showed a pO2 of 194 pCO2 of 45 pH of 7.44. Patient is on propofol at 50 mcg/m, IV fluid D5 45 at 1 25 mL per hour. His chest x-ray showed no evidence of infiltrates. Patient was given a sedation interruption trial, however as soon as the propofol when down to a lower dose, patient became extremely agitated, restless, violent in bed, and he was about to pull out his endotracheal tube and his lines. Then I had to put him back again on propofol, he was bolused with propofol, and felt that the patient is not quite ready for weaning. When he was agitated, patient would not open his eyes, would not follow any instructions, and would not maintain any eye contact. Obviously he is not ready for weaning at this point yet. Hence I placed him back on propofol, back on his before meals mode of mechanical ventilation, and we'll start enteral feeding. May also recommended neurological evaluation on this patient. Reevaluated today on 02/23/20, patient remains in the ICU, intubated, mechanically ventilated. EEG showed evidence of diffuse cerebral dysfunction. Patient remains on assist control mode of mechanical ventilation, tidal volume is 400 FiO2 is 30%, assist control rate of 20 PEEP of 5. ABG showed a pO2 of 121 pCO2 of 43 pH of 7.43. Chest x-ray remains clear, no evidence of infiltrate. Patient continues to have episodes of extreme agitation to the point of practically sitting in bed, thrashing restless, and biting on the endotracheal tube. Could not get the patient in the last 24 hours to open his eyes, maintain any eye contact, or follow any simple instructions. Considering the extreme agitation, patient was placed on Versed which I have increased to 20 mg per hour, and I recommended propofol to be restarted and go as high as 50 mcg/kg/m. Patient remains tachycardic, rate is in the 130-140, and I recommended small dose of beta nereyda/Lopressor. 25 mg twice a day. I have also recommended that the patient to receive Ativan as needed for extreme agitation. The last resort would be to start the patient on Nimbex. However I will try to avoid paralytics as much as possible. Reevaluated today on 02/24/20. Patient remains in the ICU, intubated and mechanically ventilated. His ventilator settings are assist control rate of 20 tidal volume is 400 FiO2 is 30% and PEEP is 5. ABG showed a pO2 of 117 pCO2 of 45 pH of 7.40. Patient remains fully sedated, not paralyzed. He is on Versed at 20 mg per hour, propofol at 50 mcg/kg/m, his IV fluid is at 1 25 mL/h, patient is also on baclofen 10 mg 3 times a day for baclofen withdrawal possibility as recommended by poison control and by neurology on the case, he is also on Keppra. No major issues overnight, patient does get irritated very easily, and could not control his agitation with propofol alone or Versed alone. Had to use both. At any rate the plan today is to decrease sedation, assess mental status if possible before the patient gets extremely agitated, and I have no plans to wean him more extubate him today. I have seen the patient yesterday coming out of sedation, and he gets extremely wild and agitated. And does not comprehend does not follow any instructions, and does not maintain any eye contact. Objective - Vital Signs Vital signs: Vital Signs Temp 98.8 F 02/24/20 08:00 Pulse 87 02/24/20 10:00 Resp 20 02/24/20 10:00 BP 116/66 02/24/20 09:00 Pulse Ox 97 02/24/20 10:00 Intake & Output 02/23/20 02/24/20 02/24/20 18:59 06:59 18:59 Intake Total 3133.264 4505.167 789.351 Output Total 2253 1850 479 Balance -499.000 215.167 310.351 Weight 58.1 kg 57.5 kg Intake: Intake, IV Titration 9909.564 1948.167 752.351 Amount Dextrose 5%-0.45% NaCl 1, 1625 1375 500 000 ml @ 125 mls/hr IV . Q8H [facility] Rx#:[id number] Midazolam HCl 200 mg In 100.000 93.167 63.167 Sodium Chloride 0.9% 60 ml @ 10 MG/HR 5 mls/hr IV .Q20H [facility] Rx#:[id number] Propofol 1,000 mg In 100 89.184 Empty Bag 1 bag @ Titrate IV .Q0M [facility] Rx#: [id number] levETIRAcetam IV 500 mg 100 In Sodium Chloride 0.9% 100 ml @ 400 mls/hr IVPB Q12HR [facility] Rx#:[id number] Tube Feeding 29 407 37 Other 90 Output: Urine 2253 1850 479 Other: Voiding Method Indwelling Catheter Indwelling Catheter Indwelling Catheter ABP, PAP, CO, CI - Last Documented Arterial Blood Pressure 106/56 - Exam Physical Exam: Revealed a 20-year-old white male in no distress, on mechanical ventilation. Head: Atraumatic, normocephalic. Endotracheal tube and orogastric tube are intact. HEENT:[Neck is supple.] [No neck masses.] [No thyromegaly.] [No JVD.] PERRLA, EOMI, no icterus. Chest: [Clear throughout, no crackles, no rhonchi, no wheezes.] Cardiac Exam: Tachycardic, sinus tachycardia. [Normal S1 and S2, no S3 gallop, no murmur.] Abdomen: [Soft, nontender, no megaly, no rebound, no guarding, normal bowel sounds.] Extremities: [Positive clubbing, no edema, no cyanosis.] Neurological Exam: Sedated, with propofol and Versed. Psychiatric: Could not be assessed. Skin: No rashes. - Labs CBC & Chem 7: 02/24/20 04:30 02/24/20 04:30 Labs: Abnormal Lab Results - Last 24 Hours (Table) 02/23/20 02/23/20 02/24/20 Range/Units 17:50 23:47 04:30 WBC 14.2 H (3.8-10.6) k/uL RBC 4.10 L (4.30-5.90) m/uL Hgb 12.3 L (13.0-17.5) gm/dL Neutrophils # 11.3 H (1.3-7.7) k/uL Monocytes # 1.2 H (0-1.0) k/uL ABG pCO2 (35-45) mmHg ABG pO2 (83-108) mmHg ABG HCO3 (21-25) mmol/L ABG Total CO2 (19-24) mmol/L ABG O2 Saturation (94-97) % BUN (9-20) mg/dL Creatinine (0.66-1.25) mg/dL Glucose (74-99) mg/dL POC Glucose (mg/dL) 115 H 100 H (75-99) mg/dL AST (17-59) U/L Total Protein (6.3-8.2) g/dL Albumin (3.5-5.0) g/dL 02/24/20 02/24/20 Range/Units 04:30 07:14 WBC (3.8-10.6) k/uL RBC (4.30-5.90) m/uL Hgb (13.0-17.5) gm/dL Neutrophils # (1.3-7.7) k/uL Monocytes # (0-1.0) k/uL ABG pCO2 46 H (35-45) mmHg ABG pO2 117 H (83-108) mmHg ABG HCO3 28 H (21-25) mmol/L ABG Total CO2 30 H (19-24) mmol/L ABG O2 Saturation 98.5 H (94-97) % BUN 8 L (9-20) mg/dL Creatinine 0.63 L (0.66-1.25) mg/dL Glucose 111 H (74-99) mg/dL POC Glucose (mg/dL) (75-99) mg/dL AST 14 L (17-59) U/L Total Protein 5.2 L (6.3-8.2) g/dL Albumin 2.7 L (3.5-5.0) g/dL Microbiology - Last 24 Hours (Table) 02/20/20 20:37 Gram Stain - Final Sputum Sputum Culture - Final Assessment and Plan Assessment: Impression: Acute hypoxic respiratory failure secondary to drug overdose, Supposedly baclofen overdose.. Failure to respond to Narcan upon presentation. Possible baclofen withdrawal, hence baclofen via nasogastric tube was recommended by poison control, and recommended by neurology on the case. Digital clubbing on physical examination, exact etiology is not clear, would hav e to be investigated on outpatient basis. Extreme agitation requiring significant amount of propofol and Versed for sedation, Recommendation: Continue ventilatory support. Continue propofol and Versed. Titrate both doses down, and hopefully try to assess mental status on a lower dose of both but make sure that patient does not get extreme agitation in the process. Continue enteral feeding Continue GI and DVT prophylaxis. Supportive care measures. We'll continue to follow. Critical care time is 34 minutes Time with Patient: Greater than 30
[2020-02-24 11:48] LABS: Glucose,Whole Blood 73 mg/dL (75-99)
[2020-02-24] MEDS ORDERED: LORazepam 2 MG/ML INJ IV STA (11:57)
[2020-02-24] MEDS: levETIRAcetam IV 1,000 MG in SALINE 1 100ML.BAG IVPB SCH ×2 (12:14→23:04)
--- NOTE | 2020-02-24 15:45 | P.PN ---
Subjective Patient is admitted with the possible and reported overdose exact overdose medication is unknown urine drug screen was only positive for tetrahydroc annabinol, because of unresponsiveness patient was intubated for protection of airway. The friend who brought into ER later found unresponsive as well with the similar urine drug screen was subsequently intubated as well. Patient is mildly bradycardic at this time patient is on sedation with baseline settings patient is undergoing weaning trial once he is more awake after sedation vacation plan is to extubate him today. Chest x-ray from today is better than yesterday without any infiltrate no fever 02/22/2020 Patient is seen and evaluated in follow-up and remains in the ICU intubated and on mechanical vent. Weaning was attempted today although patient became extremely agitated and restless and unable to follow any commands and was reinitiated on propofol. Neurology consulted and pending at this time. Per ER notes it was suggested of possible overdose baclofen ingestion per family although unwitnessed. Testing was sent out for baclofen level although this is a send out will await report. Patient to remain sedated at this time. This morning's chest x-ray shows resolved left periHilar airspace disease. 02/23/2020 As for toxicology patient appears to have overdosed on baclofen which he sharing with his friend who was also intubated at this time. Neurology evaluated the patient patient again remains on high sedation EEG showed epileptiform focus patient does have history of cerebral palsy and has been using baclofen for spasticity patient was started back on baclofen is of concern of baclofen withdrawal and patient aspirin neurology will benefit from continuous EEG monitoring. Patient was started on antiseizure medications. Patient has autonomic instability patient appears to have overdosed on baclofen alcohol and marijuana may be synthetic marijuana. Patient is presently on Versed. A she is also antipsychotic which was resumed. Patient remains on ventilator support with PEEP of 5 episode of 30% and volume of 400 set up respiratory rate of 20 bleeding or the ventilator. Patient was having episodes of agitation patient is occasionally tachycardic was started on beta nereyda. 02/24/2020 Patient sedation is bit down. 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 Objective - Vital Signs Vital signs: Vital Signs Temp 98.9 F 02/24/20 12:00 Pulse 103 H 02/24/20 15:34 Resp 20 02/24/20 15:00 BP 115/61 02/24/20 15:00 Pulse Ox 100 02/24/20 15:00 Intake & Output 02/23/20 02/24/20 02/24/20 18:59 06:59 18:59 Intake Total 6606.744 1995.167 1621.478 Output Total 2253 1850 1126 Balance -499.000 215.167 495.478 Weight 58.1 kg 57.5 kg Intake: Intake, IV Titration 0465.234 4797.167 1537.478 Amount Dextrose 5%-0.45% NaCl 1, 1625 1375 1125 000 ml @ 125 mls/hr IV . Q8H [facility] Rx#:[id number] Midazolam HCl 200 mg In 100.000 93.167 74.875 Sodium Chloride 0.9% 60 ml @ 10 MG/HR 5 mls/hr IV .Q20H [facility] Rx#:[id number] Propofol 1,000 mg In 100 137.603 Empty Bag 1 bag @ Titrate IV .Q0M [facility] Rx#: [id number] levETIRAcetam IV 1,000 mg 100 In Saline 1 100ml.bag @ 400 mls/hr IVPB Q12H [facility] Rx#:[id number] levETIRAcetam IV 500 mg 100 In Sodium Chloride 0.9% 100 ml @ 400 mls/hr IVPB Q12HR [facility] Rx#:[id number] Tube Feeding 29 407 84 Other 90 Output: Urine 2253 1850 1126 Other: Voiding Method Indwelling Catheter Indwelling Catheter Indwelling Catheter ABP, PAP, CO, CI - Last Documented Arterial Blood Pressure 113/58 - Exam GENERAL: 20-year-old male intubated and remains sedated on propofol with previous attempt at weaning although experienced extreme agitation and restlessness with inability to follow commands. HEENT: Pupils are round and equally reacting to light. EOMI. No scleral icterus. No conjunctival pallor. Normocephalic, atraumatic. No pharyngeal erythema. No thyromegaly. CARDIOVASCULAR: S1 and S2 present. No murmurs, rubs, or gallops. PULMONARY: Chest is clear to auscultation, no wheezing or crackles. ABDOMEN: Soft, nondistended, normoactive bowel sounds. No palpable organomegaly. MUSCULOSKELETAL: No joint swelling or deformity. EXTREMITIES: No cyanosis, or pedal edema. NEUROLOGICAL: Intubated and sedated SKIN: No rashes. - Labs CBC & Chem 7: 02/24/20 04:30 02/24/20 04:30 Labs: Abnormal Lab Results - Last 24 Hours (Table) 02/23/20 02/23/20 02/24/20 Range/Units 17:50 23:47 04:30 WBC 14.2 H (3.8-10.6) k/uL RBC 4.10 L (4.30-5.90) m/uL Hgb 12.3 L (13.0-17.5) gm/dL Neutrophils # 11.3 H (1.3-7.7) k/uL Monocytes # 1.2 H (0-1.0) k/uL ABG pCO2 (35-45) mmHg ABG pO2 (83-108) mmHg ABG HCO3 (21-25) mmol/L ABG Total CO2 (19-24) mmol/L ABG O2 Saturation (94-97) % BUN (9-20) mg/dL Creatinine (0.66-1.25) mg/dL Glucose (74-99) mg/dL POC Glucose (mg/dL) 115 H 100 H (75-99) mg/dL AST (17-59) U/L Total Protein (6.3-8.2) g/dL Albumin (3.5-5.0) g/dL 02/24/20 02/24/20 02/24/20 Range/Units 04:30 07:14 11:47 WBC (3.8-10.6) k/uL RBC (4.30-5.90) m/uL Hgb (13.0-17.5) gm/dL Neutrophils # (1.3-7.7) k/uL Monocytes # (0-1.0) k/uL ABG pCO2 46 H (35-45) mmHg ABG pO2 117 H (83-108) mmHg ABG HCO3 28 H (21-25) mmol/L ABG Total CO2 30 H (19-24) mmol/L ABG O2 Saturation 98.5 H (94-97) % BUN 8 L (9-20) mg/dL Creatinine 0.63 L (0.66-1.25) mg/dL Glucose 111 H (74-99) mg/dL POC Glucose (mg/dL) 73 L (75-99) mg/dL AST 14 L (17-59) U/L Total Protein 5.2 L (6.3-8.2) g/dL Albumin 2.7 L (3.5-5.0) g/dL Assessment and Plan Plan: -Acute hypoxic respiratory failure, altered mental status secondary to toxic encephalopathy and acute respiratory failure is secondary to drug overdose patient is intubated for protection of airway. Possibility of baclofen overdose patient appears to have been undergoing baclofen withdrawals at this time. Patient has extreme agitation. Patient was started back on baclofen as recommended by toxicology. Patient is requiring high amounts of sedation, presently possible withdrawal from baclofen -Epileptiform activity on the EEG patient was started on antiseizure medications patient does have history of cerebral palsy for which patient is on baclofen for rigidity. 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
[2020-02-24] MEDS: ACETAMINOPHEN IV (For NPO) 1,000 MG in EMPTY BAG 1 BAG IVPB PRN (17:02)
[2020-02-24 17:56] LABS: Amorphous Sediment,Urine Rare /hpf; Appearance,Urine Cloudy (Clear); Bacteria,Urine Rare /hpf; Bilirubin,Urine Negative (Negative); Blood,Urine Negative (Negative); Color,Urine Light Yellow; Glucose,Urine (UA) Negative (Negative); Ketones,Urine Negative (Negative); Leukocyte Esterase,Urine Negative (Negative); Mucus,Urine Rare /hpf; Nitrite,Urine Negative (Negative); Protein,Urine Negative (Negative); RBC,Urine 1 /hpf (0-5); Specific Gravity,Urine 1.012 (1.001-1.035); WBC,Urine 1 /hpf (0-5)
[2020-02-24 18:17] LABS: Glucose,Whole Blood 137 mg/dL (75-99)
[2020-02-24] MEDS: QUEtiapine 50 MG TAB PO SCH (21:39)
[2020-02-24 23:11] LABS: Glucose,Whole Blood 144 mg/dL (75-99)
[2020-02-25] MEDS: IPRATROPIUM-ALBUTEROL 3 ML NEB INHALATION SCH ×2 (03:41→07:11)
[2020-02-25 04:42] LABS: Basophils # (A) 0.1 k/uL (0-0.2); Basophils % (A) 0 %; Eosinophils # (A) 0.2 k/uL (0-0.7); Eosinophils % (A) 1 %; HCT 39.9 % (39.0-53.0); HGB 12.3 gm/dL (13.0-17.5); Lymphocytes # (A) 1.4 k/uL (1.0-4.8); Lymphocytes % (A) 10 %; MCH 29.5 pg (25.0-35.0); MCHC 30.9 g/dL (31.0-37.0); MCV 95.7 fL (80.0-100.0); Mean Platelet Volume 7.6; Monocytes # (A) 1.1 k/uL (0-1.0); Monocytes % (A) 8 %; Neutrophils # (A) 10.6 k/uL (1.3-7.7); Neutrophils % (A) 79 %; Platelet Count 226 k/uL (150-450); RBC 4.17 m/uL (4.30-5.90); RDW 12.6 % (11.5-15.5); WBC 13.5 k/uL (3.8-10.6)
[2020-02-25 04:52] LABS: African American GFR (CKD) >90 (>60 ml/min/1.73 sqM); Anion Gap 4 mmol/L; Blood Urea Nitrogen 9 mg/dL (9-20); Calcium 8.4 mg/dL (8.4-10.2); Carbon Dioxide 27 mmol/L (22-30); Chloride 107 mmol/L (98-107); Glucose 118 mg/dL (74-99); Non-African American GFR(CKD) >90 (>60 ml/min/1.73 sqM); Potassium 3.9 mmol/L (3.5-5.1); Sodium 138 mmol/L (137-145)
[2020-02-25] MEDS: PROPOFOL 1,000 MG in EMPTY BAG 1 BAG IV SCH (05:00)
[2020-02-25 05:29] LABS: ABG HCO3 27 mmol/L (21-25); ABG Oxygen Saturation 98.1 % (94-97); ABG PCO2 41 mmHg (35-45); ABG PH 7.43 (7.35-7.45); ABG PO2 103 mmHg (83-108); ABG TCO2 29 mmol/L (19-24); Allen Test Performed? Yes
[2020-02-25] MEDS: DEXTROSE 5%-0.45% NACL 1,000 ML IV SCH (05:44)
[2020-02-25] MEDS ORDERED: POTASSIUM BICARBONATE/CIT AC 20 MEQ TABLET.EFF NG-TUBE SCH (06:00)
--- NOTE | 2020-02-25 07:24 | XR ---
EXAMINATION TYPE: XR chest 1V portable DATE OF EXAM: 02/25/2020 COMPARISON: 02/24/2020 HISTORY: Endotracheal tube placement TECHNIQUE: Single frontal view of the chest is obtained. FINDINGS: There is no focal air space opacity, pleural effusion, or pneumothorax seen. Levoscoliosis and rotation exaggerate the left hilar vasculature. Endotracheal tube is placed approximately 5.6 cm from the winter unchanged from the prior and enteric tube courses off the distal [id number]. Atte ntion on follow-up exams to the endotracheal tube is this is slightly cephalad in position. The cardi ac silhouette size is within normal limits. The osseous structures are intact. IMPRESSION: No acute process.
[2020-02-25] MEDS: CHLORHEXIDINE GLUCONATE 15 ML CUP MUCOUS MEM SCH (08:15)
[2020-02-25] MEDS: METOPROLOL TARTRATE 25 MG TAB PO SCH ×2 (08:15→20:24)
[2020-02-25] MEDS: BACLOFEN 10 MG TAB PO SCH ×3 (08:15→20:26)
[2020-02-25] MEDS: PANTOPRAZOLE 40 MG/10 ML VIAL IV SCH (08:15)
[2020-02-25] MEDS: ACETAMINOPHEN IV (For NPO) 1,000 MG in EMPTY BAG 1 BAG IVPB PRN (08:27)
[2020-02-25 09:14] VITALS: BMI 19.8
[2020-02-25] MEDS: DEXTROSE 5%-0.9% NACL 1,000 ML IV SCH (11:18)
[2020-02-25] MEDS: levETIRAcetam IV 1,000 MG in SALINE 1 100ML.BAG IVPB SCH ×2 (11:48→22:54)
[2020-02-25 11:58] LABS: Glucose,Whole Blood 122 mg/dL (75-99)
--- NOTE | 2020-02-25 12:01 | P.PN ---
Subjective Progress Note Date: 02/25/20 Patient admitted to the hospital on 02/20/2020 due to overdose on multiple medications. His friend at detention house was also admitted with same issue. Apparently patient overdose on baclofen, Robaxin, some alcohol and also does marijuana. Patient finally extubated today at 9 AM. Patient is still slightly encephalopathic, but follows commands. Patient is not speaking, but following commands well, although with inconsistency and slow response. Patient apparently had some rhythmic seizure type activity yesterday at noon. At that time he was being weaned off Versed and 4 was decreased. Patient was given Ativan 1 mg. He had high fever of 102.4 yesterday. Now he is afebrile. Objective - Vital Signs Vital signs: Vital Signs Temp 98 F 02/25/20 10:00 Pulse 113 H 02/25/20 11:00 Resp 20 02/25/20 11:00 BP 140/84 02/25/20 11:00 Pulse Ox 97 02/25/20 11:00 Intake & Output 02/24/20 02/25/20 02/25/20 18:59 06:59 18:59 Intake Total 2620.059 2136.50 999.05 Output Total 1501 1785 995 Balance 1119.059 351.50 4.05 Weight 59 kg 59 kg Intake: IV 1425 625 Dextrose 5%-0.45% NaCl 1, 1325 625 000 ml @ 125 mls/hr IV . Q8H [facility] Rx#:[id number] levETIRAcetam IV 1,000 mg 100 In Saline 1 100ml.bag @ 400 mls/hr IVPB Q12H [facility] Rx#:[id number] Intake, IV Titration 2489.059 134.50 156.05 Amount ACETAMINOPHEN IV (For NPO 400 ) 1,000 mg In Empty Bag 1 bag @ 400 mls/hr IVPB Q6HR [facility] Rx#:[id number] ACETAMINOPHEN IV (For NPO 100 ) 1,000 mg In Empty Bag 1 bag @ 400 mls/hr IVPB Q6HR [facility] Rx#:[id number] Dextrose 5%-0.45% NaCl 1, 1625 000 ml @ 125 mls/hr IV . Q8H [facility] Rx#:[id number] Midazolam HCl 200 mg In 74.875 Sodium Chloride 0.9% 60 ml @ 10 MG/HR 5 mls/hr IV .Q20H [facility] Rx#:[id number] Propofol 1,000 mg In 189.184 134.50 56.05 Empty Bag 1 bag @ Titrate IV .Q0M [facility] Rx#: [id number] levETIRAcetam IV 1,000 mg 100 In Saline 1 100ml.bag @ 400 mls/hr IVPB Q12H [facility] Rx#:[id number] levETIRAcetam IV 500 mg 100 In Sodium Chloride 0.9% 100 ml @ 400 mls/hr IVPB Q12HR [facility] Rx#:[id number] Tube Feeding 131 517 188 Other 60 30 Output: Urine 1501 1785 995 Other: Voiding Method Indwelling Catheter Indwelling Catheter Indwelling Catheter # Bowel Movements 125 ABP, PAP, CO, CI - Last Documented Arterial Blood Pressure 161/94 - Exam Patient is just extubated a few hours ago. He is following commands. 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 He does wiggle his feet, knees and appeared to have goo d strength. Appears generalized weak. Pupils are round and reactive. Patient smiles for no apparent reason, almost psychogenic. Plantars are flat. - Labs CBC & Chem 7: 02/25/20 04:20 02/25/20 04:20 Labs: Abnormal Lab Results - Last 24 Hours (Table) 02/24/20 02/24/20 02/24/20 Range/Units 16:47 18:16 23:10 WBC (3.8-10.6) k/uL RBC (4.30-5.90) m/uL Hgb (13.0-17.5) gm/dL MCHC (31.0-37.0) g/dL Neutrophils # (1.3-7.7) k/uL Monocytes # (0-1.0) k/uL ABG HCO3 (21-25) mmol/L ABG Total CO2 (19-24) mmol/L ABG O2 Saturation (94-97) % Creatinine (0.66-1.25) mg/dL Glucose (74-99) mg/dL POC Glucose (mg/dL) 137 H 144 H (75-99) mg/dL Amorphous Sediment Rare H (None) /hpf Urine Bacteria Rare H (None) /hpf Urine Mucus Rare H (None) /hpf 0502/25/20 02/25/20 Range/Units 04:20 04:20 05:24 WBC 13.5 H (3.8-10.6) k/uL RBC 4.17 L (4.30-5.90) m/uL Hgb 12.3 L (13.0-17.5) gm/dL MCHC 30.9 L (31.0-37.0) g/dL Neutrophils # 10.6 H (1.3-7.7) k/uL Monocytes # 1.1 H (0-1.0) k/uL ABG HCO3 27 H (21-25) mmol/L ABG Total CO2 29 H (19-24) mmol/L ABG O2 Saturation 98.1 H (94-97) % Creatinine 0.58 L (0.66-1.25) mg/dL Glucose 118 H (74-99) mg/dL POC Glucose (mg/dL) (75-99) mg/dL Amorphous Sediment (None) /hpf Urine Bacteria (None) /hpf Urine Mucus (None) /hpf Microbiology - Last 24 Hours (Table) 02/25/20 03:55 Sputum Culture - Preliminary Sputum Assessment and Plan Assessment: * Polysubstance abuse with drug overdose with baclofen, possibly Robaxin, some alcohol and marijuana use. * Reported childhood history of hydrocephalus and spasticity. * Status post ventilator dependent respiratory failure, now extubated today. Plan: * Patient is on Keppra 1000 mg twice a day for seizure prophylaxis. Patient had possible some seizure type episode yesterday. * We will review the EEG. * Patient is slightly encephalopathic, but does follow commands. Hopefully will improve rapidly over the next few days.
--- NOTE | 2020-02-25 14:05 | PN ---
PROGRESS NOTE PULMONARY/CRITICAL CARE PROGRESS NOTE: DATE OF SERVICE: 02/25/2020 CRITICAL CARE TIME: 34 minutes This is a 20-year-old male who was admitted on February 19 with a drug overdose. His drug screen was only positive for marijuana. They believe he may have taken an excess of baclofen and Robaxin. Anyway, yesterday, he apparently had a seizure and was placed on Keppra. An EEG was ordered. I suspect that one of the neurologists thought that the patient may be having nonconvulsive status. There was some talk of transfer with possible continuous EEG monitoring. This morning, he is on the volume assist-control mode rate of 20, tidal volume 400, FiO2 of 30%, PEEP of 5. Blood gases show a PO2 of 103, pCO2 of 41 and pH of 7.4. He is on propofol at 50 mcg/kg per minute, D5 of 0.45 at 125 mL an hour and Vital high-protein at 47 with a goal of 47 mL an hour. Today, will do a daily interruption of sedation. We will place him on PSV 5, CPAP of 5. Will get some weaning parameters. If everything looks good, he has a positive cuff leak, the patient will likely be extubated. Again, his drug screen was only positive for THC. The suspected overdose was baclofen and Robaxin. Current vital signs are reviewed, temperature 98, heart rate 113, respiratory rate 20, blood pressure 140/84 mean 102, saturations are 97%. Appears in no acute distress. Currently sedated. HEENT: Examination is grossly unremarkable. There is an orally placed endotracheal tube and NG tube. NECK: Supple. Full range of motion. No adenopathy. Neck veins are flat. CARDIOVASCULAR: Examination reveals regular rhythm and rate. Heart rate about 110 beats per minute. It is regular. S1, S2 normal. LUNGS: Mostly clear. A few scattered mild rhonchi. No wheezes or crackles. ABDOMEN: Soft, bowel sounds are heard. EXTREMITIES: Intact. No edema. SKIN: Without rash. NEUROLOGIC: Examination is difficult to assess because he is on a high dose of propofol. LAB DATA: Reviewed. White count 13.5, hemoglobin 12.3, hematocrit 39.9, platelet count 326 1000. Blood gases already been noted. Sodium 138, potassium 3.9, chloride 107, CO2 is 27, anion gap is 4. BUN and creatinine were 9 and 0.58. Calcium 8.4. Microbiology including sputum sampling was negative. Chest x-ray from February 24 shows no acute process. Medications include baclofen, D5 at 0.45 at 1:25, Ativan, metoprolol, Versed, Narcan, Protonix, and Seroquel. ASSESSMENT: 1. Acute hypoxemic respiratory failure secondary to drug overdose, suspected to be baclofen and/or Robaxin. 2. Possible baclofen withdrawal syndrome. 3. New onset seizure disorder February 24, 2020, currently on Keppra. 4. Extreme agitation, status post withdrawal of sedatives, which has prevented extubation. PLAN: The patient will have a daily interruption of sedation today. He may just need to be extubated without weaning parameters. We will try to do a cuff leak. We will hold the propofol. The patient will remain on fluids. Postop vital high-protein and evacuate the stomach. Additional recommendations and suggestions are forthcoming. Will continue to follow. Prognosis is guarded. He may or may not be needed. He may or may not be extubated today. He is being followed by Neurology. Apparent seizure yesterday. EEG is pending. CRITICAL CARE TIME: 34 minutes. MMODL / IJN: [id number] /
[2020-02-25] MEDS ORDERED: ACETAMINOPHEN TAB 325 MG TAB PO PRN (15:31)
[2020-02-25] MEDS: AMOXIC-POT CLAV 875-125MG 1 EACH TAB PO SCH (18:50)
[2020-02-25] MEDS: NICOTINE 21MG/24HR PATCH TRANSDERM SCH (22:54)
[2020-02-26] MEDS: DEXTROSE 5%-0.9% NACL 1,000 ML IV SCH (02:56)
[2020-02-26 04:17] LABS: Basophils # (A) 0.1 k/uL (0-0.2); Basophils % (A) 0 %; Eosinophils # (A) 0.1 k/uL (0-0.7); Eosinophils % (A) 1 %; HCT 41.3 % (39.0-53.0); HGB 13.3 gm/dL (13.0-17.5); Lymphocytes # (A) 1.4 k/uL (1.0-4.8); Lymphocytes % (A) 10 %; MCH 30.1 pg (25.0-35.0); MCHC 32.2 g/dL (31.0-37.0); MCV 93.6 fL (80.0-100.0); Mean Platelet Volume 7.4; Monocytes # (A) 1.2 k/uL (0-1.0); Monocytes % (A) 8 %; Neutrophils # (A) 11.7 k/uL (1.3-7.7); Neutrophils % (A) 79 %; Platelet Count 313 k/uL (150-450); RBC 4.41 m/uL (4.30-5.90); RDW 12.3 % (11.5-15.5); WBC 14.8 k/uL (3.8-10.6)
[2020-02-26 04:39] LABS: ALT 17 U/L (4-49); AST 29 U/L (17-59); African American GFR (CKD) >90 (>60 ml/min/1.73 sqM); Albumin 3.4 g/dL (3.5-5.0); Alkaline Phosphatase 90 U/L (38-126); Anion Gap 10 mmol/L; Blood Urea Nitrogen 9 mg/dL (9-20); Calcium 9.1 mg/dL (8.4-10.2); Carbon Dioxide 23 mmol/L (22-30); Chloride 104 mmol/L (98-107); Glucose 106 mg/dL (74-99); Non-African American GFR(CKD) >90 (>60 ml/min/1.73 sqM); Potassium 3.8 mmol/L (3.5-5.1); Sodium 137 mmol/L (137-145); Total Bilirubin 0.7 mg/dL (0.2-1.3); Total Protein 6.5 g/dL (6.3-8.2)
[2020-02-26] MEDS ORDERED: Potassium Replacement Protocol 1 EACH MISC MISCELLANE PRN (05:25)
[2020-02-26] MEDS ORDERED: POTASSIUM CHLORIDE ER 20 MEQ TAB.ER PO SCH (06:00)
--- NOTE | 2020-02-26 07:25 | XR ---
EXAMINATION TYPE: XR chest 1V portable DATE OF EXAM: 02/26/2020 COMPARISON: 02/25/2020 HISTORY: Chest pain TECHNIQUE: Single frontal view of the chest is obtained. FINDINGS: Endotracheal and NG tubes have been removed. Mild residual right infrahilar infiltrate noted. The cardiac silhouette size is within normal limits. The osseous structures are intact. IMPRESSION: 1. Endotracheal and NG tubes have been removed. Mild residual right infrahilar infiltrate noted.
--- NOTE | 2020-02-26 08:19 | P.PN ---
Subjective Progress Note Date: 02/25/20 Principal diagnosis: Patient is admitted with the possible and reported overdose exact overdose medication is unknown urine drug screen was only positive for tetrahydrocannabinol, because of unresponsiveness patient was intubated for protection of airway. The friend who brought into ER later found unresponsive as well with the similar urine drug screen was subsequently intubated as well. Patient is mildly bradycardic at this time patient is on sedation with baseline settings patient is undergoing weaning trial once he is more awake after sedation vacation plan is to extubate him today. Chest x-ray from today is better than yesterday without any infiltrate no fever 02/22/2020 Patient is seen and evaluated in follow-up and remains in the ICU intubated and on mechanical vent. Weaning was attempted today although patient became extremely agitated and restless and unable to follow any commands and was reinitiated on propofol. Neurology consulted and pending at this time. Per ER notes it was suggested of possible overdose baclofen ingestion per family although unwitnessed. Testing was sent out for baclofen level although this is a send out will await report. Patient to remain sedated at this time. This morning's chest x-ray shows resolved left periHilar airspace disease. Endotracheal tube noted. 02/23/2020 As for toxicology patient appears to have overdosed on baclofen which he sharing with his friend who was also intubated at this time. Neurology evaluated the patient patient again remains on high sedation EEG showed epileptiform focus patient does have history of cerebral palsy and has been using baclofen for spasticity patient was started back on baclofen is of concern of baclofen withdrawal and patient aspirin neurology will benefit from continuous EEG monitoring. Patient was started on antiseizure medications. Patient has autonomic instability patient appears to have overdosed on baclofen alcohol and marijuana may be synthetic marijuana. Patient is presently on Versed. A she is also antipsychotic which was resumed. Patient remains on ventilator support with PEEP of 5 episode of 30% and volume of 400 set up respiratory rate of 20 bleeding or the ventilator. Patient was having episodes of agitation patient is occasionally tachycardic was started on beta nereyda. 02/24/2020 Patient sedation is bit down. 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 Patient is currently receiving EEG and is pending at this time. Neurology following. Patient continues on Keppra. Patient was febrile this morning at 101.3. Drug screen only showing positive for marijuana. Patient also remains on baclofen with concerns of possible nadeen lofen withdrawal and will closely monitor. Objective - Vital Signs Vital signs: Vital Signs Temp 102.3 F H 02/25/20 16:00 Pulse 117 H 02/25/20 16:00 Resp 29 H 02/25/20 16:00 BP 144/93 02/25/20 16:00 Pulse Ox 96 02/25/20 16:00 Intake & Output 02/24/20 02/25/20 02/25/20 18:59 06:59 18:59 Intake Total 2620.059 2136.50 1374.05 Output Total 1501 1785 1980 Balance 1119.059 351.50 -605.95 Weight 59 kg 59 kg Intake: IV 1425 1000 Dextrose 5%-0.45% NaCl 1, 1325 625 000 ml @ 125 mls/hr IV . Q8H [facility] Rx#:[id number] Dextrose 5%-0.9% NaCl 1, 375 000 ml @ 75 mls/hr IV . [id number] [facility] Rx#:[id number] levETIRAcetam IV 1,000 mg 100 In Saline 1 100ml.bag @ 400 mls/hr IVPB Q12H [facility] Rx#:[id number] Intake, IV Titration 2489.059 134.50 156.05 Amount ACETAMINOPHEN IV (For NPO 400 ) 1,000 mg In Empty Bag 1 bag @ 400 mls/hr IVPB Q6HR [facility] Rx#:[id number] ACETAMINOPHEN IV (For NPO 100 ) 1,000 mg In Empty Bag 1 bag @ 400 mls/hr IVPB Q6HR [facility]N Rx#:[id number] Dextrose 5%-0.45% NaCl 1, 1625 000 ml @ 125 mls/hr IV . Q8H [facility] Rx#:[id number] Midazolam HCl 200 mg In 74.875 Sodium Chloride 0.9% 60 ml @ 10 MG/HR 5 mls/hr IV .Q20H [facility] Rx#:[id number] Propofol 1,000 mg In 189.184 134.50 56.05 Empty Bag 1 bag @ Titrate IV .Q0M [facility] Rx#: [id number] levETIRAcetam IV 1,000 mg 100 In Saline 1 100ml.bag @ 400 mls/hr IVPB Q12H [facility] Rx#:[id number] levETIRAcetam IV 500 mg 100 In Sodium Chloride 0.9% 100 ml @ 400 mls/hr IVPB Q12HR [facility] Rx#:[id number] Tube Feeding 131 517 188 Other 60 30 Output: Urine 1501 1785 1980 Other: Voiding Method Indwelling Catheter Indwelling Catheter Indwelling Catheter # Bowel Movements 125 ABP, PAP, CO, CI - Last Documented Arterial Blood Pressure 167/102 - Exam GENERAL: 20-year-old male intubated and propofol has been turned off with attempts at weaning today. Currently receiving an EEG. HEENT: Pupils are round and equally reacting to light. EOMI. No scleral icterus. No conjunctival pallor. Normocephalic, atraumatic. No pharyngeal erythema. No thyromegaly. CARDIOVASCULAR: S1 and S2 present. No murmurs, rubs, or gallops. PULMONARY: Chest is clear to auscultation, no wheezing or crackles. ABDOMEN: Soft, nondistended, normoactive bowel sounds. No palpable organomegaly. MUSCULOSKELETAL: No joint swelling or deformity. EXTREMITIES: No cyanosis, or pedal edema. NEUROLOGICAL: Off sedation possible attempts at weaning this morning, patient was agitated and following commands. SKIN: No rashes. - Labs CBC & Chem 7: 02/26/20 04:00 02/26/20 04:00 Labs: Abnormal Lab Results - Last 24 Hours (Table) 02/24/20 02/24/20 02/24/20 Range/Units 16:47 18:16 23:10 WBC (3.8-10.6) k/uL RBC (4.30-5.90) m/uL Hgb (13.0-17.5) gm/dL MCHC (31.0-37.0) g/dL Neutrophils # (1.3-7.7) k/uL Monocytes # (0-1.0) k/uL ABG HCO3 (21-25) mmol/L ABG Total CO2 (19-24) mmol/L ABG O2 Saturation (94-97) % Creatinine (0.66-1.25) mg/dL Glucose (74-99) mg/dL POC Glucose (mg/dL) 137 H 144 H (75-99) mg/dL Amorphous Sediment Rare H (None) /hpf Urine Bacteria Rare H (None) /hpf Urine Mucus Rare H (None) /hpf 02/25/20 02/25/20 02/25/20 Range/Units 04:20 04:20 05:24 WBC 13.5 H (3.8-10.6) k/uL RBC 4.17 L (4.30-5.90) m/uL Hgb 12.3 L (13.0-17.5) gm/dL MCHC 30.9 L (31.0-37.0) g/dL Neutrophils # 10.6 H (1.3-7.7) k/uL Monocytes # 1.1 H (0-1.0) k/uL ABG HCO3 27 H (21-25) mmol/L ABG Total CO2 29 H (19-24) mmol/L ABG O2 Saturation 98.1 H (94-97) % Creatinine 0.58 L (0.66-1.25) mg/dL Glucose 118 H (74-99) mg/dL POC Glucose (mg/dL) (75-99) mg/dL Amorphous Sediment (None) /hpf Urine Bacteria (None) /hpf Urine Mucus (None) /hpf 02/25/20 Range/Units 11:56 WBC (3.8-10.6) k/uL RBC (4.30-5.90) m/uL Hgb (13.0-17.5) gm/dL MCHC (31.0-37.0) g/dL Neutrophils # (1.3-7.7) k/uL Monocytes # (0-1.0) k/uL ABG HCO3 (21-25) mmol/L ABG Total CO2 (19-24) mmol/L ABG O2 Saturation (94-97) % Creatinine (0.66-1.25) mg/dL Glucose (74-99) mg/dL POC Glucose (mg/dL) 122 H (75-99) mg/dL Amorphous Sediment (None) /hpf Urine Bacteria (None) /hpf Urine Mucus (None) /hpf Microbiology - Last 24 Hours (Table) 05/04/20 03:55 Gram Stain - Preliminary Sputum Sputum Culture - Preliminary Assessment and Plan Assessment: -Acute hypoxic respiratory failure, altered mental status secondary to toxic encephalopathy and acute respiratory failure is secondary to drug overdose patient is intubated for protection of airway. Possibility of baclofen overdose patient appears to have been undergoing baclofen withdrawals at this time. Patient is currently off sedation with attempts at weaning today. Patient is following simple commands. Patient was started back on baclofen as recommended by toxicology. -Epileptiform activity on the EEG patient was started on antiseizure medications patient does have history of cerebral palsy for which patient is on baclofen for rigidity. Currently remains on Keppra and neurology following -History of COMPUTER FORENSICS INVESTIGATOR shunt secondary to congenital hydrocephalus Arnold-chiari malformation -Alcohol abuse and marijuana overdose -Mild leukocytosis; no evidence of infection, most likely reactive in nature
[2020-02-26] MEDS: PANTOPRAZOLE 40 MG/10 ML VIAL IV SCH (08:33)
[2020-02-26] MEDS: AMOXIC-POT CLAV 875-125MG 1 EACH TAB PO SCH ×2 (08:33→20:34)
[2020-02-26] MEDS: BACLOFEN 10 MG TAB PO SCH ×3 (08:33→20:34)
[2020-02-26] MEDS: SODIUM CHLORIDE 0.9% 1,000 ML IV SCH ×2 (08:33→20:34)
[2020-02-26] MEDS: METOPROLOL TARTRATE 25 MG TAB PO SCH ×2 (08:33→20:34)
--- NOTE | 2020-02-26 11:21 | EEG ---
ELECTROENCEPHALOGRAM REPORT DATE OF SERVICE: 02/25/2020 PREAMBLE: This is a 20-year-old male who came to the hospital with overdose on baclofen, alcohol and marijuana. The patient has history of spasticity for cerebral palsy for which he receives baclofen. He has history of hydrocephalus as a child. The patient was brought to the hospital unresponsive. This is a followup EEG. EEG FINDINGS: This is a 21-channel portable EEG recording in a patient utilizing 10-20 international system and referential and bipolar montages. The background consists of fairly well- developed and regulated, predominantly 8-9 Hz alpha intermixed with some dysrhythmic generalized 3-4 Hz delta activity. There is possible electrode artifact noted in the T5 electrode. Patient's background does not seem to be reactive to eye opening and closing. Different stages of sleep were not seen. Photic driving response was not seen. No definitive focal or generalized epileptiform activity was seen. IMPRESSION: This is an abnormal EEG due to: 1. Intermittent generalized slowing. This is suggestive of intermittent generalized cerebral dysfunction, as can be seen with toxic metabolic encephalopathy or due to diffuse structural brain abnormality. When compared to the EEG from 02/22/2020, there is remarkable electrographic improvement. 2. No definitive epileptiform activity seen. 3. Study was mildly technically limited due to electrode artifact at T5. MMODL / IJN: [id number] / [facility]
--- NOTE | 2020-02-26 11:32 | P.PN ---
Subjective Progress Note Date: 02/26/20 Principal diagnosis: Acute hypoxemic respiratory failure secondary to drug overdose secondary to baclofen and alcohol The patient is seen today 02/26/2020 in follow-up in the intensive care unit. He was successfully extubated yesterday. He is currently awake and alert in no acute distress. He is maintaining good O2 saturations in the 90s on room air. He is somewhat slow to respond but appropriate. He states he did take 14 or 15 baclofen tablets on top of alcohol stating he was just "dumb". He denied any suicidal ideations. Repeat EEG reveals intermittent generalized slowing however there is remarkable electrographic improvement compared to 02/22/2020. No definitive epileptic activity seen. Blood culture reveals no growth. Sputum culture reveals no growth. White count 14.8. Hemoglobin 13.3. Sodium 137. Potassium 3.8. Creatinine 0.49. Chest x-rays improved revealing mild residual right infrahilar infiltrate. He is continued on Keppra and baclofen. Neurology remains on the case. Objective - Vital Signs Vital signs: Vital Signs Temp 99.2 F 02/26/20 08:00 Pulse 95 02/26/20 10:00 Resp 16 02/26/20 10:00 BP 148/98 02/26/20 08:00 Pulse Ox 95 02/26/20 08:00 Intake & Output 02/25/20 02/26/20 02/26/20 18:59 06:59 18:59 Intake Total 1764.05 1225 Output Total 2430 2745 Balance -665.95 -1520 Weight 59 kg 58.5 kg Intake: IV 1150 1075 Dextrose 5%-0.45% NaCl 1, 625 000 ml @ 125 mls/hr IV . Q8H [facility] Rx#:[id number] Dextrose 5%-0.9% NaCl 1, 525 975 000 ml @ 75 mls/hr IV . [id number] [facility] Rx#:[id number] levETIRAcetam IV 1,000 mg 100 In Saline 1 100ml.bag @ 400 mls/hr IVPB Q12H [facility] Rx#:[id number] Intake, IV Titration 156.05 Amount ACETAMINOPHEN IV (For NPO 100 ) 1,000 mg In Empty Bag 1 bag @ 400 mls/hr IVPB Q6HR PRN Rx#:[id number] Propofol 1,000 mg In 56.05 Empty Bag 1 bag @ Titrate IV .Q0M [facility] Rx#: [id number] Oral 240 150 Tube Feeding 188 Other 30 Output: Urine 2430 2745 Other: Voiding Method Indwelling Catheter Indwelling Catheter Indwelling Catheter # Bowel Movements 3 ABP, PAP, CO, CI - Last Documented Arterial Blood Pressure 152/85 - Exam GENERAL EXAM: Alert, comfortable 20-year-old gentleman, on room air, comfortable in no apparent distress. HEAD: Normocephalic. EYES: Normal reaction of pupils, equal size. NOSE: Clear with pink turbinates. THROAT: No erythema or exudates. NECK: No masses, no JVD. CHEST: No chest wall deformity. LUNGS: Equal air entry with no crackles, wheeze, rhonchi or dullness. CVS: S1 and S2 normal with no audible murmur, regular rhythm. ABDOMEN: No hepatosplenomegaly, normal bowel sounds, no guarding or rigidity. SPINE: No scoliosis or deformity SKIN: No rashes CENTRAL NERVOUS SYSTEM: No focal deficits, tone is normal in all 4 extremities. EXTREMITIES: There is no peripheral edema. No clubbing, no cyanosis. Peripheral pulses are intact. - Labs CBC & Chem 7: 02/26/20 04:00 02/26/20 04:00 Labs: Abnormal Lab Results - Last 24 Hours (Table) 02/25/20 02/25/20 02/26/20 Range/Units 04:20 11:56 04:00 WBC 14.8 H (3.8-10.6) k/uL Neutrophils # 11.7 H (1.3-7.7) k/uL Monocytes # 1.2 H (0-1.0) k/uL Creatinine (0.66-1.25) mg/dL Glucose (74-99) mg/dL POC Glucose (mg/dL) 122 H (75-99) mg/dL Albumin (3.5-5.0) g/dL Procalcitonin 0.19 H (0.02-0.09) ng/mL 02/26/20 Range/Units 04:00 WBC (3.8-10.6) k/uL Neutrophils # (1.3-7.7) k/uL Monocytes # (0-1.0) k/uL Creatinine 0.49 L (0.66-1.25) mg/dL Glucose 106 H (74-99) mg/dL POC Glucose (mg/dL) (75-99) mg/dL Albumin 3.4 L (3.5-5.0) g/dL Procalcitonin (0.02-0.09) ng/mL Microbiology - Last 24 Hours (Table) 02/24/20 17:19 Blood Culture - Preliminary Blood No Growth after 24 hours 02/25/20 03:55 Gram Stain - Preliminary Sputum Sputum Culture - Preliminary Assessment and Plan Assessment: 1 Acute hypoxemic respiratory failure secondary to an acute overdose on baclofen 2 New onset seizure suspected secondary to baclofen withdrawal, follow-up EEG shows remarkable improvement in the generalized slowing. No epileptic seizure activity. 3 Chronic tobacco dependence 4 Marijuana use Plan: The patient was seen and evaluated by Dr. Bran Chest x-ray and labs reviewed Augmentin 875 twice a day 3 days Transferred to the general medical floor with sitter at the bedside 16/05 Psychiatric consultation though the patient denies suicide attempt We'll continue to follow and make further recommendations based on his clinical status I, the cosigning physician, performed a history & physical examination of the patient. Lungs sounds are clear. Maintaining good O2 saturations in the 90s on room air. I discussed the assessment and plan of care with my nurse practitioner, Mahi Rai. I attest to the above note as dictated by her.
[2020-02-26] MEDS: levETIRAcetam IV 1,000 MG in SALINE 1 100ML.BAG IVPB SCH (12:05)
--- NOTE | 2020-02-26 15:28 | P.CN ---
Psychiatric Consult - . Consult date: 02/26/20 Consult:: IDENTIFYING DATA: He is a 20-year-old single male admitted to the ICU for further evaluation and treatment of a drug overdose. According to the information and medical record he and a friend were found unresponsive and did not respond to Narcan. In our ED he was obtunded. HISTORY OF PRESENT ILLNESS: I reviewed the medical record and interviewed the patient. I attempted to speak with his mother but she did not answer the phone. He was lying comfortably in the ICU with the one-to-one and attendance. He began the interview by assuring me that he did not attempt suicide. He talked about "getting high" with a friend. He alleged that he took several capsules of Neurontin. He has no recollection of events until he became fully conscious in the ICU. ED note indicates that he "supposedly took a large amount of alcohol as well as multiple muscle relaxants." Other notes indicate that he was abusing baclofen, alcohol and marijuana. His UDS on presentation to the ED was positive only for marijuana. His serum alcohol level was less than 10. He denied that he had been depressed and was having thoughts of or suicide. He denied suicidal plan or intent. He denied that he has had suicide attempts or gestures. He denied experiencing psychiatric symptoms or concerns including anxiety, obsessions, compulsions, panic attacks, hallucinations, paranoia or disturbances of thought and thinking. He denied use of drugs with the exception of marijuana. PAST PSYCHIATRIC HISTORY: He was diagnosed with ADHD when he was 4 years old and treated with psychostimulants, trazodone and apparently antipsychotic medications (he alleges he does not remember the name of all the medications that he was prescribed) until he graduated from high school. He denied a history of psychiatric hospitalizations. He only met with mental health provider through [facility] for the treatment of ADHD. PAST MEDICAL HISTORY: A history of hydrocephalus as a child with a ventral peritoneal shunt placement. The chart indicates that he may have a history of cerebral palsy and is prescribed of baclofen for spasticity.. ALLERGIES: Aripiprazole, codeine. SUBSTANCE USE HISTORY: He denied use of drugs with the exception of marijuana and alcohol. He denied that friends or family have complained him about his marijuana use. He denied the use of heroin, cocaine, methamphetamine, or opioid pain medications, sedatives, benzodiazepines and stimulants. He is never been any substance abuse treatment program. FAMILY PSYCHIATRIC/SUBSTANCE USE HISTORY: He believes that his father had history of alcohol use problems. SOCIAL HISTORY: He was born and raised in [place] by his mother. He alleged that his father was not involved in his upbringing. He graduated from high school and denied that he was in special education. 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 MENTAL STATUS EXAM: He presented as a thin casually groomed male who is laying comfortably in bed. He made eye contact and appeared to attend to the interview. Poor dentition but no prominent physical abnormalities. He isn't anxious facial expression. He was alert and oriented to person, place and time. He showed no abnormality of psychomotor activity. He had no abnormal movements. Her speech was spontaneous, halting and digressive. His affect was anxious and blunted. He denied suicidal ideation and wishes. He denied homicidal ideation. He denied feeling hopeless, helpless or worthless. He ruminated about his circumstances that this hospitalization and perseverated that he did not attempt suicide. He did not express clear ideas reference, paranoid ideation or delusions. His thinking was concrete but his associations were coherent and logical. He denied hallucinations and did not appear to be responding to internal stimuli. We completed the [facility] Orientation Memory and Concentration test. His total weighted error score was 10. He showed impairment in concentration and attention and short-term memory A total weighted error score greater than 10 is consistent with cognitive impairment. He was fully oriented to month and year. He had difficulty registering the memory phrase "Jacob Mojica, [address] [place] [address]). He correctly estimated the time and was able to count backwards from 20 to one. He was unable to name the months of year reverse order and made 3 errors when attempting recall the memory phrase. IMPRESSIONS: He is a 20-year-old single male who has history of hydrocephalus, possible cerebral palsy and ADHD who [facility] un[facility] following an overdose of medication. He repeatedly denied that the overdose was intentional. He and a friend were abusing prescription medications to get high. He contends that he only took Neurontin but the chart suggests that he had also abused baclofen, marijuana and alcohol. On cognitive screening he showed impairments with concentration, attention and short-term memory suggesting that he is not fully recovered from the overdose. PLAN: Continue with one-to-one until he is fully recovered from the overdose. Obtain collateral information from family. He may require transfer to the psychiatric unit. We'll follow.. 02/26/20 13:45 02/26/20 15:27
--- NOTE | 2020-02-26 15:28 | P.PN ---
Subjective Progress Note Date: 02/26/20 Principal diagnosis: Patient is admitted with the possible and reported overdose exact overdose medication is unknown urine drug screen was only positive for tetrahydrocannabinol, because of unresponsiveness patient was intubated for protection of airway. The friend who brought into ER later found unresponsive as well with the similar urine drug screen was subsequently intubated as well. Patient is mildly bradycardic at this time patient is on sedation with baseline settings patient is undergoing weaning trial once he is more awake after sedation vacation plan is to extubate him today. Chest x-ray from today is better than yesterday without any infiltrate no fever 02/22/2020 Patient is seen and evaluated in follow-up and remains in the ICU intubated and on mechanical vent. Weaning was attempted today although patient became extremely agitated and restless and unable to follow any commands and was reinitiated on propofol. Neurology consulted and pending at this time. Per ER notes it was suggested of possible overdose baclofen ingestion per family although unwitnessed. Testing was sent out for baclofen level although this is a send out will await report. Patient to remain sedated at this time. This morning's chest x-ray shows resolved left periHilar airspace disease. Endotracheal tube noted. 02/23/2020 As for toxicology patient appears to have overdosed on baclofen which he sharing with his friend who was also intubated at this time. Neurology evaluated the patient patient again remains on high sedation EEG showed epileptiform focus patient does have history of cerebral palsy and has been using baclofen for spasticity patient was started back on baclofen is of concern of baclofen withdrawal and patient aspirin neurology will benefit from continuous EEG monitoring. Patient was started on antiseizure medications. Patient has autonomic instability patient appears to have overdosed on baclofen alcohol and marijuana may be synthetic marijuana. Patient is presently on Versed. A she is also antipsychotic which was resumed. Patient remains on ventilator support with PEEP of 5 episode of 30% and volume of 400 set up respiratory rate of 20 bleeding or the ventilator. Patient was having episodes of agitation patient is occasionally tachycardic was started on beta nereyda. 02/24/2020 Patient sedation is bit down. 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 Patient is currently receiving EEG and is pending at this time. Neurology following. Patient continues on Keppra. Patient was febrile this morning at 101.3. Drug screen only showing positive for marijuana. Patient also remains on baclofen with concerns of possible nadeen lofen withdrawal and will closely monitor. 02/26/2020 Patient is seen in follow-up today and was recently extubated yesterday and is alert and oriented 3. Neurology following. Patient remains on Keppra and gabapentin initiated. Patient was having some generalized pain requesting something for pain. Patient also remains on oral Augmentin. Patient currently denies any suicidal or homicidal ideations and states he was not attempting to kill himself by overdosing. Patient states he was attempting to get high with smoking marijuana and taking large amounts of gabapentin. Patient is awaiting transfer out of the ICU at this time. Patient continues to have a slightly elevated white blood count at 14.8 along with intermittent low-grade fevers and will continue with antibiotics at this time. Current sodium is 137 with a potassium of 3.8 and creatinine is 0.49. PT/OT to evaluate the patient. Psychiatry consult pending at this time. Objective - Vital Signs Vital signs: Vital Signs Temp 99.2 F 02/26/20 08:00 Pulse 90 02/26/20 13:30 Resp 18 02/26/20 13:30 BP 148/98 02/26/20 08:00 Pulse Ox 95 02/26/20 08:00 Intake & Output 02/25/20 02/26/20 02/26/20 18:59 06:59 18:59 Intake Total 1764.05 1225 550 Output Total 2430 2745 960 Balance -665.95 -1520 -410 Weight 59 kg 58.5 kg Intake: IV 1150 1075 250 Dextrose 5%-0.45% NaCl 1, 625 000 ml @ 125 mls/hr IV . Q8H [facility] Rx#:[id number] Dextrose 5%-0.9% NaCl 1, 525 975 150 000 ml @ 75 mls/hr IV . [id number] [facility] Rx#:[id number] levETIRAcetam IV 1,000 mg 100 100 In Saline 1 100ml.bag @ 400 mls/hr IVPB Q12H [facility] Rx#:[id number] Intake, IV Titration 156.05 300 Amount ACETAMINOPHEN IV (For NPO 100 ) 1,000 mg In Empty Bag 1 bag @ 400 mls/hr IVPB Q6HR [facility] Rx#:[id number] Propofol 1,000 mg In 56.05 Empty Bag 1 bag @ Titrate IV .Q0M [facility] Rx#: [id number] Sodium Chloride 0.9% 1, 300 000 ml @ 75 mls/hr IV . [id number] [facility] Rx#:[id number] Oral 240 150 Tube Feeding 188 Other 30 Output: Urine 2430 2745 860 Emesis 100 Other: Voiding Method Indwelling Catheter Indwelling Catheter Indwelling Catheter # Bowel Movements 3 ABP, PAP, CO, CI - Last Documented Arterial Blood Pressure 152/85 - Exam GENERAL: 20-year-old male, awake, alert and oriented 3, recently extubated yesterday. HEENT: Pupils are round and equally reacting to light. EOMI. No scleral icterus. No conjunctival pallor. Normocephalic, atraumatic. No pharyngeal erythema. No thyromegaly. Multiple dental caries and poor dentition noted CARDIOVASCULAR: S1 and S2 present. No murmurs, rubs, or gallops. PULMONARY: Chest is clear to auscultation, no wheezing or crackles. ABDOMEN: Soft, nondistended, normoactive bowel sounds. No palpable organomegaly. MUSCULOSKELETAL: No joint swelling or deformity. EXTREMITIES: No cyanosis, or pedal edema. NEUROLOGICAL: Awake, alert and oriented 3, moving all 4 extremities, no focal deficits noted. SKIN: No rashes. - Labs CBC & Chem 7: 02/26/20 04:00 02/26/20 04:00 Labs: Abnormal Lab Results - Last 24 Hours (Table) 02/25/20 02/26/20 02/26/20 Range/Units 04:20 04:00 04:00 WBC 14.8 H (3.8-10.6) k/uL Neutrophils # 11.7 H (1.3-7.7) k/uL Monocytes # 1.2 H (0-1.0) k/uL Creatinine 0.49 L (0.66-1.25) mg/dL Glucose 106 H (74-99) mg/dL Albumin 3.4 L (3.5-5.0) g/dL Procalcitonin 0.19 H (0.02-0.09) ng/mL Microbiology - Last 24 Hours (Table) 02/25/20 03:55 Gram Stain - Preliminary Sputum Sputum Culture - Preliminary Gram Neg Bacilli 02/24/20 17:19 Blood Culture - Preliminary Blood No Growth after 24 hours Assessment and Plan Assessment: -Acute hypoxic respiratory failure, altered mental status secondary to toxic encephalopathy and acute respiratory failure is secondary to drug overdose patient was recently intubated for protection of airway. Possibility of baclofen overdose patient appears to have been undergoing baclofen withdrawals at this time. Patient was extubated yesterday, alert and oriented 3, following commands. -Epileptiform activity on the EEG patient was started on antiseizure medications patient does have history of cerebral palsy for which patient is on baclofen for rigidity. Currently remains on Keppra and neurology following. Repeat EEG shows no epileptiform activity although intermittent generalized slowing suggestive of cerebral dysfunction that can likely be seen with toxic metabolic encephalopathy or diffuse structural brain abnormality. 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
[2020-02-26] MEDS: GABAPENTIN 100 MG CAP PO SCH ×2 (16:42→20:34)
--- NOTE | 2020-02-26 16:55 | P.PN ---
Subjective Progress Note Date: 02/26/20 Patient admitted to the hospital on 02/20/2020 due to overdose on multiple medications. His friend at [facility] house was also admitted with same issue. Apparently patient overdose on baclofen, Robaxin, some alcohol and also does marijuana. Patient was extubated yesterday at 9 AM. Today patient is much more alert and awake, P a somewhat irritable, agitated. Patient completely denying any drug overdose. He states he has history of hydrocephalus and underwent some surgery at age 6-7. No evidence of craniotomy noted on the computed tomography scan. Objective - Vital Signs Vital signs: Vital Signs Temp 98.0 F 02/26/20 15:00 Pulse 70 02/26/20 15:00 Resp 15 02/26/20 15:00 BP 146/81 02/26/20 15:00 Pulse Ox 97 02/26/20 15:00 Intake & Output 02/25/20 02/26/20 02/26/20 18:59 06:59 18:59 Intake Total 1764.05 1225 550 Output Total 2430 2745 960 Balance -665.95 -1520 -410 Weight 59 kg 58.5 kg Intake: IV 1150 1075 250 Dextrose 5%-0.45% NaCl 1, 625 000 ml @ 125 mls/hr IV . Q8H [facility] Rx#:[id number] Dextrose 5%-0.9% NaCl 1, 525 975 150 000 ml @ 75 mls/hr IV . [id number] [facility] Rx#:[id number] levETIRAcetam IV 1,000 mg 100 100 In Saline 1 100ml.bag @ 400 mls/hr IVPB Q12H [facility] Rx#:[id number] Intake, IV Titration 156.05 300 Amount ACETAMINOPHEN IV (For NPO 100 ) 1,000 mg In Empty Bag 1 bag @ 400 mls/hr IVPB Q6HR [facility] Rx#:[id number] Propofol 1,000 mg In 56.05 Empty Bag 1 bag @ Titrate IV .Q0M [facility] Rx#: [id number] Sodium Chloride 0.9% 1, 300 000 ml @ 75 mls/hr IV . [id number] [facility] Rx#:[id number] Oral 240 150 Tube Feeding 188 Other 30 Output: Urine 2430 2745 860 Emesis 100 Other: Voiding Method Indwelling Catheter Indwelling Catheter Urinal # Bowel Movements 3 ABP, PAP, CO, CI - Last Documented Arterial Blood Pressure 152/85 - Exam Patient is alert and awake, speech and language functions are normal. Cranial nerves are normal. Muscle strength is normal in the arms and legs. Reflexes are symmetric and plantars withdrawal. Sensory to touch is equal. No obvious ataxia. Gait deferred. - Labs CBC & Chem 7: 02/26/20 04:00 02/26/20 04:00 Labs: Abnormal Lab Results - Last 24 Hours (Table) 02/25/20 02/26/20 02/26/20 Range/Units 04: 04:00 04:00 WBC 14.8 H (3.8-10.6) k/uL Neutrophils # 11.7 H (1.3-7.7) k/uL Monocytes # 1.2 H (0-1.0) k/uL Creatinine 0.49 L (0.66-1.25) mg/dL Glucose 106 H (74-99) mg/dL Albumin 3.4 L (3.5-5.0) g/dL Procalcitonin 0.19 H (0.02-0.09) ng/mL Microbiology - Last 24 Hours (Table) 02/25/20 03:55 Gram Stain - Preliminary Sputum Sputum Culture - Preliminary Gram Neg Bacilli 02/24/20 17:19 Blood Culture - Preliminary Blood No Growth after 24 hours Assessment and Plan Assessment: * Polysubstance abuse with drug overdose with baclofen, possibly Robaxin, some alcohol and marijuana use. * Reported childhood history of hydrocephalus and spasticity. * Status post ventilator dependent respiratory failure, now extubated today. Plan: * Decrease Keppra to 750 mg twice a day. * EEG was reviewed, which was intermittent generalized slowing. This is suggestive of intermittent generalized cerebral dysfunction, as can be seen in toxic metabolic encephalopathy due to diffuse structural brain abnormality. When compared to the EEG from 02/22/2020, there is remarkable electrographic improvement. No definitive epileptiform activity seen.. * Psychiatry following the patient.
[2020-02-26] MEDS: levETIRAcetam 250 MG TAB PO SCH (20:34)
[2020-02-27] MEDS: BACLOFEN 10 MG TAB PO SCH ×2 (08:18→16:07)
[2020-02-27] MEDS: AMOXIC-POT CLAV 875-125MG 1 EACH TAB PO SCH (08:18)
[2020-02-27] MEDS: NICOTINE 21MG/24HR PATCH TRANSDERM SCH (08:19)
[2020-02-27] MEDS: levETIRAcetam 250 MG TAB PO SCH (08:19)
[2020-02-27] MEDS: GABAPENTIN 100 MG CAP PO SCH ×2 (08:19→16:07)
[2020-02-27] MEDS: METOPROLOL TARTRATE 25 MG TAB PO SCH (08:19)
[2020-02-27] MEDS: PANTOPRAZOLE 40 MG/10 ML VIAL IV SCH (08:21)
[2020-02-27] MEDS: LORazepam 2 MG/ML INJ IV PRN (08:24)
[2020-02-27 10:36] LABS: Basophils % (A) 0 %; Eosinophils # (A) 0.1 k/uL (0-0.7); Eosinophils % (A) 1 %; HCT 43.1 % (39.0-53.0); HGB 14.4 gm/dL (13.0-17.5); Lymphocytes # (A) 1.5 k/uL (1.0-4.8); Lymphocytes % (A) 16 %; MCH 30.3 pg (25.0-35.0); MCHC 33.4 g/dL (31.0-37.0); MCV 90.7 fL (80.0-100.0); Mean Platelet Volume 6.9; Monocytes # (A) 0.9 k/uL (0-1.0); Monocytes % (A) 9 %; Neutrophils # (A) 6.5 k/uL (1.3-7.7); Neutrophils % (A) 70 %; Platelet Count 402 k/uL (150-450); RBC 4.75 m/uL (4.30-5.90); RDW 12.1 % (11.5-15.5); WBC 9.3 k/uL (3.8-10.6)
[2020-02-27 10:51] LABS: African American GFR (CKD) >90 (>60 ml/min/1.73 sqM); Anion Gap 8 mmol/L; Blood Urea Nitrogen 12 mg/dL (9-20); Calcium 8.8 mg/dL (8.4-10.2); Carbon Dioxide 27 mmol/L (22-30); Chloride 104 mmol/L (98-107); Glucose 117 mg/dL (74-99); Non-African American GFR(CKD) >90 (>60 ml/min/1.73 sqM); Potassium 3.4 mmol/L (3.5-5.1); Sodium 139 mmol/L (137-145)
[2020-02-27] MEDS ORDERED: POTASSIUM CHLORIDE ER 20 MEQ TAB.ER PO STA (12:17)
--- NOTE | 2020-02-27 12:26 | P.PN ---
Subjective Progress Note Date: 02/27/20 Principal diagnosis: Baclofen overdose The patient is seen today 02/26/2020 in follow-up in the intensive care unit. He was successfully extubated yesterday. He is currently awake and alert in no acute distress. He is maintaining good O2 saturations in the 90s on room air. He is somewhat slow to respond but appropriate. He states he did take 14 or 15 baclofen tablets on top of alcohol stating he was just "dumb". He denied any suicidal ideations. Repeat EEG reveals intermittent generalized slowing however there is remarkable electrographic improvement compared to 02/22/2020. No definitive epileptic activity seen. Blood culture reveals no growth. Sputum culture reveals no growth. White count 14.8. Hemoglobin 13.3. Sodium 137. Potassium 3.8. Creatinine 0.49. Chest x-rays improved revealing mild residual right infrahilar infiltrate. He is continued on Keppra and baclofen. Neurology remains on the case. On 02/27/2020 patient seen in follow-up on general medical floor, he is resting comfortably in bed, he is in no acute distress, is alert and oriented 3, answering questions appropriately, he states he took baclofen in order to get high and his had no suicidal ideations. Breathing is comfortable, room air pulse ox is 98%, hemodynamically stable, afebrile. Sputum culture showed Klebsiella oxytoca and Haemophilus influenza. Patient has been covered with oral Augmentin, Unasyn shortness of breath, denies any cough or congestion, clinically stable, no nausea vomiting. No episodes of seizures, patient continues on Keppra and baclofen, neurology is following. Patient has been evaluated by psychiatry who recommended one-on-one supervision until fully recovered from the overdose, possibility of transfer to the psychiatric unit after medical clearance. Objective - Vital Signs Vital signs: Vital Signs Temp 99.4 F 02/27/20 07:00 Pulse 102 H 02/27/20 08:26 Resp 17 02/27/20 08:26 BP 139/96 02/27/20 07:00 Pulse Ox 98 02/27/20 07:00 Intake & Output 02/26/20 02/27/20 02/27/20 18:59 06:59 18:59 Intake Total 910 825 Output Total 960 Balance -50 825 Weight 53.4 kg Intake: IV 250 Dextrose 5%-0.9% NaCl 1, 150 000 ml @ 75 mls/hr IV . [id number] [facility] Rx#:[id number] levETIRAcetam IV 1,000 mg 100 In Saline 1 100ml.bag @ 400 mls/hr IVPB Q12H [facility] Rx#:[id number] Intake, IV Titration 300 825 Amount Sodium Chloride 0.9% 1, 300 825 000 ml @ 75 mls/hr IV . [id number] [facility] Rx#:[id number] Oral 360 Output: Urine 860 Emesis 100 Other: Voiding Method Urinal Toilet Toilet Urinal Urinal # Voids 1 # Bowel Movements 1 ABP, PAP, CO, CI - Last Documented Arterial Blood Pressure 152/85 - Exam GENERAL EXAM: Alert, thin, 20-year-old white male room air pulse ox is 98% comfortable in no apparent distress. HEAD: Normocephalic/atraumatic. EYES: Normal reaction of pupils, equal size. Conjunctiva pink, sclera white. NOSE: Clear with pink turbinates. THROAT: No erythema or exudates. NECK: No masses, no JVD, no thyroid enlargement, no adenopathy. CHEST: No chest wall deformity. Symmetrical expansion. LUNGS: Equal air entry with no crackles, wheeze, rhonchi or dullness. CVS: Regular rate and rhythm, normal S1 and S2, no gallops, no murmurs, no rubs ABDOMEN: Soft, nontender. No hepatosplenomegaly, normal bowel sounds, no guarding or rigidity. EXTREMITIES: No clubbing, no edema, no cyanosis, 2+ pulses and upper and lower extremities. MUSCULOSKELETAL: Muscle strength and tone normal. SPINE: No scoliosis or deformity SKIN: No rashes CENTRAL NERVOUS SYSTEM: Alert and oriented -3. No focal deficits, tone is normal in all 4 extremities. PSYCHIATRIC: Alert and oriented -3. Appropriate affect. Intact judgment and insight. - Labs CBC & Chem 7: 02/27/20 10:13 02/27/20 10:13 Labs: Abnormal Lab Results - Last 24 Hours (Table) 02/27/20 Range/Units 10:13 Potassium 3.4 L (3.5-5.1) mmol/L Creatinine 0.53 L (0.66-1.25) mg/dL Glucose 117 H (74-99) mg/dL Microbiology - Last 24 Hours (Table) 02/25/20 03:55 Gram Stain - Final Sputum Sputum Culture - Final Klebsiella oxytoca Haemophilus influenzae 02/24/20 17:19 Blood Culture - Preliminary Blood No Growth after 48 hours Assessment and Plan Plan: Assessment: #1. Acute hypoxic respiratory failure secondary to an acute overdose of baclofen and alcohol, patient was admitted to the hospital on 02/20/2020, and was intubated on 02/20/2020, he was successfully weaned and extubated on 02/25/2020 #2. New onset seizures suspected secondary to baclofen withdrawal, follow-up EEG shows remarkable improvement in the generalized slowing, no epileptic seizure activity patient continues on Keppra and neurology is following #3. Chronic tobacco dependence #4. Marijuana use #5. Substance abuse Plan: Continue oral Augmentin, patient is afebrile, increase activity as tolerated, maintain safety precautions, patient has been seen by psychiatry and one-on-one supervision continues per their recommendation, no seizure activity, patient continues on Keppra and neurology is following, no respiratory difficulty, patient is on room air, maintain aspiration precautions. I performed a history & physical examination of the patient and discussed their management with my nurse practitioner, Katie Chaney. I reviewed the nurse practitioner's note and agree with the documented findings and plan of care. Lung sounds are positive for diminished breath sounds. The findings and the impression was discussed with the patient. I attest to the documentation by the nurse practitioner. Time with Patient: Less than 30
--- NOTE | 2020-02-27 13:24 | P.PN ---
Subjective Progress Note Date: 02/27/20 Patient was seen and for a follow-up. Patient is fully oriented. Wants to go home. Patient states he never had any history of idiopathic seizures. He states that he had a seizure 8 years ago, which was related to use of Abilify. Since he stopped Abilify, he never had seizures for the last 8 years. He wants to go off Keppra. Patient admitted to the hospital on 02/20/2020 due to overdose on multiple medications. His friend [facility] was also admitted with same issue. Apparently patient overdose on baclofen, Robaxin, some alcohol and also does marijuana. Patient was extubated yesterday at 9 AM. Today patient is much more alert and awake, P a somewhat irritable, agitated. Patient completely denying any drug overdose. He states he has history of hydrocephalus and underwent some surgery at age 6-7. No evidence of craniotomy noted on the computed tomography scan. Objective - Vital Signs Vital signs: Vital Signs Temp 99.4 F 02/27/20 07:00 Pulse 102 H 02/27/20 08:26 Resp 17 02/27/20 08:26 BP 139/96 02/27/20 07:00 Pulse Ox 98 02/27/20 07:00 Intake & Output 02/26/20 02/27/20 02/27/20 18:59 06:59 18:59 Intake Total 910 825 Output Total 960 Balance -50 825 Weight 53.4 kg Intake: IV 250 Dextrose 5%-0.9% NaCl 1, 150 000 ml @ 75 mls/hr IV . [id number] [facility] Rx#:[id number] levETIRAcetam IV 1,000 mg 100 In Saline 1 100ml.bag @ 400 mls/hr IVPB Q12H [facility] Rx#:[id number] Intake, IV Titration 300 825 Amount Sodium Chloride 0.9% 1, 300 825 000 ml @ 75 mls/hr IV . [id number] [facility] Rx#:[id number] Oral 360 Output: Urine 860 Emesis 100 Other: Voiding Method Urinal Toilet Toilet Urinal Urinal # Voids 1 # Bowel Movements 1 ABP, PAP, CO, CI - Last Documented Arterial Blood Pressure 152/85 - Exam Patient is alert and awake, speech and language functions are normal. Cranial nerves are normal. Muscle strength is normal in the arms and legs. Reflexes are symmetric and plantars withdrawal. Sensory to touch is equal. No obvious ataxia. Patient walks, but appears slightly unsteady. - Labs CBC & Chem 7: 02/27/20 10:13 02/27/20 10:13 Labs: Abnormal Lab Results - Last 24 Hours (Table) 02/27/20 Range/Units 10:13 Potassium 3.4 L (3.5-5.1) mmol/L Creatinine 0.53 L (0.66-1.25) mg/dL Glucose 117 H (74-99) mg/dL Microbiology - Last 24 Hours (Table) 02/25/20 03:55 Gram Stain - Final Sputum Sputum Culture - Final Klebsiella oxytoca Haemophilus influenzae 02/24/20 17:19 Blood Culture - Preliminary Blood No Growth after 48 hours Assessment and Plan Assessment: * Polysubstance abuse with drug overdose with baclofen, possibly Robaxin, some alcohol and marijuana use. * Reported childhood history of hydrocephalus and spasticity. * Status post ventilator dependent respiratory failure, now extubated today. Plan: * Patient states he never had any history of unprovoked seizures. He had 1 seizure 8 years ago, which was attributed to Abilify. At this point we will stop Keppra. * EEG was reviewed, which was intermittent generalized slowing. This is suggestive of intermittent generalized cerebral dysfunction, as can be seen in toxic metabolic encephalopathy due to diffuse structural brain abnormality. When compared to the EEG from 02/22/2020, there is remarkable electrographic improvement. No definitive epileptiform activity seen.. * Psychiatry following the patient. * Neurology will sign off. Please call neurology if any concerns.
--- NOTE | 2020-02-27 14:16 | P.CON ---
Consult Note - . Consult date: 02/27/20 Assessment/Plan:: Clinical Problems: Unintentional overdose with medication, history of ADHD, conduct disorder and bipolar disorder Interim history: I reviewed the medical record, spoke to his mother on the telephone and interviewed the patient. He demanded to leave the hospital. He kept referring to his hospitalization as "fpc time". He again denied that he had intentionally overdosed. His friend gave him a "polysubstance" that he thought was "ice" (methamphetamine). He denied again that he has history of substance use including use of methamphetamine. He denied that the overdose was a suicide attempt and denied suicidal ideation and wishes. He alleged that he can live temporarily with his brother who would help " get me back on my feet." His mother was not surprised by the overdose. She had concerns about his friend and described his friend as a "bad influence." She maintained that he does not have a history of drug abuse and drug abuse problems. She referred him to [facility] when he was 9 years old because he "wouldn't listen". He was treated several medications for the diagnosis of ADHD, conduct disorder and bipolar disorder. He stopped treatment when he was 16 years old. She affirmed that he has no history of suicide attempts or suicide gestures. Mental status exam: He presented as a disheveled appearing than young male who is irritable and argumentative. He made eye contact and appeared to attend to the interview. He had poor dentition but no prominent physical abnormalities. He had a distressed facial expression. He was restless but showed no abnormal involuntary movements. His speech was spontaneous with increased volume but normal rhythm. His affect was dysphoric, angry, irritable and anxious. He denied suicidal ideation or wishes. He denied homicidal ideation. He denied feelings of hopeless, helplessness or worthlessness. He ruminated about his hospitalization alleging that he needs to be discharge to "get on with his life." He did not express clear ideas reference, paranoid ideation or delusions. His thinking was very concrete but his associations were coherent and logical. He did not appear to be responding to internal stimuli. Assessment: He is young male who has history of ADHD, conduct disorder and possible bipolar disorder [facility] what appears to be an unintentional overdose of muscle relaxant. He is irritable and minimally cooperative. He is repeatedly demanding to leave the hospital. He denied history of substance use and his mother from that he had not used drugs until he began spending time with a friend with whom he overdose. I'm concerned about the irritability and lack of insight. He should be transferred to inpatient unit for continued observation for evaluation of underlying mental health condition. Plan: He tended with 1 until he is transferred to the psychiatric unit. He'll probably need a petition and the clinical certificate.
[2020-02-27 14:17] VITALS: BP 132/89; PULSE 89; RESP 18; TEMP 98.3
--- NOTE | 2020-02-27 14:40 | P.DS ---
Providers Date of admission: 02/20/20 21:08 Expected date of discharge: 02/27/20 Attending physician: Zulema Angulo Consults: 02/20/20 21:08 Consult Physician Stat Consulting Provider: Quentin Lopes Consult Reason/Comments: critical care Do you want consulting provider notified?: Already Contacted 02/22/20 12:57 Consult Physician Routine Consulting Provider: Amaris Mendoza Consult Reason/Comments: mental status change/overdose Do you want consulting provider notified?: Yes 02/26/20 07:51 Consult Physician Routine Consulting Provider: Jacob Queen Consult Reason/Comments: overdose Do you want consulting provider notified?: Yes Primary care physician: Stated None Hospital Course: Final diagnosis -Acute hypoxic respiratory failure, altered mental status secondary to toxic encephalopathy and acute respiratory failure is secondary to drug overdose patient was recently intubated for protection of airway -Epileptiform activity on the EEG patient was started on antiseizure medications patient does have history of cerebral palsy for which patient is on baclofen for rigidity. Currently remains on Keppra and neurology following. Repeat EEG shows no epileptiform activity although intermittent generalized slowing suggestive of cerebral dysfunction that can likely be seen with toxic metabolic encephalopathy or diffuse structural brain abnormality. 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 Patient will continue with oral Augmentin for the next 4 days and then may discontinue. Recommend repeat labs in one day to monitor potassium as it was 3.4 today. Total time taken is 35 minutes. History of present illness This is a 20-year-old male who was recently admitted with reported overdose unknown medication along with use of THC and was found to be unresponsive and was being closely monitored. Patient was intubated for protection of airway in the ICU. Possibility of baclofen overdose was assumed although toxicology reports only showed marijuana. Patient was initiated on baclofen per toxicology recommendations along with neurology for risk of baclofen withdrawal. Patient was extubated a few days later and was more responsive although continues to have hallucinations and slight agitation. Patient states they were taking unpre scribed large amount of gabapentin along with the use of alcohol and marijuana in attempts to get high and reports no suicidal ideations. Patient was seen and evaluated by psychiatry recommending inpatient psychiatric stay for continued evaluation. Patient is currently on oral Augmentin twice daily and is to continue for the next 4 days and sputum cultures were showing Haemophilus influenza along with Klebsiella oxytoca. Currently no reports of chest pain, shortness of breath, or palpitations. Patient is afebrile. No reports of nausea or vomiting and patient is tolerating diet. On exam vital signs are stable. Temp is 97.6F, pulse is 72, respirations are 18, blood pressure is 117/67, oxygen saturation is 96% on room air. Cardio S1, S2 are present. Respiratory system shows diminished breath sounds at the bases with no wheezing or rhonchi noted. Abdomen is soft, thin, and non-tender. Nervous system shows diffuse weakness. Please refer to medication reconciliation sheet for a list of medications. Patient Condition at Discharge: Stable Plan - Discharge Summary New Discharge Prescriptions: New Amoxic-Pot Clav 875-125Mg [Augmentin 875-125] 1 each PO BID 4 Days #8 tab Nicotine 21Mg/24Hr Patch [Habitrol] 1 patch TRANSDERM DAILY patch levETIRAcetam [Keppra] 750 mg PO Q12HR tab Baclofen [Lioresal] 10 mg PO TID tab Metoprolol Tartrate [Lopressor] 25 mg PO BID tab Gabapentin [Neurontin] 100 mg PO TID #9 cap Acetaminophen Tab [Tylenol] 650 mg PO Q6HR PRN tab PRN Reason: Fever and/ or Mild Pain Discharge Medication List Acetaminophen Tab [Tylenol] 650 mg PO Q6HR PRN tab 02/27/20 [Rx] Amoxic-Pot Clav 875-125Mg [Augmentin 875-125] 1 each PO BID 4 Days #8 tab 02/27/20 [Rx] Baclofen [Lioresal] 10 mg PO TID tab 02/27/20 [Rx] Gabapentin [Neurontin] 100 mg PO TID #9 cap 02/27/20 [Rx] Metoprolol Tartrate [Lopressor] 25 mg PO BID tab 02/27/20 [Rx] Nicotine 21Mg/24Hr Patch [Habitrol] 1 patch TRANSDERM DAILY patch 02/27/20 [Rx] levETIRAcetam [Keppra] 750 mg PO Q12HR tab 02/27/20 [Rx] Follow up Appointment(s)/Referral(s): None,Stated [Primary Care Provider] - 1-2 days Ambulatory/Diagnostic Orders: Basic Metabolic Panel [LAB.AMB] Time Frame: 1 Day, Location: None Selected Activity/Diet/Wound Care/Special Instructions: Patient to continue with Augmentin for 4 additional days number discontinue Repeat BMP in the morning to monitor potassium Continue with clear liquid diet and advance as tolerated Patient being transferred to inpatient psychiatric unit Discharge Disposition: TRANSFER TO PSYCH HOSP/UNIT
== END 2020-02-27 18:20 | disposition still patient (30) | DRG 917 ==
LOC: EC 19:18 → 2SICU 21:08 → 4SSUR 02-26 13:50
PROVIDERS: ADMIT Hospitalist; ATTEND Hospitalist
PROC: 5A1955Z Respiratory Ventilation, Greater than 96 Consecutive Hours (ICD-10-PCS; principal; 2020-02-20)
PROC: 0BH17EZ Insertion of Endotracheal Airway into Trachea, Via Natural or Artificial Opening (ICD-10-PCS; principal; 2020-02-20)
PROC: 06HY33Z Insertion of Infusion Device into Lower Vein, Percutaneous Approach (ICD-10-PCS; 2020-02-22)
PROC: 4A133B1 Monitoring of Arterial Pressure, Peripheral, Percutaneous Approach (ICD-10-PCS; 2020-02-22)
PROC: 04HY32Z Insertion of Monitoring Device into Lower Artery, Percutaneous Approach (ICD-10-PCS; 2020-02-22)
PROC: 4A133J1 Monitoring of Arterial Pulse, Peripheral, Percutaneous Approach (ICD-10-PCS; 2020-02-22)
DX: T42.8X1A Poisoning by antiparkinsonism drugs and other central muscle-tone depressants, accidental (unintentional), initial encounter (principal); G92 Toxic encephalopathy; J96.01 Acute respiratory failure with hypoxia; R40.2343 Coma scale, best motor response, flexion withdrawal, at hospital admission; R40.2113 Coma scale, eyes open, never, at hospital admission; R40.2213 Coma scale, best verbal response, none, at hospital admission; Z99.11 Dependence on respirator [ventilator] status; Q07.00 Arnold-Chiari syndrome without spina bifida or hydrocephalus; G40.909 Epilepsy, unspecified, not intractable, without status epilepticus; F17.200 Nicotine dependence, unspecified, uncomplicated; D72.829 Elevated white blood cell count, unspecified; F10.10 Alcohol abuse, uncomplicated; F12.10 Cannabis abuse, uncomplicated; F31.9 Bipolar disorder, unspecified; F90.9 Attention-deficit hyperactivity disorder, unspecified type; Z11.59 Encounter for screening for other viral diseases; Z88.5 Allergy status to narcotic agent; Z88.8 Allergy status to other drugs, medicaments and biological substances; Z98.2 Presence of cerebrospinal fluid drainage device
CPT/HCPCS: 31500; 36415; 36600; 70450; 71045; 80048; 80051; 80053; 80306; 80307; 80320; 80329; 80377; 81001; 82375; 82550; 82805; 83520; 83605; 83735; 83789; 84145; 84146; 85025; 85610; 85652; 86140; 87040; 87070; 87077; 87186; 87205; 87635; 93005; 94002; 94003; 94640; 95816; 96374; 96375; 99291

== ENCOUNTER 2020-02-27 18:12 | Inpatient (IN) | payer MEDICAID ==
[2020-02-27] MEDS ORDERED: MAGNESIUM HYDROXIDE 2,400 MG/10 ML CUP PO PRN (18:56)
[2020-02-27] MEDS ORDERED: LORazepam 1 MG TAB PO PRN (18:56)
[2020-02-27] MEDS ORDERED: MAG HYDROX/AL HYDROX/SIMETH 30 ML CUP PO PRN (18:56)
[2020-02-27] MEDS ORDERED: ZIPRASIDONE 20 MG VIAL IM PRN (18:56)
[2020-02-27] MEDS: GABAPENTIN 100 MG CAP PO SCH (21:12)
[2020-02-27] MEDS: AMOXIC-POT CLAV 875-125MG 1 EACH TAB PO SCH (21:12)
[2020-02-27] MEDS: levETIRAcetam 250 MG TAB PO SCH (21:13)
[2020-02-27] MEDS: METOPROLOL TARTRATE 25 MG TAB PO SCH (21:13)
[2020-02-27] MEDS: BACLOFEN 10 MG TAB PO SCH (21:13)
[2020-02-28] MEDS: levETIRAcetam 250 MG TAB PO SCH ×2 (08:41→21:16)
[2020-02-28] MEDS: AMOXIC-POT CLAV 875-125MG 1 EACH TAB PO SCH ×2 (08:41→21:16)
[2020-02-28] MEDS: GABAPENTIN 100 MG CAP PO SCH ×3 (08:41→21:16)
[2020-02-28] MEDS: BACLOFEN 10 MG TAB PO SCH ×3 (08:41→21:16)
[2020-02-28] MEDS: METOPROLOL TARTRATE 25 MG TAB PO SCH ×2 (08:41→21:16)
--- NOTE | 2020-02-28 13:51 | P.CONS ---
History of Present Illness - Reason for Consult Medical clearance - History of Present Illness Patient is a 20-year-old male who was transferred from my service to psychiatric floor as patient was having acute psychosis hallucinations. Patient was admitted to my service. Days ago for acute respiratory failure from drug overdose which is believed to be baclofen, alcohol and gabapentin overdose. Patient was subsequently extubated patient had positive EEG for seizures because of which patient was started on Keppra. Patient also treated for Augmentin aspiration pneumonia with Augmentin and sputum cultures were showing Haemophilus influenza and Klebsiella oxytoca. Patient denied any fever chills nausea vomiting cough at this time patient is feeling much better. He doesn't have hallucinations today. Review of Systems REVIEW OF SYSTEMS: CONSTITUTIONAL: No fever, no malaise, no fatigue. HEENT: No recent visual problems or hearing problems. Denied any sore throat. CARDIOVASCULAR: No chest pain, orthopnea, PND, no palpitations, no syncope. PULMONARY: No shortness of breath, no cough, no hemoptysis. GASTROINTESTINAL: No diarrhea, no nausea, no vomiting, no abdominal pain. NEUROLOGICAL: No headaches, no weakness, no numbness. HEMATOLOGICAL: Denies any bleeding or petechiae. GENITOURINARY: Denies any burning micturition, frequency, or urgency. MUSCULOSKELETAL/RHEUMATOLOGICAL: Denies any joint pain, swelling, or any muscle pain. ENDOCRINE: Denies any polyuria or polydipsia. The rest of the 14-point review of systems is negative. Past Medical History Past Medical History: No Reported History Additional Past Medical History / Comment(s): hydrocephalus History of Any Multi-Drug Resistant Organisms: None Reported Past Surgical History: No Surgical Hx Reported Additional Past Surgical History / Comment(s): lumbar lp shunt Smoking Status: Never smoker Medications and Allergies Home Medications Medication Instructions Recorded Confirmed Type Acetaminophen Tab [Tylenol] 650 mg PO Q6HR PRN tab 02/27/20 02/27/20 Rx Amoxic-Pot Clav 875-125Mg 1 each PO BID 4 Days #8 tab 02/27/20 02/27/20 Rx [Augmentin 875-125] Baclofen [Lioresal] 10 mg PO TID tab 02/27/20 02/27/20 Rx Gabapentin [Neurontin] 100 mg PO TID #9 cap 02/27/20 02/27/20 Rx Metoprolol Tartrate [Lopressor] 25 mg PO BID tab 02/27/20 02/27/20 Rx Nicotine 21Mg/24Hr Patch [Habitrol] 1 patch TRANSDERM DAILY patch 02/27/20 02/27/20 Rx levETIRAcetam [Keppra] 750 mg PO Q12HR tab 02/27/20 02/27/20 Rx Allergies Allergy/AdvReac Type Severity Reaction Status Date / Time aripiprazole [From Abilify] Allergy Unknown Verified 02/20/20 19:47 codeine Allergy Unknown Verified 02/20/20 19:47 Physical Exam Vitals: Vital Signs Temp Pulse Resp BP 02/28/20 06:59 98.9 F 116 H 14 146/77 02/27/20 18:41 98.6 F 132 H 20 141/84 Intake and Output 02/27/20 02/28/20 02/28/20 22:59 06:59 14:59 Other: Weight 52.305 kg 52.305 kg PHYSICAL EXAMINATION: GENERAL: The patient is alert and oriented x3, not in any acute distress. Well developed, well nourished. HEENT: Pupils are round and equally reacting to light. EOMI. No scleral icterus. No conjunctival pallor. Normocephalic, atraumatic. No pharyngeal erythema. No thyromegaly. CARDIOVASCULAR: S1 and S2 present. No murmurs, rubs, or gallops. PULMONARY: Chest is clear to auscultation, no wheezing or crackles. ABDOMEN: Soft, nontender, nondistended, normoactive bowel sounds. No palpable organomegaly. MUSCULOSKELETAL: No joint swelling or deformity. EXTREMITIES: No cyanosis, clubbing, or pedal edema. NEUROLOGICAL: Gross neurological examination did not reveal any focal deficits. SKIN: No rashes. Assessment and Plan Plan: -Aspiration pneumonia : continue antibiotics for 5 more days comparing total 10 day of therapy patient has Klebsiella oxytoca and the Haemophilus influenza in the sputum cultures. Patient is presently on Augmentin -Recent drug overdose on baclofen and status post extubation patient respiratory failure resolved -Peripheral neuropathy -History of [employer] shunt, hydrocephalus and had seizures during the previous aspiration continue with Keppra follow up with neurology as an outpatient patient has history of Arnold- Chiari malformation -Hallucinations, acute psychosis: Management as per primary service
--- NOTE | 2020-02-28 14:47 | P.HP ---
Psychiatric H&P - . H&P Date: 02/28/20 History & Physical: IDENTIFYING DATA: He is a 20-year-old single male presented to the emergency department unresponsive with a history of consuming a large amount of alcohol as well as muscle relaxants. HISTORY OF PRESENT ILLNESS: He was intubated and placed on a ventilatp in the emergency room and transferred to the ICU where he remained on a ventilator for 4 days. I evaluated him the day after he was extubated. He attended to interview and denied that his actions were suicide attempt. He talked about getting high with a friend. At that time, he alleged that he took several capsules Neurontin. He had no recollection of events that transpired prior to and during his hospitalization until it became fully conscious in the ICU. His UDS on presentation to the ED was positive only for marijuana. Her serum alcohol level was less than 10. I spoke with his mother on the telephone. She was surprised by the overdose. She believes that his action was a result of a bad influence by one of his recent friends. She stated he does not history of a drug or alcohol use problems. She took him to [facility] when he is 9 years old. He is having behavioral problems and "would not listen." He is treated with several medications for the diagnosis of ADHD, conduct disorder and bipolar disorder. He stopped all treatment when he turned 16. She affirmed that he had no history of suicide attempts, gestures or nonlethal self-harm. I get evaluated him when he was transferred to stepdown unit. He was acutely agitated and there were 2 aides and a nurse in attendance trying to calm him. He was demanding to leave the hospital. He referred the hospital as "skilled nursing time. He again denied that his action was an intentional overdose he took. His friend, Jonathan, gave him a substance they thought was "ice" (methamphetamine). Several times he can tried to hand me the telephone and asked me to talk with Jonathan or his brother. He talked about Jonathan being in a room "down the bejarano." During the interview today he was acutely distressed. He believes that Jonathan was because the hospital placed him in a coronavirus bath. He believes that he was in the hospital for 3 weeks for treatment of coronavirus. He talked about being tortured with tubes stuck in his arms and his grooming. He made other unusual statements. For example, he repeated that he was living at [address] [place] [address] but "it has been turned into a parking lot" since he was admitted to the hospital. He denied the need for hospitalization and demanded discharge. He now admits that he took several tablets of baclofen with his friend Jonathan. He maintained that he did not intentionally overdose. PAST PSYCHIATRIC HISTORY: At admission about he received mental health treatment during his adolescence for diagnosis of ADHD, conduct disorder and bipolar dis order. He denied history of psychiatric hospitalizations. PAST MEDICAL HISTORY: He developed hydrocephalus as a child and treated with a retroperitoneal shunt. He also has a history of cerebral palsy and a seizure disorder. He is not been compliant with his antiseizure medications. He had an EEG in the ICU that was suggestive of continued seizure activity. ALLERGIES: Aripiprazole, codeine SUBSTANCE USE HISTORY: He denied history of alcohol or substance use. This was confirmed during my conversation with his mother. FAMILY PSYCHIATRIC/SUBSTANCE USE HISTORY: He believes that his father had history of alcohol use problems. LEGAL HISTORY: Not history of legal problems. SOCIAL HISTORY: His born and raised in [facility] by his mother. His father was not involved in a separate. He first met his father when he was 11 years old. He was involved with special education services but graduated from high school. 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 He is single and has no children. He was living in [facility] prior to admission and does not believe that he can return. MENTAL STATUS EXAM: He presented as a thin casually groomed 20-year-old male with micrognathia. He made eye contact and appeared to attend to interview. He was initially restless and had difficulty remaining seated. He had no prominent physical abnormalities. Distressed facial expression. He is alert and oriented to person, place and time. His speech was spontaneous with increased rate but normal volume and rhythm. He was slightly dysarthric. His affect was labile and at times intense and appropriate. He denied suicidal ideation, wishes homicidal ideation. He denied hopelessness, helplessness or worthlessness. He ruminated about circumstances about this hospitalization. He expressed some overvalued ideas, paranoia and fragmented paranoid ideation and believes. He did not express ideas reference. His thinking was concrete and associations w ere at times not organized and coherent. He denied hallucinations and did not appear to be responding to internal stimuli. STRENGTHS: Supportive family, good physical health, history of stable emplo yment, history of stable housing WEAKNESSES: Cognitive impairment, recent drug use IMPRESSION: Is a 20-year-old male who appears to have a mild developmental disability and a history of adolescent onset behavioral problems. [facility] following an unintentional overdose of baclofen. Apparently he and a friend had taken the baclofen to "get high.". His treatment necessitated intubation and ventilation. He was acutely agitated after discharge from the ICU. He is confused about the circumstances leading to hospitalization and expressed fragmented delusional beliefs. He should be treated on an inpatient basis with combination of psychopharmacology and multimodal therapy. PRINCIPLE DIAGNOSIS: Baclofen overdose, unspecified developmental disability, history of conduct disorder and in adolescence, rule out delirium secondary to alcohol overdose, rule out bipolar illness, rule out substance use disorder RECOMMENDATION: Admitted to the psychiatric unit. Safety precautions. Consult medicine for initial physical exam and medical history. psychotherapist social worker to complete initial psychosocial assessment and coordinate discharge and aftercare services. Obtain collateral information from family. Ativan 1 mg by mouth 3 times a day when necessary for agitation ALLERGIES and anxiety. Geodon 20 mg IM twice a day for agitation or aggression. Evaluate the need for antipsychotic and/or mood stabilizing medications. Encourage participation in therapeutic groups and activities. Evaluate clinical status response to treatment daily basis. Allergies Allergy/AdvReac Type Severity Reaction Status Date / Time aripiprazole [From [facility]] Allergy Unknown Verified 02/20/20 19:47 codeine Allergy Unknown Verified 02/20/20 19:47 Vital Signs Temp 98.9 F 02/28/20 06:59 Pulse 116 H 02/28/20 06:59 Resp 14 02/28/20 06:59 BP 146/77 02/28/20 06:59 Pulse Ox Intake & Output 02/27/20 02/28/20 02/28/20 18:59 06:59 18:59 Weight 52.305 kg 52.305 kg 02/28/20 14:20
[2020-02-28] MEDS: ACETAMINOPHEN TAB 325 MG TAB PO PRN (23:55)
[2020-02-29] MEDS: GABAPENTIN 100 MG CAP PO SCH ×2 (08:40→20:35)
[2020-02-29] MEDS: AMOXIC-POT CLAV 875-125MG 1 EACH TAB PO SCH ×2 (08:40→20:34)
[2020-02-29] MEDS: levETIRAcetam 250 MG TAB PO SCH ×2 (08:40→20:34)
[2020-02-29] MEDS: BACLOFEN 10 MG TAB PO SCH ×2 (08:40→20:34)
[2020-02-29] MEDS: METOPROLOL TARTRATE 25 MG TAB PO SCH ×2 (08:40→20:35)
[2020-02-29] MEDS ORDERED: BACLOFEN 10 MG TAB PO SCH (09:45)
[2020-02-29] MEDS: ACETAMINOPHEN TAB 325 MG TAB PO PRN ×2 (15:03→21:29)
--- NOTE | 2020-02-29 15:42 | P.PN ---
Subjective Progress Note Date: 02/29/20 Principal diagnosis: Baclofen overdose, unspecified developmental disability, history of conduct disorder and in adolescence, rule out delirium secondary to baclofen overdose, rule out bipolar illness, rule out substance use disorder I reviewed the medical record, interviewed the patient and discuss his treatment and treatment plan during team meeting. He complained about his current medications alleging that he was not prescribed "any" medications prior to discharge. He specifically denied that he has a seizure disorder and alleged that he has never been prescribed seizure medications. I explained the opinion of the consulting neurologist but agreed to taper it and discontinue Neurontin and baclofen. He remains preoccupied about discharge and denied problems or concerns. He again expressed remorse over the overdose but attributes it to his friend's influence. He denied suicidal ideation, intent or plan. He denied feeling depressed. He is anxious about discharge and resuming his life. He is less confused about the duration his hospitalization, his experiences in the ICU and his experiences on the stepdown unit. He understood that he was admitted for the treatment of an overdose and he was not on a ventilator because of recurrent fibrous. The "tubes" that he thought that we had inserted into his body were IV access ports. He did not perseverate on his friend dying when "we" put him in a coronovirus bath. Objective - Vital Signs Vital signs: Vital Signs Temp 99.8 F H 02/29/20 12:00 Pulse 121 H 02/29/20 08:42 Resp 14 02/29/20 00:10 BP 121/67 02/29/20 08:42 Pulse Ox 97 02/29/20 00:10 Intake & Output 02/28/20 02/29/20 02/29/20 18:59 06:59 18:59 Weight 52.305 kg - Exam He has a thin casually dressed and groomed young male who was pleasant on approach. He made eye contact and attended to the interview. He had a distressed facial expression. He is alert and oriented to person, place and time. He showed no abnormality of psychomotor activity. Her speech was spontaneous with normal rate and rhythm. He was slightly dysarthric. His affect was dysphoric but stable and appropriate. He denied suicidal ideation, wishes and homicidal ideation. He denied feeling hopeless, helpless and worthless. He ruminated about hospitalization and indeed to be discharge. He did not express ideas reference, paranoid ideation or delusions. His thinking was concrete but his associations were coherent, logical and goal directed. Assessment and Plan Assessment: He is last confused, alert and organized than on admission. Plan: Continue inpatient treatment. Safety precautions. Taper and discontinue baclofen and Neurontin. Continue Keppra 500 twice a day until we obtain collateral information from family about his past medical history. Continue Ativan and/or Geodon for anxiety, agitation or aggression. Encouraged continued participation in therapeutic groups and activities. Evaluate clinical status response to treatment daily basis.
[2020-03-01] MEDS: IBUPROFEN 600 MG TAB PO PRN ×2 (03:31→20:17)
[2020-03-01] MEDS: AMOXIC-POT CLAV 875-125MG 1 EACH TAB PO SCH ×2 (08:05→20:16)
[2020-03-01] MEDS: levETIRAcetam 250 MG TAB PO SCH ×2 (08:06→20:17)
[2020-03-01] MEDS: BACLOFEN 10 MG TAB PO SCH ×2 (08:06→20:16)
[2020-03-01] MEDS: GABAPENTIN 100 MG CAP PO SCH ×2 (08:06→20:16)
[2020-03-01] MEDS: METOPROLOL TARTRATE 25 MG TAB PO SCH ×2 (08:07→20:17)
[2020-03-01] MEDS ORDERED: GABAPENTIN 100 MG CAP PO SCH (09:00)
--- NOTE | 2020-03-01 11:01 | P.PN ---
Progress Note - Text Progress Note Date: 03/01/20 Interval history: Patient was seen wandering the hallways and was directable and agreeable to s peak with resume writer. Patient was complaining of chronic pain and states that the ibuprofen is helping him with that. He states that his mood has been improving and he feels "100 times better than when I came in". He appears to be less irritable and states that he has been going to groups. He states that he slept throughout the night with some awakenings due to his pain. At this time patient denies any suicidal or homicidal ideations intent or plan. Denies any Auditory or visual hallucinations. Patient denies any side effects from the medications and has been compliant with meds. Mental status exam: General Appearance: Patient appears to be thin, stated age is alert, directable, and attempts to be cooperative. Fair hygiene. Behavior: No agitated behavior. Patient is calm and directable Speech: Patient's speech is fluent and nonpressured. Mood/Affect: Mood is improving, affect is congruent and constricted. Suicidality/Homicidality: Patient denies having any suicidal or homicidal ideation intent or plan. Perceptions: Patient denies any auditory or visual hallucinations. Though content/process: There is no evidence of any delusional thought content and thought process is linear and goal-directed. Preoccupied with pain and discharge. Memory and concentration: AOX3, grossly intact for the purposes of this session Judgment and insight: improving mildly Assessment/Plan: Continue with current diagnosis. Patient continues to meet criteria for inpatient psychiatric admission for symptom stabilization and safety.Patient will be maintained on current psychotropic medication regimen. Monitor for medication compliance and for any psychotropic medication side effects. Will continue to monitor ongoing response to treatment. Encouraged participation in milieu.
[2020-03-01] MEDS: ACETAMINOPHEN TAB 325 MG TAB PO PRN (17:14)
[2020-03-02] MEDS: BACLOFEN 10 MG TAB PO SCH (08:17)
[2020-03-02] MEDS: AMOXIC-POT CLAV 875-125MG 1 EACH TAB PO SCH ×2 (08:17→20:18)
[2020-03-02] MEDS: GABAPENTIN 100 MG CAP PO SCH (08:17)
[2020-03-02] MEDS: levETIRAcetam 250 MG TAB PO SCH ×2 (08:17→20:18)
[2020-03-02] MEDS: METOPROLOL TARTRATE 25 MG TAB PO SCH ×2 (08:18→20:18)
[2020-03-02] MEDS: IBUPROFEN 600 MG TAB PO PRN ×2 (08:18→20:20)
--- NOTE | 2020-03-02 09:46 | P.PN ---
Progress Note - Text Progress Note Date: 03/02/20 Interval history: Patient was seen lying in his bed this morning and was directable and agreeable to speak with news writer. Patient was complaining of chronic pain in his back however stated that the ibuprofen has been helping and it has been improving with the rest. Patient was offered x-rays of his back however patient declined them at this time. He did request the have a wheelchair however. He states that his mood has been improving and states that "I don't have a mental illness". He appears to be less irritable and states that he has been going to groups. He states that he slept throughout the night. At this time patient denies any suicidal or homicidal ideations intent or plan. Denies any Auditory or visual hallucinations. Patient denies any side effects from the medications and has been compliant with meds. Mental status exam: General Appearance: Patient appears to be thin, stated age is alert, directable, and attempts to be cooperative. Fair hygiene. Behavior: No agitated behavior. Patient is calm and directable Speech: Patient's speech is fluent and nonpressured. Mood/Affect: Mood is improving mildly, affect is congruent and constricted. Suicidality/Homicidality: Patient denies having any suicidal or homicidal ideation intent or plan. Perceptions: Patient denies any auditory or visual hallucinations. Though content/process: There is no evidence of any delusional thought content and thought process is linear and goal-directed. Preoccupied with pain and discharge. Memory and concentration: AOX3, grossly intact for the purposes of this session Judgment and insight: improving mildly Assessment/Plan: Continue with current diagnosis. Patient continues to meet criteria for inpatient psychiatric admission for symptom stabilization and safety.Patient will be maintained on current psychotropic medication regimen. Patient was offered x-rays of his back however declined at this time and wanted to continue on with symptomatic management of back pain as it is improving. Monitor for medication compliance and for any psychotropic medication side effe cts. Will continue to monitor ongoing response to treatment. Encouraged participation in milieu.
[2020-03-02] MEDS: ACETAMINOPHEN TAB 325 MG TAB PO PRN (17:03)
[2020-03-03 07:00] VITALS: RESP 18
[2020-03-03 08:28] VITALS: BP 118/72; PULSE 123
[2020-03-03] MEDS: IBUPROFEN 600 MG TAB PO PRN (08:30)
[2020-03-03] MEDS: METOPROLOL TARTRATE 25 MG TAB PO SCH (08:30)
[2020-03-03] MEDS: GABAPENTIN 100 MG CAP PO SCH (08:30)
[2020-03-03] MEDS: BACLOFEN 10 MG TAB PO SCH (08:30)
[2020-03-03] MEDS: AMOXIC-POT CLAV 875-125MG 1 EACH TAB PO SCH (08:30)
[2020-03-03] MEDS: levETIRAcetam 250 MG TAB PO SCH (08:30)
[2020-03-03 10:21] VITALS: BMI 17.4
[2020-03-03 13:46] VITALS: TEMP 97.5
--- NOTE | 2020-03-03 14:16 | P.DS ---
Providers Date of admission: 02/27/20 18:27 Attending physician: Jacob Queen MD Consults: 02/27/20 18:56 Consult Physician Routine Consulting Provider: Jake Live Consult Reason/Comments: H and P Do you want consulting provider notified?: Yes 03/03/20 08:53 Consult Physician Routine Consulting Provider: Jake Live Consult Reason/Comments: c/o right flank pain Do you want consulting provider notified?: Yes Primary care physician: Stated None - Discharge Diagnosis(es) (1) Baclofen overdose Current Visit: Yes Status: Acute Priority: High (2) Conduct disorder, adolescent onset type Current Visit: Yes Status: Chronic Priority: Medium (3) Delirium due to multiple etiologies, acute, hyperactive Current Visit: Yes Status: Acute Priority: High (4) Respiratory arrest Current Visit: No Status: Resolved Priority: High Hospital Course: He is a 20-year-old single male presented to the emergency department unresponsive with a history of consuming a large amount of alcohol as well as muscle relaxants. He was intubated and placed on a ventilatp in the emergency room and transferred to the ICU where he remained on a ventilator for 4 days. I evaluated him the day after he was extubated. He attended to interview and denied that his actions were suicide attempt. He talked about getting high with a friend. At that time, he alleged that he took several capsules Neurontin. He had no recollection of events that transpired prior to and during his hospitalization until it became fully conscious in the ICU. His UDS on presentation to the ED was positive only for marijuana. Her serum alcohol level was less than 10. I spoke with his mother on the telephone. She was surprised by the overdose. She believes that his action was a result of a bad influence by one of his recent friends. She stated he does not history of a drug or alcohol use problems. She took him to [facility] when he is 9 years old. He is having behavioral problems and "would not listen." He is treated with several medications for the diagnosis of ADHD, conduct disorder and bipolar disorder. He stopped all treatment when he turned 16. She affirmed that he had no history of suicide attempts, gestures or nonlethal self-harm. I get evaluated him when he was transferred to stepdown unit. He was acutely agitated and there were 2 aides and a nurse in attendance trying to calm him. He was demanding to leave the hospital. He referred the hospital as "half-way time. He again denied that his action was an intentional overdose he took. His friend, Jonathan, gave him a substance they thought was "ice" (methamphetamine). Several times he can tried to hand me the telephone and asked me to talk with Jonathan or his brother. He talked about Jonathan being in a room "down the bejarano." During the interview today he was acutely distressed. He believes that Jonathan was because the hospital placed him in a coronavirus bath. He believes that he was in the hospital for 3 weeks for treatment of coronavirus. He talked about being tortured with tubes stuck in his arms and his grooming. He made other unusual statements. For example, he repeated that he was living at [address] [place] [address] but "it has been turned into a parking lot" since he was admitted to the hospital. He denied the need for hospitalization and demanded discharge. He now admits that he took several tablets of baclofen with his friend Jonathan. He maintained that he did not intentionally overdose. He received mental health treatment during his adolescence for diagnosis of ADHD, conduct disorder and bipolar disorder. He denied history of psychiatric hospitalizations. We admitted him to the psychiatric unit under care of this music writer. We provided a comprehensive biopsychosocial assessment. 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 The hospitalist recommended to continue Keppra 750 mg twice a day for treatment of seizures. He was restless and irritable when he arrived on the unit. He difficulty organizing his thoughts and showed no insight or understanding his subtest brought him to the hospital. His cognition gradually improved. However, he denied this actions were suicide attempt. He denied that he history of drug abuse and attributed the overdose of baclofen to the influence of friend. We tapered and discontinued baclofen and Neurontin. We continued Keppra 700 7050 mg twice a day. He alleged she had no history of seizures although the medical record indicates such. He posed no management problem had no episodes of behavioral dyscontrol. At the time of discharge he continued show poor insight or understanding but his affect was stable and his thinking was organized. Time of discharge he presented as a thin casually groomed 20-year-old male who was pleasant on approach. He made eye contact but appeared to have difficulty attending to the interview. He had no distinguishing features or prominent physical abnormalities. He had a blunted facial expression. He showed no abnormality of psychomotor activity. His speech was spontaneous with normal rate, rhythm and volume. His affect was stable and appropriate. He denied suicidal ideation, wishes and homicidal ideation. He denied feeling hopeless, helpless or worthless. He did not express phobias, ideas reference, paranoid ideation, magical ideation or delusions. His thinking was concrete but his associations were coherent and logical. He denied hallucinations and did not appear to be responding to internal stimuli. Patient Condition at Discharge: Stable Plan - Discharge Summary New Discharge Prescriptions: Continue Nicotine 21Mg/24Hr Patch [Habitrol] 1 patch TRANSDERM DAILY patch Acetaminophen Tab [Tylenol] 650 mg PO Q6HR PRN tab PRN Reason: Fever and/ or Mild Pain Amoxic-Pot Clav 875-125Mg [Augmentin 875-125] 1 each PO BID 4 Days #4 tab levETIRAcetam [Keppra] 750 mg PO Q12HR #60 tab Metoprolol Tartrate [Lopressor] 25 mg PO BID #60 tab Discontinued Baclofen [Lioresal] 10 mg PO TID tab Gabapentin [Neurontin] 100 mg PO TID #9 cap Discharge Medication List Acetaminophen Tab [Tylenol] 650 mg PO Q6HR PRN tab 02/27/20 [Rx] Nicotine 21Mg/24Hr Patch [Habitrol] 1 patch TRANSDERM DAILY patch 02/27/20 [Rx] Amoxic-Pot Clav 875-125Mg [Augmentin 875-125] 1 each PO BID 4 Days #4 tab 03/03/20 [Rx] Metoprolol Tartrate [Lopressor] 25 mg PO BID #60 tab 03/03/20 [Rx] levETIRAcetam [Keppra] 750 mg PO Q12HR #60 tab 03/03/20 [Rx] Follow up Appointment(s)/Referral(s): [facility] [Outside] - 03/05/20 9:00 am (Telephone appointment 03/05/20 at 9:00 with Mook.) Activity/Diet/Wound Care/Special Instructions: Activity and diet as tolerated. Avoid the use of street drugs and alcohol. Take all medications as prescribed. When you are in need of refills on your medications please contact your medical provider and/or outpatient psychiatrist to have this done. Please go to scheduled outpatient appointment for aftercare treatment. If symptoms return or become worse, call the crisis line at and/or go to the nearest emergency room for evaluation. Discharge Disposition: HOME SELF-CARE
== END 2020-03-03 17:14 | disposition home or self-care (01) | DRG 885 ==
LOC: 3MHU 18:27
PROVIDERS: ADMIT Psychiatry & Neurology Psychiatry; ATTEND Psychiatry & Neurology Psychiatry
DX: F23 Brief psychotic disorder (principal); J69.0 Pneumonitis due to inhalation of food and vomit; F05 Delirium due to known physiological condition; G91.9 Hydrocephalus, unspecified; G40.909 Epilepsy, unspecified, not intractable, without status epilepticus; T42.8X1A Poisoning by antiparkinsonism drugs and other central muscle-tone depressants, accidental (unintentional), initial encounter; F31.9 Bipolar disorder, unspecified; F90.9 Attention-deficit hyperactivity disorder, unspecified type; F91.2 Conduct disorder, adolescent-onset type; G80.9 Cerebral palsy, unspecified; G89.29 Other chronic pain; G62.9 Polyneuropathy, unspecified; M54.9 Dorsalgia, unspecified; Z79.899 Other long term (current) drug therapy; Z98.2 Presence of cerebrospinal fluid drainage device; Z88.5 Allergy status to narcotic agent; Z88.8 Allergy status to other drugs, medicaments and biological substances; Z81.1 Family history of alcohol abuse and dependence

== ENCOUNTER 2020-03-18 14:46 | Emergency (ER) | payer OTHER ==
[2020-03-18 14:56] VITALS: TEMP 98.6
[2020-03-18] MEDS ORDERED: SODIUM CHLORIDE 0.9% 1,000 ML IV STA (15:17)
[2020-03-18] MEDS ORDERED: LIDOCAINE 1% INJ 10MG/ML (20 ML MDV) SQ ONE (15:18)
--- NOTE | 2020-03-18 15:23 | ED ---
General Adult HPI - General Chief complaint: Syncope Stated complaint: poss seizure Time Seen by Provider: 03/18/20 15:06 Source: EMS, RN notes reviewed Mode of arrival: EMS Limitations: no limitations - History of Present Illness Initial comments: Patient is a pleasant 20-year-old male presenting to the emergency department after episode that occurred at his friend's house. Patient admits to drinking alcohol and smoking marijuana. Patient passed out and struck his head, there was reported a shaking activity. Patient does not recall the episode at all. Patient states he just remembers being on his friends and the next thing he knows he is here. Patient states he feels fine at this point and has no complaints. Patient states minimal discomfort left side of the head where there is laceration. Patient denies any history of similar symptoms previously. Patient denies any other street drug use. - Related Data Previous Rx's Medication Instructions Recorded Acetaminophen Tab [Tylenol] 650 mg PO Q6HR PRN tab 02/27/20 Nicotine 21Mg/24Hr Patch [Habitrol] 1 patch TRANSDERM DAILY patch 02/27/20 Amoxic-Pot Clav 875-125Mg 1 each PO BID 4 Days #4 tab 03/03/20 [Augmentin 875-125] Metoprolol Tartrate [Lopressor] 25 mg PO BID #60 tab 03/03/20 levETIRAcetam [Keppra] 750 mg PO Q12HR #60 tab 03/03/20 Allergies Allergy/AdvReac Type Severity Reaction Status Date / Time aripiprazole [From Abilify] Allergy Unknown Verified 03/18/20 14:57 codeine Allergy Unknown Verified 03/18/20 14:57 Review of Systems ROS Statement: Those systems with pertinent positive or pertinent negative responses have been documented in the HPI. ROS Other: All systems not noted in ROS Statement are negative. Constitutional: Denies: fever Eyes: Denies: eye pain ENT: Denies: ear pain Respiratory: Denies: cough, dyspnea Cardiovascular: Denies: chest pain Endocrine: Denies: fatigue Gastrointestinal: Denies: abdominal pain Genitourinary: Denies: dysuria Musculoskeletal: Denies: back pain Skin: Denies: rash Neurological: Reports: as per HPI Past Medical History Past Medical History: No Reported History Additional Past Medical History / Comment(s): hydrocephalus History of Any Multi-Drug Resistant Organisms: None Reported Past Surgical History: No Surgical Hx Reported Additional Past Surgical History / Comment(s): lumbar lp shunt Past Psychological History: No Psychological Hx Reported Smoking Status: Current every day smoker Past Alcohol Use History: Rare Past Drug Use History: Marijuana General Exam Limitations: no limitations General appearance: alert, in no apparent distress Head exam: Present: other (Left eyebrow laceration) Eye exam: Present: normal appearance, PERRL, EOMI ENT exam: Present: normal oropharynx Neck exam: Present: normal inspection. Absent: tenderness Respiratory exam: Present: normal lung sounds bilaterally Cardiovascular Exam: Present: regular rate, normal rhythm GI/Abdominal exam: Present: soft. Absent: tenderness Extremities exam: Present: normal inspection, full ROM. Absent: tenderness Neurological exam: Present: alert, oriented X3, CN II-XII intact. Absent: motor sensory deficit Expanded Neurological exam: Present: protecting the airway Patient oriented to: Present: person, place, time Speech: Present: fluid speech Cranial nerves: EOM's Intact: Normal Motor strength exam: RUE: 5, LUE: 5, RLE: 5, LLE: 5 Eye Response: (4) open spontaneously Motor Response: (6) obeys commands Verbal Response: (5) oriented Psychiatric exam: Present: normal affect, normal mood Skin exam: Present: other (Left eyebrow laceration) Course Vital Signs 03/18/20 03/18/20 14:50 16:21 Temperature 98.6 F Pulse Rate 99 81 Respiratory 18 16 Rate Blood Pressure 130/74 116/74 O2 Sat by Pulse 99 99 Oximetry EKG Findings - EKG Comments: EKG Findings:: Normal sinus rhythm 90. DC 122. QRS 90. QT 354. QTC 433. Normal axis. LVH. No acute ST change. Procedures - Laceration Laceration #1 Consent Obtained: verbal consent Indication: laceration Site: face Size (cm): 3 Description: irregular Depth: simple, single layer Anesthetic Used: lidocaine 1% Anesthesia Technique: local infiltration Amount (mls): 3 Pre-repair: wound explored, irrigated extensively Type of Sutures: nylon Size of Sutures: 5-0 Number of Sutures: 4 Technique: simple, interrupted Patient Tolerated Procedure: well, no complications Medical Decision Making - Medical Decision Making patient requesting discharge home. Patient reevaluated and remained symptom- free. Patient states he was previously diagnosed with seizures however is unclear on further information regarding that. Patient states he has a prescription for Keppra at home and refuses to be provided another prescription. Patient is receptive to a dose of Keppra at this time. Patient states he does not take it. Patient is agreeable to take it at this point. - Lab Data Result diagrams: 03/18/20 15:33 03/18/20 15:33 Lab Results 03/18/20 03/18/20 03/18/20 Range/Units 15:33 15:33 15:33 WBC 7.4 (3.8-10.6) k/uL RBC 4.63 (4.30-5.90) m/uL Hgb 14.4 (13.0-17.5) gm/dL Hct 42.3 (39.0-53.0) % MCV 91.2 (80.0-100.0) fL MCH 31.1 (25.0-35.0) pg MCHC 34.1 (31.0-37.0) g/dL RDW 13.0 (11.5-15.5) % Plt Count 347 (150-450) k/uL Neutrophils % 68 % Lymphocytes % 23 % Monocytes % 6 % Eosinophils % 1 % Basophils % 1 % Neutrophils # 5.0 (1.3-7.7) k/uL Lymphocytes # 1.7 (1.0-4.8) k/uL Monocytes # 0.5 (0-1.0) k/uL Eosinophils # 0.1 (0-0.7) k/uL Basophils # 0.0 (0-0.2) k/uL PT 11.1 (9.0-12.0) sec INR 1.1 (<1.2) APTT 21.0 L (22.0-30.0) sec Sodium 139 (137-145) mmol/L Potassium 3.8 (3.5-5.1) mmol/L Chloride 105 (98-107) mmol/L Carbon Dioxide 25 (22-30) mmol/L Anion Gap 9 mmol/L BUN 10 (9-20) mg/dL Creatinine 0.83 (0.66-1.25) mg/dL Est GFR (CKD-EPI)AfAm >90 (>60 ml/min/1.73 sqM) Est GFR (CKD-EPI)NonAf >90 (>60 ml/min/1.73 sqM) Glucose 140 H (74-99) mg/dL Calcium 9.2 (8.4-10.2) mg/dL Magnesium 1.8 (1.6-2.3) mg/dL Total Bilirubin 0.3 (0.2-1.3) mg/dL AST 17 (17-59) U/L ALT 11 (4-49) U/L Alkaline Phosphatase 73 (38-126) U/L Total Protein 7.0 (6.3-8.2) g/dL Albumin 3.8 (3.5-5.0) g/dL Urine Color Urine Appearance (Clear) Urine pH (5.0-8.0) Ur Specific Fowler (1.001-1.035) Urine Protein (Negative) Urine Glucose (UA) (Negative) Urine Ketones (Negative) Urine Blood (Negative) Urine Nitrite (Negative) Urine Bilirubin (Negative) Urine Urobilinogen (<2.0) mg/dL Ur Leukocyte Esterase (Negative) Urine RBC (0-5) /hpf Urine WBC (0-5) /hpf Ur Squamous Epith Cells (0-4) /hpf Calcium Oxalate Crystal (None) /hpf Urine Bacteria (None) /hpf Hyaline Casts (0-2) /lpf Urine Mucus (None) /hpf Urine Opiates Screen (NotDetected) Ur Oxycodone Screen (NotDetected) Urine Methadone Screen (NotDetected) Ur Propoxyphene Screen (NotDetected) Ur Barbiturates Screen (NotDetected) U Tricyclic Antidepress (NotDetected) Ur Phencyclidine Scrn (NotDetected) Ur Amphetamines Screen (NotDetected) U Methamphetamines Scrn (NotDetected) U Benzodiazepines Scrn (NotDetected) Urine Cocaine Screen (NotDetected) U Marijuana (THC) Screen (NotDetected) 03/18/20 Range/Units 16:13 WBC (3.8-10.6) k/uL RBC (4.30-5.90) m/uL Hgb (13.0-17.5) gm/dL Hct (39.0-53.0) % MCV (80.0-100.0) fL MCH (25.0-35.0) pg MCHC (31.0-37.0) g/dL RDW (11.5-15.5) % Plt Count (150-450) k/uL Neutrophils % % Lymphocytes % % Monocytes % % Eosinophils % % Basophils % % Neutrophils # (1.3-7.7) k/uL Lymphocytes # (1.0-4.8) k/uL Monocytes # (0-1.0) k/uL Eosinophils # (0-0.7) k/uL Basophils # (0-0.2) k/uL PT (9.0-12.0) sec INR (<1.2) APTT (22.0-30.0) sec Sodium (137-145) mmol/L Potassium (3.5-5.1) mmol/L Chloride (98-107) mmol/L Carbon Dioxide (22-30) mmol/L Anion Gap mmol/L BUN (9-20) mg/dL Creatinine (0.66-1.25) mg/dL Est GFR (CKD-EPI)AfAm (>60 ml/min/1.73 sqM) Est GFR (CKD-EPI)NonAf (>60 ml/min/1.73 sqM) Glucose (74-99) mg/dL Calcium (8.4-10.2) mg/dL Magnesium (1.6-2.3) mg/dL Total Bilirubin (0.2-1.3) mg/dL AST (17-59) U/L ALT (4-49) U/L Alkaline Phosphatase (38-126) U/L Total Protein (6.3-8.2) g/dL Albumin (3.5-5.0) g/dL Urine Color Yellow Urine Appearance Cloudy (Clear) Urine pH 6.5 (5.0-8.0) Ur Specific Fowler 1.024 (1.001-1.035) Urine Protein 1+ H (Negative) Urine Glucose (UA) Negative (Negative) Urine Ketones Negative (Negative) Urine Blood Negative (Negative) Urine Nitrite Negative (Negative) Urine Bilirubin Negative (Negative) Urine Urobilinogen 2.0 (<2.0) mg/dL Ur Leukocyte Esterase Negative (Negative) Urine RBC 2 (0-5) /hpf Urine WBC 7 H (0-5) /hpf Ur Squamous Epith Cells <1 (0-4) /hpf Calcium Oxalate Crystal Few H (None) /hpf Urine Bacteria Rare H (None) /hpf Hyaline Casts 4 H (0-2) /lpf Urine Mucus Many H (None) /hpf Urine Opiates Screen Not Detected (NotDetected) Ur Oxycodone Screen Not Detected (NotDetected) Urine Methadone Screen Not Detected (NotDetected) Ur Propoxyphene Screen Not Detected (NotDetected) Ur Barbiturates Screen Not Detected (NotDetected) U Tricyclic Antidepress Not Detected (NotDetected) Ur Phencyclidine Scrn Not Detected (NotDetected) Ur Amphetamines Screen Not Detected (NotDetected) U Methamphetamines Scrn Not Detected (NotDetected) U Benzodiazepines Scrn Not Detected (NotDetected) Urine Cocaine Screen Not Detected (NotDetected) U Marijuana (THC) Screen Not Detected (NotDetected) - Radiology Data Radiology results: report reviewed (Computed tomography scan the brain reveals no acute process) Disposition Clinical Impression: Generalized seizure Disposition: HOME SELF-CARE Condition: Stable Instructions (If sedation given, give patient instructions): Recurrent Seizures in Adults (ED), New-Onset Seizure in Adults (ED) Additional Instructions: Please follow-up to primary care physician in the next day or 2 for recheck. Please also follow-up with your neurologist. Return for seizures, worsening or change in symptoms, or any other concerns. Suture removal in 5 days. Continue Keppra Is patient prescribed a controlled substance at d/c from ED?: No Referrals: John Whitmore MD [REFERRING] - 1-2 days Time of Disposition: 17:25
[2020-03-18 15:41] LABS: Basophils % (A) 1 %; Eosinophils # (A) 0.1 k/uL (0-0.7); Eosinophils % (A) 1 %; HCT 42.3 % (39.0-53.0); HGB 14.4 gm/dL (13.0-17.5); Lymphocytes # (A) 1.7 k/uL (1.0-4.8); Lymphocytes % (A) 23 %; MCH 31.1 pg (25.0-35.0); MCHC 34.1 g/dL (31.0-37.0); MCV 91.2 fL (80.0-100.0); Mean Platelet Volume 6.8; Monocytes # (A) 0.5 k/uL (0-1.0); Monocytes % (A) 6 %; Neutrophils % (A) 68 %; Platelet Count 347 k/uL (150-450); RBC 4.63 m/uL (4.30-5.90); WBC 7.4 k/uL (3.8-10.6)
[2020-03-18 15:51] LABS: ALT 11 U/L (4-49); AST 17 U/L (17-59); African American GFR (CKD) >90 (>60 ml/min/1.73 sqM); Albumin 3.8 g/dL (3.5-5.0); Alkaline Phosphatase 73 U/L (38-126); Anion Gap 9 mmol/L; Blood Urea Nitrogen 10 mg/dL (9-20); Calcium 9.2 mg/dL (8.4-10.2); Carbon Dioxide 25 mmol/L (22-30); Chloride 105 mmol/L (98-107); Glucose 140 mg/dL (74-99); Magnesium 1.8 mg/dL (1.6-2.3); Non-African American GFR(CKD) >90 (>60 ml/min/1.73 sqM); Potassium 3.8 mmol/L (3.5-5.1); Sodium 139 mmol/L (137-145); Total Bilirubin 0.3 mg/dL (0.2-1.3)
[2020-03-18 15:59] LABS: INR 1.1 (<1.2); Prothrombin Time 11.1 sec (9.0-12.0)
--- NOTE | 2020-03-18 16:24 | CT ---
EXAMINATION TYPE: CT brain wo con DATE OF EXAM: 03/18/2020 COMPARISON: 02/20/2020 HISTORY: Eyebrow laceration. syncope CT DLP: 1099.4 mGycm. Automated Exposure Control for Dose Reduction was Utilized. TECHNIQUE: CT scan of the head is performed without contrast. FINDINGS: There is no acute intracranial hemorrhage, mass effect, or midline shift identified. The ventricles and sulci are within normal limits in size. The globes are intact and the visualized sin uses are clear. IMPRESSION: No acute intracranial hemorrhage, mass effect, or midline shift is seen.
[2020-03-18 17:00] LABS: Appearance,Urine Cloudy (Clear); Bacteria,Urine Rare /hpf; Bilirubin,Urine Negative (Negative); Blood,Urine Negative (Negative); Calcium Oxalate Crystals,Urine Few /hpf; Color,Urine Yellow; Glucose,Urine (UA) Negative (Negative); Hyaline Casts,Urine 4 /lpf (0-2); Ketones,Urine Negative (Negative); Leukocyte Esterase,Urine Negative (Negative); Mucus,Urine Many /hpf; Nitrite,Urine Negative (Negative); PH, Urine 6.5 (5.0-8.0); Protein,Urine 1+ (Negative); RBC,Urine 2 /hpf (0-5); Specific Gravity,Urine 1.024 (1.001-1.035); Squamous Epithelial Cell,Urine <1 /hpf (0-4); WBC,Urine 7 /hpf (0-5)
[2020-03-18 17:03] LABS: Amphetamine Screen,Urine Not Detected (NotDetected); Barbiturate Screen,Urine Not Detected (NotDetected); Benzodiazepines Screen,Urine Not Detected (NotDetected); Cocaine Screen,Urine Not Detected (NotDetected); Methadone Screen, Urine Not Detected (NotDetected); Opiate Screen,Urine Not Detected (NotDetected); Oxycodone Screen, Urine Not Detected (NotDetected); Phencyclidine Screen,Urine Not Detected (NotDetected); Tricyclic Antidepressant,Urine Not Detected (NotDetected); Urn Cannabinoid Scrn Not Detected (NotDetected)
[2020-03-18] MEDS ORDERED: levETIRAcetam 500 MG TAB PO STA (17:25)
[2020-03-18 17:44] VITALS: BP 119/78; PULSE 98; RESP 18
== END 2020-03-18 17:44 | disposition home or self-care (01) ==
LOC: EC 14:46
DX: G40.409 Other generalized epilepsy and epileptic syndromes, not intractable, without status epilepticus (principal); S01.112A Laceration without foreign body of left eyelid and periocular area, initial encounter; F12.90 Cannabis use, unspecified, uncomplicated; F17.200 Nicotine dependence, unspecified, uncomplicated; Z88.8 Allergy status to other drugs, medicaments and biological substances; Z88.5 Allergy status to narcotic agent; Z86.79 Personal history of other diseases of the circulatory system; W22.8XXA Striking against or struck by other objects, initial encounter; Y92.89 Other specified places as the place of occurrence of the external cause
CPT/HCPCS: 82075; 36415; 93005; 80053; 83735; 85025; 85610; 85730; 81001; 80306; 70450; 99285; 96360; 96361; 12013; J2001

== ENCOUNTER 2020-04-14 18:39 | Emergency (ER) | payer OTHER ==
--- NOTE | 2020-04-14 19:38 | CT ---
EXAMINATION TYPE: CT brain wo con DATE OF EXAM: 04/14/2020 COMPARISON: 03/18/2020 HISTORY: Blurry vision, shunt CT DLP: 1087.4 mGycm Automated exposure control for dose reduction was used. Ventricles have normal size. There is no mass effect nor midline shift. There is no sign of intracran ial hemorrhage. The calvarium is intact. There is no evidence of cerebral edema. Skull base is intact . IMPRESSION: Negative unenhanced head CT scan. No change.
--- NOTE | 2020-04-14 19:52 | XR ---
EXAMINATION TYPE: XR abdomen 1V DATE OF EXAM: 04/14/2020 COMPARISON: 06/14/2013 HISTORY: Evaluate shunt TECHNIQUE: Single view FINDINGS: Bowel gas pattern is normal. There is no sign of intestinal obstruction or pneumoperitoneum . Fecal pattern is normal. There is no evidence of a mass. There is some tubing over the pelvis. Tubi ng appears to have the tip at the spinal canal at the inferior endplate of L4 and the other end of th e tubing is in the pelvis. There is redundancy of the tubing. There is some lumbar dextroscoliosis un changed. IMPRESSION: Tubing in the abdomen is not changed significantly compared to old exam. Nonacute abdomen .
[2020-04-14 20:11] LABS: Basophils # (A) 0.1 k/uL (0-0.2); Basophils % (A) 1 %; Eosinophils # (A) 0.2 k/uL (0-0.7); Eosinophils % (A) 2 %; HCT 47.7 % (39.0-53.0); HGB 15.8 gm/dL (13.0-17.5); Lymphocytes % (A) 32 %; MCH 30.4 pg (25.0-35.0); MCHC 33.1 g/dL (31.0-37.0); MCV 91.7 fL (80.0-100.0); Mean Platelet Volume 7.2; Monocytes # (A) 0.6 k/uL (0-1.0); Monocytes % (A) 6 %; Neutrophils # (A) 5.5 k/uL (1.3-7.7); Neutrophils % (A) 58 %; Platelet Count 361 k/uL (150-450); RDW 13.5 % (11.5-15.5); WBC 9.6 k/uL (3.8-10.6)
[2020-04-14 20:23] LABS: ALT 9 U/L (4-49); AST 21 U/L (17-59); African American GFR (CKD) >90 (>60 ml/min/1.73 sqM); Albumin 4.3 g/dL (3.5-5.0); Alkaline Phosphatase 82 U/L (38-126); Anion Gap 9 mmol/L; Blood Urea Nitrogen 11 mg/dL (9-20); Calcium 9.5 mg/dL (8.4-10.2); Carbon Dioxide 25 mmol/L (22-30); Chloride 104 mmol/L (98-107); Glucose 95 mg/dL (74-99); Non-African American GFR(CKD) >90 (>60 ml/min/1.73 sqM); Potassium 4.3 mmol/L (3.5-5.1); Sodium 138 mmol/L (137-145); Total Bilirubin 0.6 mg/dL (0.2-1.3); Total Protein 7.4 g/dL (6.3-8.2)
--- NOTE | 2020-04-14 20:52 | ED ---
General Adult HPI - General Chief complaint: Neuro Symptoms/Deficit Stated complaint: blurry vision/tired Time Seen by Provider: 04/14/20 19:13 Source: patient Mode of arrival: ambulatory Limitations: no limitations - History of Present Illness Initial comments: 20-year-old male presenting today for chief complaint of blurred vision, fatigue since starting Keppra. Patient states ever since he started Keppra afternoon ICU admission for an unintentional baclofen overdose he states that he has felt fatigued and has some intermittent blurred vision denies any current blurred vision. Patient does have a shunt for hydrocephalus. Pt dneies fevers, heada lily, nausea, diplopia. Patient states that he is sure it is related to the keppra and does not want to be on a daily medications Patient has attempted to discontinue the keppra nad then had a seizure and was here for evaluatino. Patient denies seizure activity since, states he is compliant with medication. She denies a weakness sensation deficits speech changes vision loss gait changes. Patient has no additional complaints remaining review of systems negative upon arrival patient appears well signs of acute distress. - Related Data Previous Rx's Medication Instructions Recorded Acetaminophen Tab [Tylenol] 650 mg PO Q6HR PRN tab 02/27/20 Nicotine 21Mg/24Hr Patch [Habitrol] 1 patch TRANSDERM DAILY patch 02/27/20 Amoxic-Pot Clav 875-125Mg 1 each PO BID 4 Days #4 tab 03/03/20 [Augmentin 875-125] Metoprolol Tartrate [Lopressor] 25 mg PO BID #60 tab 03/03/20 levETIRAcetam [Keppra] 750 mg PO Q12HR #60 tab 03/03/20 Allergies Allergy/AdvReac Type Severity Reaction Status Date / Time aripiprazole [From Abilify] Allergy Unknown Verified 04/14/20 18:50 codeine Allergy Unknown Verified 04/14/20 18:50 Review of Systems ROS Statement: Those systems with pertinent positive or pertinent negative responses have been documented in the HPI. ROS Other: All systems not noted in ROS Statement are negative. Past Medical History Past Medical History: Seizure Disorder Additional Past Medical History / Comment(s): hydrocephalus History of Any Multi-Drug Resistant Organisms: None Reported Past Surgical History: No Surgical Hx Reported Additional Past Surgical History / Comment(s): lumbar lp shunt Past Psychological History: No Psychological Hx Reported Smoking Status: Current every day smoker Past Alcohol Use History: None Reported Past Drug Use History: Marijuana General Exam - General Exam Comments Initial Comments: General: The patient is awake and alert, in no distress, and does not appear acutely ill. Eye: +3 mmm pupils are equal, round and reactive to light, extra-ocular movements are intact. No nystagmus. There is normal conjunctiva bilaterally. No signs of icterus. Ears, nose, mouth and throat: There are moist mucous membranes and no oral lesions. Neck: The neck is supple, there is no tenderness or JVD. Cardiovascular: There is a regular rate and rhythm. No murmur, rub or gallop is appreciated. Respiratory: Lungs are clear to auscultation, respirations are non-labored, breath sounds are equal. No wheezes, stridor, rales, or rhonchi. Musculoskeletal: Normal ROM, no tenderness. Strength 5/5of the UE and LE b/l. Sensation intact of the UE and LE b/l. Pulses equal bilaterally 2+. Neurological: A&O x 3. CN II-XII intact, There are no obvious motor or sensory deficits. Coordination appears grossly intact. Speech is normal. Skin: Skin is warm and dry and no rashes or lesions are noted. Psychiatric: Cooperative, appropriate mood & affect, normal judgment. Limitations: no limitations Course Vital Signs 04/14/20 04/14/20 18:50 20:55 Temperature 98.7 F 98.0 F Pulse Rate 63 61 Respiratory 18 16 Rate Blood Pressure 130/77 118/73 O2 Sat by Pulse 100 100 Oximetry Medical Decision Making - Medical Decision Making 20yo male presenting for intermittent blurred vision of the cheeks and starting Keppra. Patient is no focal neurological deficits. Visual acuitydeficit. Normal eye exam. No focal neurological deficits. No shunt changes. CT brain no signs of increased ICP. Patient has no FERRARA/Nausea. No fevers. I discussed the case attending provider Dr. Sebastian at this time feel patient is stable for discharge with routine follow-up with neurology in the next 1-2 weeks. Patient is agreeable to this care plan and discharge at this time. If symptoms become increased/persistent, develop fevers/FERRARA/vomiting is to immediately return to the ER> - Lab Data Result diagrams: 04/14/20 19:22 04/14/20 19:22 Lab Results 04/14/20 04/14/20 Range/Units 19:22 19:22 WBC 9.6 (3.8-10.6) k/uL RBC 5.20 (4.30-5.90) m/uL Hgb 15.8 (13.0-17.5) gm/dL Hct 47.7 (39.0-53.0) % MCV 91.7 (80.0-100.0) fL MCH 30.4 (25.0-35.0) pg MCHC 33.1 (31.0-37.0) g/dL RDW 13.5 (11.5-15.5) % Plt Count 361 (150-450) k/uL Neutrophils % 58 % Lymphocytes % 32 % Monocytes % 6 % Eosinophils % 2 % Basophils % 1 % Neutrophils # 5.5 (1.3-7.7) k/uL Lymphocytes # 3.0 (1.0-4.8) k/uL Monocytes # 0.6 (0-1.0) k/uL Eosinophils # 0.2 (0-0.7) k/uL Basophils # 0.1 (0-0.2) k/uL Sodium 138 (137-145) mmol/L Potassium 4.3 (3.5-5.1) mmol/L Chloride 104 (98-107) mmol/L Carbon Dioxide 25 (22-30) mmol/L Anion Gap 9 mmol/L BUN 11 (9-20) mg/dL Creatinine 0.70 (0.66-1.25) mg/dL Est GFR (CKD-EPI)AfAm >90 (>60 ml/min/1.73 sqM) Est GFR (CKD-EPI)NonAf >90 (>60 ml/min/1.73 sqM) Glucose 95 (74-99) mg/dL Calcium 9.5 (8.4-10.2) mg/dL Total Bilirubin 0.6 (0.2-1.3) mg/dL AST 21 (17-59) U/L ALT 9 (4-49) U/L Alkaline Phosphatase 82 (38-126) U/L Total Protein 7.4 (6.3-8.2) g/dL Albumin 4.3 (3.5-5.0) g/dL Disposition Clinical Impression: Blurred vision, Fatigue Disposition: HOME SELF-CARE Condition: Good Instructions (If sedation given, give patient instructions): Blurred Vision (ED) Additional Instructions: Please use medication as discussed. Please follow-up with family doctor in the next 2 days, seek primary neurologist for follow-up, recommend outpatient eye exam. Please return to emergency room if the symptoms increase or worsen or for any other concerns. Is patient prescribed a controlled substance at d/c from ED?: No Referrals: None,Stated [Primary Care Provider] - 1-2 days Mariama Rene MD [Medical Doctor] - 1-2 days Daniel Apodaca DO [STAFF PHYSICIAN] - 1-2 days Time of Disposition: 20:52
[2020-04-14 21:00] VITALS: BP 118/73; PULSE 61; RESP 16; TEMP 98
== END 2020-04-14 21:03 | disposition home or self-care (01) ==
LOC: EC 18:39
DX: H53.8 Other visual disturbances (principal); R53.83 Other fatigue; G40.909 Epilepsy, unspecified, not intractable, without status epilepticus; Z79.899 Other long term (current) drug therapy; F17.200 Nicotine dependence, unspecified, uncomplicated; Z88.5 Allergy status to narcotic agent; Z88.8 Allergy status to other drugs, medicaments and biological substances; Z98.2 Presence of cerebrospinal fluid drainage device; Z86.69 Personal history of other diseases of the nervous system and sense organs
CPT/HCPCS: 36415; 70450; 74018; 80053; 85025; 99284

== ENCOUNTER 2021-07-27 11:31 | Emergency (ER) | payer OTHER ==
[2021-07-27 11:51] VITALS: BP 103/61; PULSE 67; RESP 18; TEMP 98.6
[2021-07-27] MEDS ORDERED: ORPHENADRINE 30 MG/ML 2 ML VIAL IM STA (12:13)
[2021-07-27] MEDS ORDERED: KETOROLAC 15 MG/ML 1 ML VIAL IM STA (12:14)
--- NOTE | 2021-07-27 12:50 | ED ---
Back Pain HPI - General Chief Complaint: Back Pain/Injury Stated Complaint: back pain Time Seen by Provider: 07/27/21 12:06 Source: patient, RN notes reviewed Limitations: no limitations - History of Present Illness Initial Comments: Patient is a 21-year-old male that presents emergency department complaining of upper mid back pain. He denied any injury or trauma to his back. He was otherwise well-appearing 21-year-old male in no apparent distress. He notes he does have a history of scoliosis does not follow-up with anybody up this way. He denied any chest pain first breath headache nausea vomiting diarrhea constipation fever fatigue chills. - Related Data Previous Rx's Medication Instructions Recorded Acetaminophen Tab [Tylenol] 650 mg PO Q6HR PRN tab 02/27/20 Nicotine 21Mg/24Hr Patch [Habitrol] 1 patch TRANSDERM DAILY patch 02/27/20 Amoxic-Pot Clav 875-125Mg 1 each PO BID 4 Days #4 tab 03/03/20 [Augmentin 875-125] Metoprolol Tartrate [Lopressor] 25 mg PO BID #60 tab 03/03/20 levETIRAcetam [Keppra] 750 mg PO Q12HR #60 tab 03/03/20 Allergies Allergy/AdvReac Type Severity Reaction Status Date / Time aripiprazole [From Abilify] Allergy Unknown Verified 07/27/21 11:51 codeine Allergy Unknown Verified 07/27/21 11:51 Review of Systems ROS Statement: Those systems with pertinent positive or pertinent negative responses have been documented in the HPI. ROS Other: All systems not noted in ROS Statement are negative. Past Medical History Past Medical History: Seizure Disorder Additional Past Medical History / Comment(s): hydrocephalus History of Any Multi-Drug Resistant Organisms: None Reported Past Surgical History: No Surgical Hx Reported Additional Past Surgical History / Comment(s): lumbar lp shunt Past Psychological History: No Psychological Hx Reported Smoking Status: Current every day smoker Past Alcohol Use History: None Reported Past Drug Use History: None Reported, Marijuana General Exam Limitations: no limitations General appearance: alert, in no apparent distress Head exam: Present: atraumatic, normocephalic, normal inspection Eye exam: Present: normal appearance, PERRL, EOMI. Absent: scleral icterus, conjunctival injection, periorbital swelling ENT exam: Present: normal exam, mucous membranes moist Neck exam: Present: normal inspection Respiratory exam: Present: normal lung sounds bilaterally. Absent: respiratory distress, wheezes, rales, rhonchi, stridor Cardiovascular Exam: Present: regular rate, normal rhythm, normal heart sounds. Absent: systolic murmur, diastolic murmur, rubs, gallop, clicks Extremities exam: Present: normal inspection, full ROM, normal capillary refill. Absent: tenderness, pedal edema, joint swelling, calf tenderness Back exam: Present: normal inspection, other (Patient did have obvious scoliosis with minimal tenderness along the paraspinal muscles of the thoracic spine.) Neurological exam: Present: alert, oriented X3 Psychiatric exam: Present: normal affect, normal mood Skin exam: Present: warm, dry, intact, normal color. Absent: rash Course Vital Signs 07/27/21 11:48 Temperature 98.6 F Pulse Rate 67 Respiratory 18 Rate Blood Pressure 103/61 O2 Sat by Pulse 99 Oximetry Medical Decision Making - Medical Decision Making 21-year-old male complaining of muscle pain and tenderness in the upper back, history of scoliosis. 15 mg of Toradol, 60 mg of Norflex ordered. Patient did report to nurse that he just wanted a work note for today. Case discussed with Dr. Morocho, patient discharge home. Disposition Clinical Impression: Mechanical back pain Disposition: HOME SELF-CARE Condition: Stable Instructions (If sedation given, give patient instructions): Acute Low Back Pain (ED) Additional Instructions: Please return to the Emergency Department if symptoms worsen or any other concerns. Is patient prescribed a controlled substance at d/c from ED?: No Referrals: None,Stated [Primary Care Provider] - 1-2 days Time of Disposition: 12:50
== END 2021-07-27 13:04 | disposition home or self-care (01) ==
LOC: EC 11:31
DX: M54.6 Pain in thoracic spine (principal); F17.200 Nicotine dependence, unspecified, uncomplicated; Z88.5 Allergy status to narcotic agent; Z88.8 Allergy status to other drugs, medicaments and biological substances
CPT/HCPCS: 96372 ×2; 99283; J2360; J1885

== ENCOUNTER 2021-09-21 07:54 | Emergency (ER) | payer OTHER ==
[2021-09-21 08:08] VITALS: BP 123/69; PULSE 85; RESP 18; TEMP 98.2
--- NOTE | 2021-09-21 08:41 | XR ---
EXAMINATION TYPE: XR thoracic spine complete DATE OF EXAM: 09/21/2021 CLINICAL HISTORY: pain TECHNIQUE: Frontal, lateral, and swimmer's view of thoracic spine are obtained. COMPARISON: None. FINDINGS: Moderate scoliotic curvature convex to the left. Thoracic spine show satisfactory alignment without evidence of acute fracture or dislocation. Vertebral body heights are preserved. Disc space s are well preserved. Visualized ribs are unremarkable. IMPRESSION: No acute fracture or dislocation is seen in the thoracic spine. ICD 10 NO FRACTURE, INIT IAL EVALUATION
--- NOTE | 2021-09-21 09:31 | ED ---
Back Pain HPI - General Chief Complaint: Back Pain/Injury Stated Complaint: back pain Time Seen by Provider: 09/21/21 08:39 Source: patient, RN notes reviewed Limitations: no limitations - History of Present Illness Initial Comments: 21-year-old male presents emergency from chief complaint of back pain. Patient states he has known scoliosis. Patient states that he was lifting some stuff and pulled a muscle. Patient states his just sore denies any bowel bladder incontinence and no saddle anesthesias no shortness of breath no other complaints. - Related Data Previous Rx's Medication Instructions Recorded Acetaminophen Tab [Tylenol] 650 mg PO Q6HR PRN tab 02/27/20 Nicotine 21Mg/24Hr Patch [Habitrol] 1 patch TRANSDERM DAILY patch 02/27/20 Amoxic-Pot Clav 875-125Mg 1 each PO BID 4 Days #4 tab 03/03/20 [Augmentin 875-125] Metoprolol Tartrate [Lopressor] 25 mg PO BID #60 tab 03/03/20 levETIRAcetam [Keppra] 750 mg PO Q12HR #60 tab 03/03/20 Ibuprofen [Motrin] 600 mg PO Q8HR PRN #20 tab 09/21/21 Allergies Allergy/AdvReac Type Severity Reaction Status Date / Time aripiprazole [From Abilify] Allergy Unknown Verified 09/21/21 08:05 codeine Allergy Unknown Verified 09/21/21 08:05 Review of Systems ROS Statement: Those systems with pertinent positive or pertinent negative responses have been documented in the HPI. ROS Other: All systems not noted in ROS Statement are negative. Past Medical History Past Medical History: Seizure Disorder Additional Past Medical History / Comment(s): hydrocephalus History of Any Multi-Drug Resistant Organisms: None Reported Past Surgical History: No Surgical Hx Reported Additional Past Surgical History / Comment(s): lumbar lp shunt Past Psychological History: No Psychological Hx Reported Smoking Status: Former smoker Past Alcohol Use History: None Reported Past Drug Use History: Marijuana General Exam Limitations: no limitations General appearance: alert, in no apparent distress Head exam: Present: atraumatic, normocephalic, normal inspection Neck exam: Present: normal inspection, full ROM. Absent: tenderness, meningismus, lymphadenopathy Respiratory exam: Present: normal lung sounds bilaterally. Absent: respiratory distress, wheezes, rales, rhonchi, stridor Cardiovascular Exam: Present: regular rate, normal rhythm, normal heart sounds. Absent: systolic murmur, diastolic murmur, rubs, gallop, clicks GI/Abdominal exam: Present: soft, normal bowel sounds. Absent: distended, tenderness, guarding, rebound, rigid Extremities exam: Present: other (Lower extremity strength equal bilaterally ne urovascular intact) Back exam: Present: full ROM, tenderness (Right thoracic), muscle spasm, paraspinal tenderness. Absent: normal inspection (Scoliosis noted), vertebral tenderness Neurological exam: Present: reflexes normal. Absent: motor sensory deficit Course Vital Signs 09/21/21 08:05 Temperature 98.2 F Pulse Rate 85 Respiratory 18 Rate Blood Pressure 123/69 O2 Sat by Pulse 99 Oximetry Medical Decision Making - Medical Decision Making X-ray shows evidence of scoliosis otherwise unremarkable be discharged stable condition with thoracic strain no red flag symptoms Disposition Clinical Impression: Strain of thoracic back region Disposition: HOME SELF-CARE Condition: Stable Instructions (If sedation given, give patient instructions): Thoracic Back Strain (ED) Additional Instructions: Please return to the Emergency Department if symptoms worsen or any other concerns. Prescriptions: Ibuprofen [Motrin] 600 mg PO Q8HR PRN #20 tab PRN Reason: Pain Is patient prescribed a controlled substance at d/c from ED?: No Referrals: None,Stated [Primary Care Provider] - 1-2 days Time of Disposition: 09:31
== END 2021-09-21 09:40 | disposition home or self-care (01) ==
LOC: EC 07:54
DX: S29.012A Strain of muscle and tendon of back wall of thorax, initial encounter (principal); Z87.891 Personal history of nicotine dependence; Z88.5 Allergy status to narcotic agent; Z88.8 Allergy status to other drugs, medicaments and biological substances; X50.0XXA Overexertion from strenuous movement or load, initial encounter; Y93.89 Activity, other specified
CPT/HCPCS: 72072; 99283

== ENCOUNTER 2022-02-04 06:59 | Emergency (ER) | payer OTHER ==
[2022-02-04 07:13] VITALS: RESP 16
--- NOTE | 2022-02-04 08:06 | ED ---
General Adult HPI - General Chief complaint: Recheck/Abnormal Lab/Rx Stated complaint: back pain Time Seen by Provider: 02/04/22 07:01 Source: patient Mode of arrival: ambulatory Limitations: no limitations - History of Present Illness Initial comments: Dictation was produced using [employer] dictation software. please excuse any grammatical, word or spelling errors. Chief Complaint: Patient is a 22-year-old male presents to the emergency department for redness and pain over previous lumbar drain site History of Present Illness: To 22-year-old male when he was between 4 and 6 years of age he had a lumbar shunt placed. 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 He has had multiple revisions as a pediatric patient. His been relatively asymptomatic at that site for years. 2 weeks ago he feels like he may have scratched at work and since then its been slightly red. He denies any drainage. Denies any fever or constitutional symptoms. No numbness any paresthesias. Denies any headaches. States that the site is been red. At 145 this morning it seemed like it was much more red than usual. Does not have any exacerbation of pain with movement. The ROS documented in this emergency department record has been reviewed and confirmed by me. Those systems with pertinent positive or negative responses have been documented in the HPI. All other systems are other negative and/or noncontributory. PHYSICAL EXAM: General Impression: Alert and oriented x3, not in acute distress HEENT: Normocephalic atraumatic, extra-ocular movements intact, pupils equal and reactive to light bilaterally, mucous membranes moist. Cardiovascular: Heart regular rate and rhythm Chest: Able to complete full sentences, no retractions, no tachypnea Abdomen: abdomen soft, non-tender, non-distended, no organomegaly Musculoskeletal: Pulses present and equal in all extremities, no peripheral edema Motor: no focal deficits noted Neurological: CN II-XII grossly intact, no focal motor or sensory deficits noted Skin: There is a clean dry intact surgical site at his right lower lumbar soft tissue. There is minimal redness around the scar. Nonindurated. No drainage. Psych: Normal affect and mood ED course: 22-year-old male presents emergency Department with palpable tenderness and redness to previous lumbar drain site placed several years ago. Vital signs upon arrival are within acceptable limits. Physical examination is benign aside for some very mild redness at the site. Patient denies any leakage. Laboratory evaluation obtained. CBC and metabolic panel is unremarkable. Inflammatory markers are negative. CT of the abdomen and pelvis and lumbar spine was obtained showing perhaps mild inflammation around the adipose tissue overlying the catheter. Patient reevaluated at bedside. In stable medical condition at this point the redness is likely from some slight skin abrasion. There is no evidence to suggest infection or issue with the lumbar shunt. Patient reevaluated bedside at 12:00 and found with stable medical condition his discharge and advised to follow-up with PCP. No leukocytosis. CBC is unremarkable. Lumbar spine CT showed mild edema in the subcutaneous adipose layer overlying the catheter on axial image #59. There is no abnormal fluid collection. No acute issues with the abdomen and pelvis. - Related Data Home Medications Medication Instructions Recorded Confirmed No Known Home Medications 02/04/22 02/04/22 Allergies Allergy/AdvReac Type Severity Reaction Status Date / Time aripiprazole [From Abilify] Allergy Rash/Hives Verified 02/04/22 08:35 codeine Allergy Rash/Hives Verified 02/04/22 08:35 Review of Systems ROS Statement: Those systems with pertinent positive or pertinent negative responses have been documented in the HPI. ROS Other: All systems not noted in ROS Statement are negative. Past Medical History Past Medical History: Seizure Disorder Additional Past Medical History / Comment(s): hydrocephalus History of Any Multi-Drug Resistant Organisms: None Reported Past Surgical History: No Surgical Hx Reported Additional Past Surgical History / Comment(s): lumbar lp shunt Past Psychological History: No Psychological Hx Reported Smoking Status: Former smoker Past Alcohol Use History: None Reported Past Drug Use History: Marijuana General Exam Limitations: no limitations Course Vital Signs 02/04/22 07:10 Temperature 98.1 F Pulse Rate 79 Respiratory 16 Rate Blood Pressure 124/75 O2 Sat by Pulse 100 Oximetry Medical Decision Making - Lab Data Result diagrams: 02/04/22 08:21 02/04/22 08:21 Lab Results 02/04/22 02/04/22 Range/Units 08:21 08:21 WBC 9.3 (3.8-10.6) k/uL RBC 5.07 (4.30-5.90) m/uL Hgb 15.5 (13.0-17.5) gm/dL Hct 46.9 (39.0-53.0) % MCV 92.5 (80.0-100.0) fL MCH 30.6 (25.0-35.0) pg MCHC 33.1 (31.0-37.0) g/dL RDW 11.8 (11.5-15.5) % Plt Count 326 (150-450) k/uL MPV 7.0 Neutrophils % 61 % Lymphocytes % 28 % Monocytes % 8 % Eosinophils % 1 % Basophils % 1 % Neutrophils # 5.7 (1.3-7.7) k/uL Lymphocytes # 2.5 (1.0-4.8) k/uL Monocytes # 0.8 (0-1.0) k/uL Eosinophils # 0.1 (0-0.7) k/uL Basophils # 0.1 (0-0.2) k/uL ESR 2 (0-15) mm/hr Sodium 138 (137-145) mmol/L Potassium 4.8 (3.5-5.1) mmol/L Chloride 101 (98-107) mmol/L Carbon Dioxide 30 (22-30) mmol/L Anion Gap 7 mmol/L BUN 15 (9-20) mg/dL Creatinine 0.79 (0.66-1.25) mg/dL Est GFR (CKD-EPI)AfAm >90 (>60 ml/min/1.73 sqM) Est GFR (CKD-EPI)NonAf >90 (>60 ml/min/1.73 sqM) Glucose 87 (74-99) mg/dL Calcium 9.9 (8.4-10.2) mg/dL C-Reactive Protein <0.5 (<1.0) mg/dL Disposition Clinical Impression: Pain at surgical site Disposition: HOME SELF-CARE Condition: Good Is patient prescribed a controlled substance at d/c from ED?: No Referrals: None,Stated [Primary Care Provider] - 1-2 days
[2022-02-04 08:32] LABS: Basophils # (A) 0.1 k/uL (0-0.2); Basophils % (A) 1 %; Eosinophils # (A) 0.1 k/uL (0-0.7); Eosinophils % (A) 1 %; HCT 46.9 % (39.0-53.0); HGB 15.5 gm/dL (13.0-17.5); Lymphocytes # (A) 2.5 k/uL (1.0-4.8); Lymphocytes % (A) 28 %; MCH 30.6 pg (25.0-35.0); MCHC 33.1 g/dL (31.0-37.0); MCV 92.5 fL (80.0-100.0); Monocytes # (A) 0.8 k/uL (0-1.0); Monocytes % (A) 8 %; Neutrophils # (A) 5.7 k/uL (1.3-7.7); Neutrophils % (A) 61 %; Platelet Count 326 k/uL (150-450); RBC 5.07 m/uL (4.30-5.90); RDW 11.8 % (11.5-15.5); WBC 9.3 k/uL (3.8-10.6)
--- NOTE | 2022-02-04 09:43 | CT ---
EXAMINATION TYPE: CT lumbar spine w con DATE OF EXAM: 02/04/2022 COMPARISON: None HISTORY: 22-year-old male Back pain and redness at lumbar drain site TECHNIQUE: Contiguous axial scanning of the lumbar spine performed with IV Contrast, patient injected with 100 mL of Isovue 300. Coronal/sagittal reconstructions performed. CT DLP: Included in CT Abd/Pelvis of 466 mGycm Automated exposure control for dose reduction was used. FINDINGS: Known reverse S-shaped scoliosis. Abdomen and pelvis reported separately. Please refer to dedicated r eport for further details. Known four antigravity ball valve device on the right side of the pelvis. Catheter comes around and e nters the anterior pelvic peritoneal cavity. It also extends back around entering the midline interla minar space at L5-S1. The tip of the catheter extends to the L4 level. Some vascular enhancement along the ventral epidural region, for example, towards the right at T12-L1 . Vertebral body heights are preserved and alignment is maintained. There is mild degenerative disc disease at L5-S1 with mild disc space narrowing and disc bulging. Thi s impresses on ventral thecal sac without significant spinal canal stenosis. Injuries to minimal infe rior foraminal narrowing on the left and mild on the right. There may be some mild edema in the subcutaneous adipose layer along the right paramedian aspect omayra g the course of the catheter, asymmetrically thickening the tissues near as compared to the contralat eral side, reference axial image 59. No discrete abnormal fluid collection identified in the soft tis sues here. IMPRESSION: 1. KNOWN REVERSE S-SHAPED SCOLIOSIS. LUMBAR PERITONEAL SHUNT CATHETER ON THE RIGHT ENTERING THE L5-S1 INTERLAMINAR SPACE. CATHETER TIP AT THE L4 LEVEL. ABDOMEN AND PELVIS REPORTED SEPARATELY. PLEASE REF ER TO DEDICATED REPORT FOR FURTHER DETAILS. 2. THERE MAY BE MILD EDEMA IN THE SUBCUTANEOUS ADIPOSE LAYER OVERLYING THE CATHETER, AXIAL IMAGE 59, ALONG THE RIGHT PARAMEDIAN LOWER BACK. CORRELATION CAN BE MADE TO EXCLUDE CELLULITIS HERE. NO ABNORMA L FLUID COLLECTION. 3. MILD DEGENERATIVE DISC DISEASE L5-S1. DISC BULGE HERE CONTRIBUTES TO MILD NEUROFORAMINAL NARROWING ON THE RIGHT AND MINIMAL INFERIOR FORAMINAL NARROWING ON THE LEFT. NO SPINAL CANAL STENOSIS.
[2022-02-04 09:44] LABS: Erythrocyte Sedimentation Rate 2 mm/hr (0-15)
[2022-02-04 09:56] LABS: African American GFR (CKD) >90 (>60 ml/min/1.73 sqM); Anion Gap 7 mmol/L; Blood Urea Nitrogen 15 mg/dL (9-20); C Reactive Protein <0.5 mg/dL (<1.0); Calcium 9.9 mg/dL (8.4-10.2); Carbon Dioxide 30 mmol/L (22-30); Chloride 101 mmol/L (98-107); Glucose 87 mg/dL (74-99); Non-African American GFR(CKD) >90 (>60 ml/min/1.73 sqM); Potassium 4.8 mmol/L (3.5-5.1); Sodium 138 mmol/L (137-145)
--- NOTE | 2022-02-04 10:19 | CT ---
EXAMINATION TYPE: CT abdomen pelvis w con DATE OF EXAM: 02/04/2022 COMPARISON: No previous CT scan is available for comparison. HISTORY: Pain and redness at the lumbar drain site. CT DLP: 466 mGycm Automated exposure control for dose reduction was used. TECHNIQUE: Helical acquisition of images was performed from the lung bases through the pelvis. CONTRAST: Performed without Oral Contrast and with IV Contrast, patient injected with 100 mL of Isovue 300. FINDINGS: LUNG BASES: No significant abnormality is appreciated. LIVER/GB: Tiny cyst at the inferior aspect of the right hepatic lobe, otherwise unremarkable liver an d gallbladder. PANCREAS: No significant abnormality is seen. SPLEEN: No significant abnormality is seen. ADRENALS: No significant abnormality is seen. KIDNEYS: Few tiny nonobstructing left renal calculi measuring up to 3 mm. Unremarkable kidneys otherw ise. FREE AIR: No free air is visualized. RETROPERITONEAL ADENOPATHY: None visualized REPRODUCTIVE ORGANS: No significant abnormality is seen URINARY BLADDER: No significant abnormality is seen. PELVIC ADENOPATHY: No pathologically enlarged lymph nodes. OSSEOUS STRUCTURES: No gross aggressive bone lesion. CT scan of the lumbar spine is dictated separpatrice kimbrough. BOWEL: No significant abnormality is seen. OTHER: A metallic device is seen in the subcutaneous tissue of the right superior gluteal region with 2 tubes. The anterior tube is connecting to the peritoneal cavity and the tip is seen in the left si de of the abdomen. The posterior tube is connected to the spinal canal. Unremarkable abdominal aorta. [id number] amount of free pelvic fluid. IMPRESSION: Small to moderate amount of free pelvic fluid as described above. No definite acute abnormality seen in the abdomen or the pelvis otherwise. CT scan of the lumbar spine is dictated separately.
[2022-02-04 12:07] VITALS: BP 128/78; PULSE 78; TEMP 98.2
== END 2022-02-04 12:06 | disposition home or self-care (01) ==
LOC: EC 06:59
DX: G89.18 Other acute postprocedural pain (principal); Z88.5 Allergy status to narcotic agent; Z88.8 Allergy status to other drugs, medicaments and biological substances; Z87.891 Personal history of nicotine dependence
CPT/HCPCS: 36415; 80048; 85652; 85025; 86140; 72132; 74177; 99284; Q9967

== ENCOUNTER 2022-02-17 20:53 | Emergency (ER) | payer OTHER ==
[2022-02-17 21:37] VITALS: BP 128/67; PULSE 62; RESP 16; TEMP 97.1
[2022-02-17] MEDS ORDERED: CLINDAMYCIN 150 MG CAP PO STA (23:39)
[2022-02-17] MEDS ORDERED: ONDANSETRON ODT 4 MG TAB PO STA (23:45)
--- NOTE | 2022-02-17 23:50 | ED ---
General Adult HPI - General Chief complaint: Recheck/Abnormal Lab/Rx Stated complaint: Insomnia,Fatigue,Loss of Appetite Time Seen by Provider: 02/17/22 23:13 Source: patient, RN notes reviewed Mode of arrival: ambulatory Limitations: no limitations - History of Present Illness Initial comments: This is a 22-year-old male who complains of loss of appetite and nausea associated with oral antibiotic use. Patient states he was diagnosed with MRSA approximately a week ago and has been taking his antibiotic until the last 2 days. Patient states he has been unable to tolerate the abdominal discomfort and nausea associated with the antibiotic. States he has not been taking it with food and is requesting a different antibiotic. Site of MRSA is an isolated abscess in the low back. Denies fever, chills, headache, wound drainage, or worsening erythema. - Related Data Previous Rx's Medication Instructions Recorded Clindamycin [Cleocin] 150 mg PO Q6H #40 capsule 02/17/22 Ondansetron Odt [Zofran Odt] 4 mg PO Q8HR PRN #10 tab 02/17/22 Allergies Allergy/AdvReac Type Severity Reaction Status Date / Time aripiprazole [From Abilify] AdvReac Rash/Hives Verified 02/17/22 23:36 codeine AdvReac Rash/Hives Verified 02/17/22 23:36 Review of Systems ROS Statement: Those systems with pertinent positive or pertinent negative responses have been documented in the HPI. ROS Other: All systems not noted in ROS Statement are negative. Past Medical History Past Medical History: Seizure Disorder Additional Past Medical History / Comment(s): hydrocephalus History of Any Multi-Drug Resistant Organisms: MRSA Date of last positivie culture/infection: 02/07/22 MDRO Source:: MRSA BACK Past Surgical History: No Surgical Hx Reported Additional Past Surgical History / Comment(s): lumbar lp shunt Past Psychological History: No Psychological Hx Reported Smoking Status: Former smoker Past Alcohol Use History: None Reported Past Drug Use History: Marijuana General Exam Limitations: no limitations (Well-developed, well-nourished male in no acute distress. Initial temperature 97.1, pulse 62, respiration 16, blood pressure 120/67, pulse ox 98% on room air.) General appearance: alert, in no apparent distress Eye exam: Present: normal appearance. Absent: scleral icterus, conjunctival injection ENT exam: Present: normal oropharynx, mucous membranes moist Respiratory exam: Present: normal lung sounds bilaterally. Absent: respiratory distress, wheezes, rales, rhonchi, stridor Cardiovascular Exam: Present: regular rate, normal rhythm, normal heart sounds. Absent: systolic murmur, diastolic murmur, rubs, gallop, clicks GI/Abdominal exam: Present: soft, normal bowel sounds. Absent: distended, tenderness, guarding, rebound, rigid Neurological exam: Present: alert, oriented X3 Psychiatric exam: Present: flat affect Skin exam: Present: warm, dry, intact, other (Small reddened area right lumbar region proximal to shunt. Site is soft, no fluctuant area palpable. No wound drainage.) Course Vital Signs 02/17/22 21:33 Temperature 97.1 F L Pulse Rate 62 Respiratory 16 Rate Blood Pressure 128/67 O2 Sat by Pulse 98 Oximetry Medical Decision Making - Medical Decision Making 22-year-old male with a past medical history of abscess that cultured positive for MRSA presents to the emergency department requesting an antibiotic change due GI intolerance. Upon exam, patient is well-appearing and in no acute distress. He complains of difficulty tolerating Bactrim as currently prescribed. Microbiology was reviewed showing sensitivity to clindamycin therefore this option was presented. Also was given a dose of Zofran while present in the emergency department. Discussed GI intolerance related to antibiotic uses, and not taking them with adequate food. Patient is encouraged to eat 3-5 small meals daily and was prescribed Zofran. Instructed to follow up with PCP for recheck. Return parameters reviewed in detail. Patient verbalizes understanding and agrees with this plan. Attending: Juan A Disposition Clinical Impression: Loss of appetite, Medication side effect, Nausea, Abscess Disposition: HOME SELF-CARE Condition: Stable Instructions (If sedation given, give patient instructions): MRSA (Methicillin- Resistant Staphylococcus Aureus) (ED), Acute Nausea and Vomiting (ED) Additional Instructions: Stop taking Bactrim. Begin taking clindamycin. Take Zofran in the morning before taking your antibiotic. Do your best to eat 3-5 meals daily. Follow-up with your PCP for recheck. Return to the emergency department with any new, worsening, or concerning symptoms. Prescriptions: Clindamycin [Cleocin] 150 mg PO Q6H #40 capsule Ondansetron Odt [Zofran Odt] 4 mg PO Q8HR PRN #10 tab PRN Reason: Nausea Is patient prescribed a controlled substance at d/c from ED?: No Referrals: None,Stated [Primary Care Provider] - 1-2 days Time of Disposition: 23:50
== END 2022-02-18 00:05 | disposition home or self-care (01) ==
LOC: EC 20:53
DX: R11.0 Nausea (principal); R53.83 Other fatigue; R63.0 Anorexia; T36.8X5A Adverse effect of other systemic antibiotics, initial encounter; L02.212 Cutaneous abscess of back [any part, except buttock and flank]; A49.02 Methicillin resistant Staphylococcus aureus infection, unspecified site; Z87.891 Personal history of nicotine dependence; Z88.8 Allergy status to other drugs, medicaments and biological substances; Z88.5 Allergy status to narcotic agent
CPT/HCPCS: 99283

== ENCOUNTER 2022-09-30 21:34 | Emergency (ER) | payer OTHER ==
[2022-09-30 21:40] VITALS: BP 119/72; PULSE 83; RESP 18; TEMP 98.4
--- NOTE | 2022-09-30 22:35 | ED ---
Wound/Laceration HPI - General Chief Complaint: Wound/Laceration Stated Complaint: R hand finger lac Time Seen by Provider: 09/30/22 21:48 Source: patient Mode of arrival: ambulatory Limitations: no limitations - History of Present Illness Initial Comments: patient is a 22-year-old male presenting with chief complaint of laceration to the right pointer finger. Patient sustained a laceration this morning, approximately 7 hours ago. He was handling clean broken glass inside the house today. He applied superglue over the laceration so that he could still go to work. He is presenting to "ensure that it is washed out really good". Patient has had a history of staph infections. last tetanus shot was within the last 6 years. No numbness or tingling. Patient has full range of motion. Bleeding is well controlled - Related Data Previous Rx's Medication Instructions Recorded Clindamycin [Cleocin] 300 mg PO TID 10 Days #60 cap 06/13/22 Allergies Allergy/AdvReac Type Severity Reaction Status Date / Time aripiprazole [From Abilify] Allergy Rash/Hives Verified 09/30/22 21:40 codeine Allergy Rash/Hives Verified 09/30/22 21:40 sulfamethoxazole AdvReac Nausea/Vomiting/Abdominal Verified 09/30/22 21:40 [From Bactrim] Pain/Anxiety trimethoprim [From Bactrim] AdvReac Nausea/Vomiting/Abdominal Verified 09/30/22 21:40 Pain/Anxiety Review of Systems ROS Statement: Those systems with pertinent positive or pertinent negative responses have been documented in the HPI. ROS Other: All systems not noted in ROS Statement are negative. Past Medical History Past Medical History: Seizure Disorder Additional Past Medical History / Comment(s): hydrocephalus History of Any Multi-Drug Resistant Organisms: MRSA Date of last positivie culture/infection: 02/07/22 MDRO Source:: MRSA BACK Past Surgical History: No Surgical Hx Reported Additional Past Surgical History / Comment(s): lumbar lp shunt Past Psychological History: No Psychological Hx Reported Smoking Status: Former smoker, Vaper Past Alcohol Use History: None Reported Past Drug Use History: Marijuana General Exam Limitations: no limitations General appearance: alert, in no apparent distress Head exam: Present: atraumatic, normocephalic, normal inspection Eye exam: Present: normal appearance Neck exam: Present: normal inspection Neurological exam: Present: alert, oriented X3, CN II-XII intact Psychiatric exam: Present: normal affect, normal mood Expanded Type of lesion: Present: laceration (small 2 cm laceration to the right index finger. Bleeding is well controlled, area is currently covered with superglue, laceration is nonrepairable) Course Vital Signs 09/30/22 21:38 Temperature 98.4 F Pulse Rate 83 Respiratory 18 Rate Blood Pressure 119/72 O2 Sat by Pulse 96 Oximetry Medical Decision Making - Medical Decision Making patient is a 22-year-old male presenting with chief complaint of laceration to the right index finger. Patient used superglue earlier today to fix the finger so he could go to work. Tetanus is up-to-date. On examination bleeding is well-controlled and laceration is closed. Area was cleaned with alcohol prep pads, super glue removed as much as possible without causing further irritation, and flushed with 1 L sterile water. No repair is necessary at this time. patient has educated on wound care. Educated on signs of infection. Keep the wound clean, dry, and covered.Follow-up with PCP. Report back to ER with any new or worsening symptoms. Discussed return parameters and answered all questions. Patient conveyed verbal understanding and agreed to the plan. I discussed this case in detail with my attending Dr. Morocho Disposition Clinical Impression: Laceration Disposition: HOME SELF-CARE Condition: Good Instructions (If sedation given, give patient instructions): Finger Laceration (ED), Laceration Without Closure (ED) Additional Instructions: report back to ER with any new or worsening symptoms. Monitor for signs of infection, including but not limited to redness, swelling, warmth, tenderness, discharge, fever, chills. Keep the wound clean, dry, and covered. Is patient prescribed a controlled substance at d/c from ED?: No Referrals: None,Stated [Primary Care Provider] - 1-2 days Time of Disposition: 22:35
== END 2022-09-30 22:40 | disposition home or self-care (01) ==
LOC: EC 21:34
DX: S61.411A Laceration without foreign body of right hand, initial encounter (principal); F12.90 Cannabis use, unspecified, uncomplicated; Z88.8 Allergy status to other drugs, medicaments and biological substances; Z88.5 Allergy status to narcotic agent; Z88.2 Allergy status to sulfonamides; Z87.891 Personal history of nicotine dependence; X58.XXXA Exposure to other specified factors, initial encounter
CPT/HCPCS: 99282

== ENCOUNTER 2022-10-18 13:02 | Emergency (ER) | payer OTHER ==
[2022-10-18 13:41] VITALS: RESP 18
--- NOTE | 2022-10-18 15:04 | ED ---
General Adult HPI - General Chief complaint: Upper Respiratory Infection Stated complaint: cough, congestion Time Seen by Provider: 10/18/22 14:54 Source: patient, RN notes reviewed Mode of arrival: ambulatory Limitations: no limitations - History of Present Illness Initial comments: 22 male with no significant past medical history presents the emergency department complaining of sore throat and fever 5 days. He notes nasal congestion and when he blows his nose it is yellow/green mucus. He denies known fevers, shortness of breath, chest pain, palpitations, abdominal pain, nausea. He does admit to a bout of vomiting and diarrhea. He maintains his appetite. He denies known recent sick contacts. He was not vaccinated against COVID or influenza. - Related Data Previous Rx's Medication Instructions Recorded Clindamycin [Cleocin] 300 mg PO TID 10 Days #60 cap 06/13/22 Azithromycin [Zithromax Z Pack] 250 mg PO DIRECTED 5 Days #6 tab 10/18/22 Allergies Allergy/AdvReac Type Severity Reaction Status Date / Time aripiprazole [From Abilify] Allergy Rash/Hives Verified 09/30/22 21:40 codeine Allergy Rash/Hives Verified 09/30/22 21:40 sulfamethoxazole AdvReac Nausea/Vomiting/Abdominal Verified 09/30/22 21:40 [From Bactrim] Pain/Anxiety trimethoprim [From Bactrim] AdvReac Nausea/Vomiting/Abdominal Verified 09/30/22 21:40 Pain/Anxiety Review of Systems ROS Statement: Those systems with pertinent positive or pertinent negative responses have been documented in the HPI. ROS Other: All systems not noted in ROS Statement are negative. Past Medical History Past Medical History: Seizure Disorder Additional Past Medical History / Comment(s): hydrocephalus History of Any Multi-Drug Resistant Organisms: MRSA Date of last positivie culture/infection: 02/07/22 MDRO Source:: MRSA BACK Past Surgical History: No Surgical Hx Reported Additional Past Surgical History / Comment(s): lumbar lp shunt Past Psychological History: No Psychological Hx Reported Smoking Status: Former smoker, Vaper Past Alcohol Use History: None Reported Past Drug Use History: Marijuana General Exam Limitations: no limitations General appearance: alert, in no apparent distress Head exam: Present: atraumatic, normocephalic, normal inspection Eye exam: Present: normal appearance, PERRL, EOMI. Absent: scleral icterus, conjunctival injection, periorbital swelling ENT exam: Present: normal exam, mucous membranes moist Neck exam: Present: normal inspection. Absent: tenderness, meningismus, lymphadenopathy Respiratory exam: Present: normal lung sounds bilaterally. Absent: respiratory distress, wheezes, rales, rhonchi, stridor Cardiovascular Exam: Present: regular rate, normal rhythm, normal heart sounds. Absent: systolic murmur, diastolic murmur, rubs, gallop, clicks GI/Abdominal exam: Present: soft, normal bowel sounds. Absent: distended, tenderness, guarding, rebound, rigid Extremities exam: Present: normal inspection, full ROM, normal capillary refill. Absent: tenderness, pedal edema, joint swelling, calf tenderness Back exam: Present: normal inspection Neurological exam: Present: alert, oriented X3, CN II-XII intact Psychiatric exam: Present: normal affect, normal mood Skin exam: Present: warm, dry, intact, normal color. Absent: rash Course Vital Signs 10/18/22 10/18/22 10/18/22 13:38 14:40 16:33 Temperature 98 F 98.0 F Pulse Rate 88 79 Respiratory 18 18 Rate Blood Pressure 133/76 130/70 O2 Sat by Pulse 109 H 100 100 Oximetry Medical Decision Making - Medical Decision Making This is 22 a year old male presenting to the emergency department for congestion and sore throat. Patient was seen and evaluated physical exam essentially unremarbale . Lab Work and imaging ordered and performed during the course in the ED. I interpreted the following: COVID, flu, RSV negativ. Chest XR: negative for evidence of effusion or peural process. Patient was given a prescription for azithromycin due to not having a PCP. I discussed the results in detail with the patient and return precautions were discussed. Patient verbalized understanding and is agreeable with plan for discharge. I discussed the case with Dr. Foster [facility] who agrees with plan for discharge. - Lab Data Lab Results 10/18/22 Range/Units 13:42 Influenza Type A (PCR) Not Detected (Not Detectd) Influenza Type B (PCR) Not Detected (Not Detectd) RSV (PCR) Not Detected (Not Detectd) SARS-CoV-2 (PCR) Not Detected (Not Detectd) Disposition Clinical Impression: Sinusitis Disposition: HOME SELF-CARE Condition: Stable Instructions (If sedation given, give patient instructions): Upper Respiratory Infection (ED) Additional Instructions: Return to the nearest emergency department if worsening symptoms of cough, shortness of breath, fever. Prescriptions: Azithromycin [Zithromax Z Pack] 250 mg PO DIRECTED 5 Days #6 tab Is patient prescribed a controlled substance at d/c from ED?: No Referrals: None,Stated [Primary Care Provider] - 1-2 days Time of Disposition: 16:23
--- NOTE | 2022-10-18 15:46 | XR ---
EXAMINATION TYPE: XR chest 2V DATE OF EXAM: 10/18/2022 COMPARISON: 02/26/2020 HISTORY: 22-year-old male with cough TECHNIQUE: PA and lateral views FINDINGS: Marked levoconvex scoliosis. The cardiomediastinal silhouette, aorta, and pulmonary vasculature are w ithin normal limits. Hyperinflation likely related to depth of inspiration. Otherwise, lungs and pleu ral spaces are clear. IMPRESSION: Levoconvex scoliosis. No acute cardiopulmonary process.
[2022-10-18 16:34] VITALS: BP 130/70; PULSE 79; TEMP 98
== END 2022-10-18 16:33 | disposition home or self-care (01) ==
LOC: EC 13:02
DX: J32.9 Chronic sinusitis, unspecified (principal); F12.90 Cannabis use, unspecified, uncomplicated; Z87.891 Personal history of nicotine dependence; Z88.1 Allergy status to other antibiotic agents; Z88.2 Allergy status to sulfonamides; Z88.5 Allergy status to narcotic agent; Z88.8 Allergy status to other drugs, medicaments and biological substances; Z20.822 Contact with and (suspected) exposure to COVID-19
CPT/HCPCS: 71046; 87636; 99283

== ENCOUNTER 2023-01-13 13:18 | Emergency (ER) | payer OTHER ==
[2023-01-13 13:42] VITALS: PULSE 99
[2023-01-13] MEDS ORDERED: LIDOCAINE 1% INJ 10MG/ML (30 ML VIAL-PF) SQ ONE (14:00)
--- NOTE | 2023-01-13 14:41 | ED ---
General Adult HPI - General Chief complaint: Skin/Abscess/Foreign Body Stated complaint: abscess under lt arm Time Seen by Provider: 01/13/23 13:29 Source: patient, RN notes reviewed Mode of arrival: ambulatory Limitations: no limitations - History of Present Illness Initial comments: 23-year-old male with a past medical history significant for MRSA infection reports to the emergency department with a chief complaint of abscess. He reports an abscess in his left axilla that started as a small pustule and has progressively gotten bigger. He believes that it is due to his deodorant use. He denies any self incision and drainage. He denies history of diabetes. He notes that the area is painful and has noticed a small area of redness that has migrated outside of his axilla. He denies any numbness or tingling down his extremity, he denies any known fevers, chills. - Related Data Previous Rx's Medication Instructions Recorded Clindamycin [Cleocin] 300 mg PO TID 10 Days #60 cap 06/13/22 Azithromycin [Zithromax Z Pack] 250 mg PO DIRECTED 5 Days #6 tab 10/18/22 Clindamycin [Cleocin] 150 mg PO Q6H #40 capsule 01/13/23 Allergies Allergy/AdvReac Type Severity Reaction Status Date / Time aripiprazole [From Abilify] Allergy Rash/Hives Verified 09/30/22 21:40 codeine Allergy Rash/Hives Verified 09/30/22 21:40 sulfamethoxazole AdvReac Nausea/Vomiting/Abdominal Verified 09/30/22 21:40 [From Bactrim] Pain/Anxiety trimethoprim [From Bactrim] AdvReac Nausea/Vomiting/Abdominal Verified 09/30/22 21:40 Pain/Anxiety Review of Systems ROS Statement: Those systems with pertinent positive or pertinent negative responses have been documented in the HPI. ROS Other: All systems not noted in ROS Statement are negative. Past Medical History Past Medical History: Seizure Disorder Additional Past Medical History / Comment(s): hydrocephalus, scolosis, chiari malformation History of Any Multi-Drug Resistant Organisms: MRSA Date of last positivie culture/infection: 02/07/22 MDRO Source:: MRSA BACK Past Surgical History: No Surgical Hx Reported Additional Past Surgical History / Comment(s): lumbar lp shunt, Past Psychological History: No Psychological Hx Reported Smoking Status: Former smoker, Vaper Past Alcohol Use History: None Reported Past Drug Use History: Marijuana General Exam Limitations: no limitations General appearance: alert, in no apparent distress Head exam: Present: atraumatic, normocephalic, normal inspection Eye exam: Present: normal appearance, PERRL, EOMI. Absent: scleral icterus, conjunctival injection, periorbital swelling ENT exam: Present: normal exam, mucous membranes moist Neck exam: Present: normal inspection. Absent: tenderness, meningismus, lymphadenopathy Respiratory exam: Present: normal lung sounds bilaterally. Absent: respiratory distress, wheezes, rales, rhonchi, stridor Cardiovascular Exam: Present: regular rate, normal rhythm, normal heart sounds. Absent: systolic murmur, diastolic murmur, rubs, gallop, clicks GI/Abdominal exam: Present: soft, normal bowel sounds. Absent: distended, tenderness, guarding, rebound, rigid Extremities exam: Present: normal inspection, full ROM, normal capillary refill. Absent: tenderness, pedal edema, joint swelling, calf tenderness Left General: Present: other (L axilla with 1cm lesion that is fluctuant and tender to palpation, no active drainage. Small migratory erythema to axilla region) Back exam: Present: normal inspection Neurological exam: Present: alert, oriented X3, CN II-XII intact Psychiatric exam: Present: normal affect, normal mood Skin exam: Present: warm, dry, intact, normal color. Absent: rash Course Vital Signs 01/13/23 01/13/23 01/13/23 13:19 13:37 15:11 Temperature 98.9 F 99.1 F 100 F H Pulse Rate 97 99 99 Respiratory 16 18 Rate Blood Pressure 129/81 125/83 128/77 O2 Sat by Pulse 99 99 99 Oximetry Medical Decision Making - Medical Decision Making Was pt. sent in by a medical professional or institution (, PA, DOG BREEDER, urgent care, hospital, or group home...) When possible be specific @ -[No] Did you speak to anyone other than the patient for history (EMS, parent, family, police, friend...)? What history was obtained from this source @ -[No] Did you review nursing and triage notes (agree or disagree)? Why? @ -[I reviewed and agree with nursing and triage notes] Were old charts reviewed (outside hosp., previous admission, EMS record, old EKG, old radiological studies, urgent care reports/EKG's, group home records)? Report findings @ -[No old charts were reviewed] Differential Diagnosis (chest pain, altered mental status, abdominal pain women, abdominal pain men, vaginal bleeding, weakness, fever, dyspnea, syncope, headache, dizziness, GI bleed, back pain, seizure, CVA, palpatations, mental health, musculoskeletal)? @ -[not applicable] EKG interpreted by me (3pts min.). @ -[As above] X-rays interpreted by me (1pt min.). @ -[None done] CT interpreted by me (1pt min.). @ -[None done] U/S interpreted by me (1pt. min.). @ -[None done] What testing was considered but not performed or refused? (CT, X-rays, U/S, labs)? Why? @ -[None] What meds were considered but not given or refused? Why? @ -He should was offered Tylenol or Motrin however Patient refused anything for pain Did you discuss the management of the patient with other professionals (professionals i.e. , PA, DOG BREEDER, lab, RT, psych nurse, manager social services, veneer stock grader, teacher, environmental officer, leather case finisher)? Give summary @ -[No] Was smoking cessation discussed for >3mins.? @ -[No] Was critical care preformed (if so, how long)? @ -[No] Were there social determinants of health that impacted care today? How? (Alana elessness, low income, unemployed, alcoholism, drug addiction, transportation, low edu. Level, literacy, decrease access to med. care, detention, rehab)? @ -[No] Was there de-escalation of care discussed even if they declined (Discuss DNR or withdrawal of care, Hospice)? DNR status @ -[No] What co-morbidities impacted this encounter? (DM, HTN, Smoking, COPD, CAD, Cancer, CVA, ARF, Chemo, Hep., AIDS, mental health diagnosis, sleep apnea, morbid obesity)? @ -[None] Was patient admitted / discharged? Hospital course, mention meds given and route, prescriptions, significant lab abnormalities, going to OR and other pertinent info. @ -Discharged. This is a 23-year-old male who presents the emergency department with abscess. Patient had a thorough history and physical exam performed while in the ED. Physical exam is essentially unremarkable. Heart rate regular rate and rhythm, lungs clear to auscultation bilaterally abdomen is soft and non-tender. . Patient given tylenol and motrin with symptomatic relief while in the ED. due to the patient being febrile upon charged vitals patient was offered blood work for which he declined. I discussed the results in detail with the patient's mother who verbalized understanding and all questions and concerns were addressed. Patient was discharged in stable condition with recommended close follow-up with PCP in 1-2 days. He was given a prescription for clindamycin. Return precautions were discussed at length. Case discussed with SIMBA Shah who agrees with plan of care Undiagnosed new problem with uncertain prognosis? @ -[No] Drug Therapy requiring intensive monitoring for toxicity (Heparin, Nitro, Insulin, Cardizem)? @ -[No] Were any procedures done? @ -[No] Diagnosis/symptom? @ -Abscess to L axilla Acute, or Chronic, or Acute on Chronic? @ -acute Uncomplicated (without systemic symptoms) or Complicated (systemic symptoms)? @ -complicated, fever upon discharge. Patient was given Tylenol Motrin. Patient refused stating in order to obtain lab work. Patient verbalized understanding of return precautions. Side effects of treatment? @ -[No] Exacerbation, Progression, or Severe Exacerbation? @ -[No] Poses a threat to life or bodily function? How? (Chest pain, [place], [place], pneumonia, PE, COPD, DKA, ARF, appy, cholecystitis, CVA, Diverticulitis, Homicidal, Suicid al, threat to staff... and all critical care pts) @ -low likelihood Disposition Clinical Impression: Abscess Disposition: HOME SELF-CARE Condition: Stable Instructions (If sedation given, give patient instructions): Abscess (ED) Additional Instructions: Please return to the nearest emergency department if symptoms worsen or persist Prescriptions: Clindamycin [Cleocin] 150 mg PO Q6H #40 capsule Is patient prescribed a controlled substance at d/c from ED?: No Referrals: None,Stated [Primary Care Provider] - 1-2 days Lela Burns MD [STAFF PHYSICIAN] - 1-2 days Time of Disposition: 14:39
[2023-01-13] MEDS ORDERED: ACETAMINOPHEN TAB 325 MG TAB PO STA (15:06)
[2023-01-13] MEDS ORDERED: IBUPROFEN 600 MG TAB PO STA (15:06)
[2023-01-13 15:14] VITALS: BP 128/77; RESP 18; TEMP 100
== END 2023-01-13 15:14 | disposition home or self-care (01) ==
LOC: EC 13:18
DX: L02.414 Cutaneous abscess of left upper limb (principal); F17.290 Nicotine dependence, other tobacco product, uncomplicated; F12.90 Cannabis use, unspecified, uncomplicated; Z88.6 Allergy status to analgesic agent; Z88.5 Allergy status to narcotic agent; Z88.2 Allergy status to sulfonamides; Z88.1 Allergy status to other antibiotic agents
CPT/HCPCS: 99283; J2001

== ENCOUNTER 2023-09-21 01:46 | Emergency (ER) | payer OTHER ==
[2023-09-21 02:28] VITALS: BP 100/61; PULSE 79; RESP 18; TEMP 98
[2023-09-21] MEDS ORDERED: LIDOCAINE 1% INJ 10MG/ML (20 ML MDV) SQ ONE (03:53)
[2023-09-21] MEDS ORDERED: CLINDAMYCIN 150 MG CAP PO STA (03:54)
[2023-09-21] MEDS ORDERED: CEPHALEXIN 500 MG CAP PO STA (03:54)
--- NOTE | 2023-09-21 04:06 | ED ---
Skin/Abscess/FB HPI - General Chief complaint: Skin/Abscess/Foreign Body Stated complaint: Cyst on right armpit Time Seen by Provider: 09/21/23 02:30 Source: patient, RN notes reviewed Mode of arrival: ambulatory Limitations: no limitations - History of Present Illness Initial comments: This is a 23-year-old male who presents to the emergency department for an abscess under his right armpit. States that this has been there for about a week and seems to be increasing in size. This is also increasingly painful. He has not gotten any drainage from the area. This has happened to him several times in the past and he believes that it is related to his deodorant. He does also report a history of MRSA. Denies any fevers or chills. He has been using warm compresses. States that he has tried to see a control system manager, however none of them accept his insurance. He plans on getting new insurance coverage to fix this issue. MD complaint: abscess/boil - Related Data Previous Rx's Medication Instructions Recorded Clindamycin [Cleocin] 300 mg PO TID 10 Days #60 cap 06/13/22 Azithromycin [Zithromax Z Pack] 250 mg PO DIRECTED 5 Days #6 tab 10/18/22 Clindamycin [Cleocin] 150 mg PO Q6H #40 capsule 01/13/23 Cephalexin [Keflex] 500 mg PO Q6HR 7 Days #28 cap 09/21/23 clindamycin HCL [Cleocin] 450 mg PO Q8H 7 Days #63 cap 09/21/23 Allergies Allergy/AdvReac Type Severity Reaction Status Date / Time aripiprazole [From Abilify] Allergy Rash/Hives Verified 09/21/23 02:15 codeine Allergy Rash/Hives Verified 09/21/23 02:15 sulfamethoxazole AdvReac Nausea/Vomiting/Abdominal Verified 09/21/23 02:15 [From Bactrim] Pain/Anxiety trimethoprim [From Bactrim] AdvReac Nausea/Vomiting/Abdominal Verified 09/21/23 02:15 Pain/Anxiety Review of Systems ROS Statement: Those systems with pertinent positive or pertinent negative responses have been documented in the HPI. ROS Other: All systems not noted in ROS Statement are negative. Past Medical History Past Medical History: Seizure Disorder Additional Past Medical History / Comment(s): hydrocephalus, scolosis, chiari malformation History of Any Multi-Drug Resistant Organisms: MRSA Date of last positivie culture/infection: 02/07/22 MDRO Source:: MRSA BACK Past Surgical History: No Surgical Hx Reported Additional Past Surgical History / Comment(s): lumbar lp shunt, Past Psychological History: No Psychological Hx Reported Smoking Status: Former smoker, Vaper Past Alcohol Use History: Occasional Past Drug Use History: Marijuana General Exam Limitations: no limitations General appearance: alert, in no apparent distress Head exam: Present: atraumatic, normocephalic, normal inspection Respiratory exam: Present: normal lung sounds bilaterally. Absent: respiratory distress, wheezes, rales, rhonchi, stridor Cardiovascular Exam: Present: regular rate, normal rhythm, normal heart sounds. Absent: systolic murmur, diastolic murmur, rubs, gallop, clicks Neurological exam: Present: alert, oriented X3, CN II-XII intact Psychiatric exam: Present: normal affect, normal mood Skin exam: Present: other (2-3 cm fluctuant abscess to the right axilla. There is a pinpoint area consistent with purulent material. No active drainage.) Course Vital Signs 09/21/23 02:13 Temperature 98 F Pulse Rate 79 Respiratory 18 Rate Blood Pressure 100/61 O2 Sat by Pulse 98 Oximetry Procedures - Incision & Drainage Consent Obtained: verbal consent Indication: Abscess Site: upper extremity Size (cm): 3 Anesthetic Used: lidocaine 1% Amount (mLs): 4 I&D Cleaning Method: Alcohol Wipe Sterile Field Used?: Yes Scalpel Used: #11 Ultrasound used: No Needle Aspiration Performed?: No Irrigation Performed?: Yes I&D Drainage Obtained: Pus, Blood Loculation Noted: probing needed to break Insertion of drain: No Culture Obtained?: Yes Medical Decision Making - Medical Decision Making This is a 23-year-old male who presents to the emergency department for an abscess under his right armpit. Was pt. sent in by a medical professional or institution? @ -No Did you speak to anyone other than the patient for history? @ -No Did you review nursing and triage notes? @ -Yes, and I agree, it is accurate with regards to the patient's symptoms. Were old charts reviewed? @ -No Differential Diagnosis? @ -Differential Abscess: Phlegmon, cellulitis, abscess, insect bite, this is not meant to be an all- inclusive list. EKG interpreted by me (3pts min.)? @ -Not obtained X-rays interpreted by me (1pt min.)? @ -Not obtained CT interpreted by me (1pt min.)? @ -Not obtained U/S interpreted by me (1pt. min.)? @ -Not obtained What testing was considered but not performed? (CT, X-rays, U/S, labs)? Why? @ -None What meds were considered but not given? Why? @ -None Did you discuss the management of the patient with other professionals? @ -No Did you reconcile home meds? @ -No Was smoking cessation discussed for >3mins.? @ -No Was critical care preformed (if so, how long)? @ -No Were there social determinants of health that impacted care today? How? (Homelessness, low income, unemployed, alcoholism, drug addiction, transportation, low edu. Level, literacy, decrease access to med. care, assisted, rehab)? @ -No Was there de-escalation of care discussed even if they declined? (Discuss DNR or withdrawal of care, Hospice)? @ -No What co-morbidities impacted this encounter? (DM, HTN, Smoking, COPD, CAD, Cancer, CVA, Hep., AIDS, mental health diagnosis, sleep apnea, morbid obesity)? @ -None Was patient admitted / discharged? @ -Discharged. Physical examination consistent with an abscess. Incision and drainage was performed and a large amount of purulent material was expressed. He had improvement in pain and pressure afterwards. Cultures were obtained. He was given a dose of clindamycin and Keflex in the emergency department and a prescription for a 7 day course of both antibiotics were prescribed with dosing instructions reviewed. Advised continuing with warm compresses and alternating with ibuprofen and Tylenol as needed for pain relief. Patient discharged home in stable condition. Undiagnosed new problem with uncertain prognosis? @ -None Drug Therapy requiring intensive monitoring for toxicity (Heparin, Nitro, Insulin, Cardizem)? @ -None Were any procedures done? @ -Incision and drainage of abscess Diagnosis/symptom? @ -Abscess Acute, or Chronic, or Acute on Chronic? @ -Acute Uncomplicated (without systemic symptoms) or Complicated (systemic symptoms)? @ -Uncomplicated Side effects of treatment? @ -None Exacerbation, Progression, or Severe Exacerbation] @ -Not applicable Poses a threat to life or bodily function? @ -No Return precautions reviewed in depth, the patient is instructed to return to the emergency department with any new, worsening, or concerning symptoms. Patient verbalized understanding. This case was discussed in detail with the attending ED physician, Dr. Almaraz. Presentation, findings, and treatment plan discussed in detail as well. Disposition Clinical Impression: Abscess of axilla, right Disposition: HOME SELF-CARE Instructions (If sedation given, give patient instructions): Abscess Incision and Drainage (ED), Abscess (ED) Additional Instructions: Return to the emergency department with any new, worsening, or concerning symptoms. Take both antibiotics as prescribed for 7 days. Alternate with ibuprofen and Tylenol as needed for pain relief. Continue to apply warm compresses. Follow up with your primary care provider in 1-2 days. Prescriptions: clindamycin HCL [Cleocin] 450 mg PO Q8H 7 Days #63 cap Cephalexin [Keflex] 500 mg PO Q6HR 7 Days #28 cap Is patient prescribed a controlled substance at d/c from ED?: No Referrals: None,Stated [Primary Care Provider] - 1-2 days
[2023-09-21] MEDS ORDERED: KETOROLAC 15 MG/ML 1 ML VIAL IM STA (04:36)
[2023-09-21] MEDS ORDERED: HYDROmorphone 0.5 MG/0.5 ML SYRINGE IM STA (04:36)
[2023-09-21] MEDS ORDERED: traMADol 50 MG STARTER PACK 3 TAB BTL PO STA (04:40)
[2023-09-21] MEDS ORDERED: IBUPROFEN 600 MG STARTER PACK 4 TAB BTL PO STA (04:40)
== END 2023-09-21 05:14 | disposition home or self-care (01) ==
LOC: EC 01:46
DX: L02.411 Cutaneous abscess of right axilla (principal); F17.290 Nicotine dependence, other tobacco product, uncomplicated; F12.90 Cannabis use, unspecified, uncomplicated; Z88.2 Allergy status to sulfonamides; Z88.5 Allergy status to narcotic agent; Z88.8 Allergy status to other drugs, medicaments and biological substances
CPT/HCPCS: 87070; 87205; 99283; 96372 ×2; 10060; J2001; J1885; J1170

== ENCOUNTER 2024-05-15 20:58 | Emergency (ER) | payer OTHER ==
[2024-05-15 21:07] VITALS: TEMP 97.6
--- NOTE | 2024-05-15 21:54 | ED ---
Headache HPI - General Chief Complaint: Headache Stated Complaint: Headache,Vomiting Time Seen by Provider: 05/15/24 21:50 Source: RN notes reviewed, old records reviewed Mode of arrival: ambulatory Limitations: no limitations - History of Present Illness Initial Comments: This is a 24-year-old male with significant history of Chiari, patient has severe headache with nausea vomiting here in the ER. PAtients headache is severe MD Complaint: headache, "migraine" -: days(s) Onset Description: gradual Location: right, left, frontal Severity: moderate Severity scale (1-10): 4 Quality: throbbing Consistency: constant Improves With: nothing Worsens With: none Context: other (0) Associated Symptoms: weakness Other Symptoms: other (0) Treatments Prior to Arrival: none - Related Data Previous Rx's Medication Instructions Recorded Clindamycin [Cleocin] 300 mg PO TID 10 Days #60 cap 06/13/22 Azithromycin [Zithromax Z Pack] 250 mg PO DIRECTED 5 Days #6 tab 10/18/22 Clindamycin [Cleocin] 150 mg PO Q6H #40 capsule 01/13/23 Cephalexin [Keflex] 500 mg PO Q6HR 7 Days #28 cap 09/21/23 clindamycin HCL [Cleocin] 450 mg PO Q8H 7 Days #63 cap 09/21/23 Allergies Allergy/AdvReac Type Severity Reaction Status Date / Time aripiprazole [From Abilify] Allergy Unknown Verified 05/15/24 23:22 codeine Allergy Rash/Hives Verified 05/15/24 21:07 sulfamethoxazole AdvReac Nausea/Vomiting/Abdominal Verified 05/15/24 21:07 [From Bactrim] Pain/Anxiety trimethoprim [From Bactrim] AdvReac Nausea/Vomiting/Abdominal Verified 05/15/24 21:07 Pain/Anxiety Review of Systems ROS Statement: Those systems with pertinent positive or pertinent negative responses have been documented in the HPI. ROS Other: All systems not noted in ROS Statement are negative. Past Medical History Past Medical History: Seizure Disorder Additional Past Medical History / Comment(s): hydrocephalus, scolosis, chiari malformation History of Any Multi-Drug Resistant Organisms: MRSA Date of last positivie culture/infection: 09/21/23 MDRO Source:: Right Axilla Past Surgical History: No Surgical Hx Reported Additional Past Surgical History / Comment(s): lumbar lp shunt, Past Psychological History: No Psychological Hx Reported Smoking Status: Former smoker, Vaper Past Alcohol Use History: Occasional Past Drug Use History: Marijuana General Exam Limitations: no limitations General appearance: alert, in no apparent distress Head exam: Present: atraumatic, normocephalic, normal inspection Eye exam: Present: normal appearance, PERRL, EOMI. Absent: scleral icterus, conjunctival injection, periorbital swelling ENT exam: Present: normal exam, mucous membranes moist Neck exam: Present: normal inspection. Absent: tenderness, meningismus, lymphadenopathy Respiratory exam: Present: normal lung sounds bilaterally. Absent: respiratory distress, wheezes, rales, rhonchi, stridor Cardiovascular Exam: Present: regular rate, normal rhythm, normal heart sounds. Absent: systolic murmur, diastolic murmur, rubs, gallop, clicks GI/Abdominal exam: Present: soft, normal bowel sounds. Absent: distended, tenderness, guarding, rebound, rigid Extremities exam: Present: normal inspection, full ROM, normal capillary refill. Absent: tenderness, pedal edema, joint swelling, calf tenderness Back exam: Present: normal inspection Neurological exam: Present: alert, oriented X3, CN II-XII intact Psychiatric exam: Present: normal affect, normal mood Skin exam: Present: warm, dry, intact, normal color. Absent: rash Course Vital Signs 05/15/24 05/16/24 21:03 03:45 Temperature 97.6 F Pulse Rate 64 71 Respiratory 18 16 Rate Blood Pressure 129/83 122/67 O2 Sat by Pulse 99 95 Oximetry - Reevaluation(s) Reevaluation #1: 05/15/24 23:08 Records reviewed Reevaluation #2: 05/15/24 23:08 Patient symptoms unchanged Reevaluation #3: 05/15/24 23:08 Patient informed of results and questions answered Reevaluation #4: 05/15/24 22:36 Was pt. sent in by a medical professional or institution (, PA, MANAGER PRODUCT DESIGN, urgent care, hospital, or longterm...) When possible be specific @ -no Did you speak to anyone other than the patient for history (EMS, parent, family, police, friend...)? What history was obtained from this source @ -no Did you review nursing and triage notes (agree or disagree)? Why? @ -agree Are old charts reviewed (outside hosp., previous admission, EMS record, old EKG, old radiological studies, urgent care reports/EKG's, longterm records)? Report findings @ -yes Differential Diagnosis (chest pain, altered mental status, abdominal pain women, abdominal pain men, vaginal bleeding, weakness, fever, dyspnea, syncope, headache, dizziness, GI bleed, back pain, seizure, CVA, palpatations, mental health, musculoskeletal)? @ -prior EKG interpreted by me (3pts min.). @ -no X-rays interpreted by me (1pt min.). @ -no CT interpreted by me (1pt min.). @ -yes negative for acute disease U/S interpreted by me (1pt. min.). @ -no What testing was considered but not performed or refused? (CT, X-rays, U/S, labs)? Why? @ -none What meds were considered but not given or refused? Why? @ -none Did you discuss the management of the patient with other professionals (professionals i.e. , PA, MANAGER [employer] DES[employer], lab, RT, psych nurse, social worker clinical, crib attendant, teacher, diplomatic officer, case sealer)? Give summary @ -no Was smoking cessation discussed for >3mins.? @ -no Was critical care preformed (if so, how long)? @ -no Were there social determinants of health that impacted care today? How? (Homelessness, low income, unemployed, alcoholism, drug addiction, transportation, low edu. Level, literacy, decrease access to med. care, alf, rehab)? @ -none Was there de-escalation of care discussed even if they declined (Discuss DNR or withdrawal of care, Hospice)? DNR status @ -no What co-morbidities impacted this encounter? (DM, HTN, Smoking, COPD, CAD, Cancer, CVA, ARF, Chemo, Hep., AIDS, mental health diagnosis, sleep apnea, morbid obesity)? @ -none Was patient admitted / discharged? Hospital course, mention meds given and route, prescriptions, significant lab abnormalities, going to OR and other pertinent info. @ - 24 male to ER for evaluation of headache severe headache here in the emergency department but improved, patient can be discharged home Discharge Undiagnosed new problem with uncertain prognosis? @ -no Drug Therapy requiring intensive monitoring for toxicity (Heparin, Nitro, Insulin, Cardizem)? @ -no Were any procedures done? @ -no Diagnosis/symptom? @ -Headache Acute, or Chronic, or Acute on Chronic? @ -Acute Uncomplicated (without systemic symptoms) or Complicated (systemic symptoms)? @ -Complicated Side effects of treatment? @ -no Exacerbation, Progression, or Severe Exacerbation? @ -exacerbation Poses a threat to life or bodily function? How? (Chest pain, [place], [place], pneumonia, PE, COPD, DKA, ARF, appy, cholecystitis, CVA, Diverticulitis, Homicidal, Suicidal, threat to staff... and all critical care pts) @ -yes significant history of brain surgery with Chiari malformation Reevaluation #5: Differential Headache: Migraine, tension, cluster, carbon monoxide, central venous thrombosis, pension karma temporal arteritis, acute closure glaucoma, intercranial hemorrhage, mastoiditis, sinusitis, head injury, this is not meant to be an all-inclusive list. Medical Decision Making - Medical Decision Making 24 male to ER for evaluation of headache severe headache here in the emergency department but improved, patient can be discharged home - Radiology Data Radiology results: report reviewed (CT brain is negative for acute disease), image reviewed Disposition Clinical Impression: Headache Disposition: HOME SELF-CARE Condition: Fair Instructions (If sedation given, give patient instructions): Acute Headache (ED) Is patient prescribed a controlled substance at d/c from ED?: No Referrals: None,Stated [Primary Care Provider] - 1-2 days Time of Disposition: 01:00
--- NOTE | 2024-05-16 00:26 | CT ---
EXAM: CT Head Without Intravenous Contrast CLINICAL HISTORY: ITS.REASON CT Reason: clarke TECHNIQUE: Axial computed tomography images of the head/brain without intravenous contrast. CTDI is 49.2 mGy and DLP is 1227.4 mGy-cm. This CT exam was performed using one or more of the following dose reduction techniques: automated exposure control, adjustment of the mA and/or kV according to patient size, and/or use of iterative reconstruction technique. COMPARISON: No relevant prior studies available. FINDINGS: No acute intracranial hemorrhage. No midline shift or mass effect. The territorial solis-white matter differentiation is maintained throughout. The ventricles and sulci are commensurate with age. The visualized orbits appear grossly unremarkable. The calvarium is intact. The visualized paranasal sinuses and mastoid air cells are grossly clear. IMPRESSION: No acute intracranial hemorrhage, midline shift, or mass effect.
[2024-05-16] MEDS: SODIUM CHLORIDE 0.9% 1,000 ML IV STA (00:33)
[2024-05-16] MEDS: PROCHLORPERAZINE INJ 10 MG/2 ML VIAL IVP STA (00:33)
[2024-05-16] MEDS: KETOROLAC 15 MG/ML 1 ML VIAL IVP STA (00:33)
[2024-05-16] MEDS: diphenhydrAMINE 50 MG/ML 1 ML VIAL IVP STA (01:10)
[2024-05-16] MEDS: LORazepam 2 MG/ML INJ IV STA (01:14)
[2024-05-16] MEDS: methylPREDNISolone SOD SUCCIN 250 MG in SODIUM CHLORIDE 0.9% 100 ML IVPB STA (01:14)
[2024-05-16 04:49] VITALS: BP 122/67; PULSE 71; RESP 16
== END 2024-05-16 03:45 | disposition home or self-care (01) ==
LOC: EC 20:58
DX: R51.9 Headache, unspecified (principal); F17.290 Nicotine dependence, other tobacco product, uncomplicated; Z88.1 Allergy status to other antibiotic agents; Z88.2 Allergy status to sulfonamides; Z88.5 Allergy status to narcotic agent; Z88.8 Allergy status to other drugs, medicaments and biological substances
CPT/HCPCS: 99284; 96365; 96375 ×4; 96361; 70450; J2060; J1200; J0780; J1885; J2919